=== PATIENT | female | born 1955 | race Caucasian/White ===

== ENCOUNTER 2020-05-16 09:59 | Emergency (ER) | payer MEDICARE ==
--- NOTE | 2020-05-16 10:15 | ED Physician Documentation ---
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 Patient states her dyspnea started around that time.). No: Out of meds, URI (not having fever, nor productive cough. Has had some mild dry cough.) Improved by: Rest. No: O2 Worsened by: Exertion, Coughing. No: Laying flat Associated symptoms: Chest pain / discomfort (tightness), Other (noted her BP to be elevated today. Does not take it regularly.). No: Fever, Hemoptysis, Palpitations Similar symptoms before: Has not had sx before Recently seen: Not recently seen Review of Systems Constitutional: denies: Fever, Chills Nose: denies: Rhinorrhea / runny nose, Congestion Throat: denies: Sore throat Cardiac: denies: Chest pain / pressure, Palpitations, Pedal edema, Calf pain Respiratory: reports: Dyspnea, Cough, Wheezing. denies: Hemoptysis GI: denies: Abdominal Pain, Nausea, Vomiting Skin: denies: Rash, Lesions Neurologic: reports: Generalized weakness. denies: Near syncope PD PAST MEDICAL HISTORY - Past Medical History Cardiovascular: Hypertension Respiratory: None Endocrine/Autoimmune: None GI: None - Present Medications Home Medications: Ambulatory Orders Medication Instructions Recorded Confirmed Albuterol Sulf [Ventolin Hfa 2 - 3 puffs INH Q4HR PRN #1 inhaler 05/16/20 Inhaler] Benzonatate [Tessalon] 100 mg PO TID PRN #20 cap 05/16/20 Ondansetron Odt [Zofran Odt] 1 tab PO PRN PRN 05/16/20 05/16/20 dexAMETHasone [Decadron] 4 mg PO DAILY #7 tablet 05/16/20 - Allergies Allergies/Adverse Reactions: Allergies Allergy/AdvReac Type Severity Reaction Status Date / Time Sulfa (Sulfonamide Allergy Anaphylaxis Verified 05/16/20 10:04 Antibiotics) - Living Situation Living Situation: reports: With friend(s) Living Arrangement: reports: At home - Social History Does the pt smoke?: No PD ED PE NORMAL - Vitals Vital signs reviewed: Yes - General General: Alert and oriented X 3, No acute distress, Well developed/nourished - HEENT HEENT: Pharynx benign - Neck Neck: Supple, no meningeal sign, No adenopathy - Cardiac Cardiac: RRR, No murmur - Respiratory Respiratory: Clear bilaterally (with just some mild exp wheezing/tightness. ) - Abdomen Abdomen: Soft, Non tender - Derm Derm: Normal color, Warm and dry - Extremities Extremities: Normal ROM s pain, No edema, No calf tenderness / cord - Neuro Neuro: Alert and oriented X 3, No motor deficit, Normal speech Results - Vitals Vitals: Vital Signs - 24 hr 05/16/20 05/16/20 05/16/20 10:01 10:31 11:06 Temperature 36.1 C L Heart Rate 95 90 74 Respiratory 24 20 20 Rate Blood Pressure 151/90 H 137/85 H O2 Saturation 96 96 05/16/20 05/16/20 05/16/20 12:14 12:24 12:40 Temperature Heart Rate 96 78 73 Respiratory 22 18 18 Rate Blood Pressure 146/82 H 139/80 H O2 Saturation 98 98 Oxygen O2 Source Room air - EKG (time done) 10:53 Rate: Rate (enter#) (86) Rhythm: NSR [place]: Normal Intervals: Normal VT QRS: Normal Ischemia: Normal ST segments. No: ST elevation c/w ischemia, ST depression - Labs Labs: Laboratory Tests 05/16/20 05/16/20 05/16/20 10:41 10:41 10:41 WBC 8.0 RBC 4.69 Hgb 13.0 Hct 37.8 MCV 80.6 L MCH 27.7 MCHC 34.4 RDW 13.2 Plt Count 187 MPV 9.4 Neut # (Auto) Not Reportable Lymph # (Auto) Not Reportable [place] # (Auto) Not Reportable Eos # (Auto) Not Reportable Baso # (Auto) Not Reportable Absolute Nucleated RBC Not Reportable Total Counted 100 Band Neuts % (Manual) 4 Reactive Lymphs % (Man) 34 Abnorm Lymph % (Manual) 0 Myelocytes % 2 H Nucleated RBC % Not Reportable Neutrophils # (Manual) 2.6 Lymphocytes # (Manual) 3.5 Monocytes # (Manual) 1.4 H Eosinophils # (Manual) 0.3 Basophils # (Manual) 0.0 Differential Comment MANUAL DIFFERENTIAL Manual Slide Review Indicated Sodium 130 L Potassium 3.2 L Chloride 94 L Carbon Dioxide 20 L Anion Gap 16.0 H BUN 12 Creatinine 0.9 Estimated GFR (MDRD) 63 L Glucose 96 Calcium 8.4 L Total Bilirubin 1.8 H AST 38 ALT 23 Alkaline Phosphatase 74 Troponin I High Sens 12.9 B-Natriuretic Peptide Total Protein 6.2 L Albumin 3.5 Globulin 2.7 Albumin/Globulin Ratio 1.3 Lipase 20 L 05/16/20 10:41 WBC RBC Hgb Hct MCV MCH MCHC RDW Plt Count MPV Neut # (Auto) Lymph # (Auto) [place] # (Auto) Eos # (Auto) Baso # (Auto) Absolute Nucleated RBC Total Counted Band Neuts % (Manual) Reactive Lymphs % (Man) Abnorm Lymph % (Manual) Myelocytes % Nucleated RBC % Neutrophils # (Manual) Lymphocytes # (Manual) Monocytes # (Manual) Eosinophils # (Manual) Basophils # (Manual) Differential Comment Manual Slide Review Sodium Potassium Chloride Carbon Dioxide Anion Gap BUN Creatinine Estimated GFR (MDRD) Glucose Calcium Total Bilirubin AST ALT Alkaline Phosphatase Troponin I High Sens B-Natriuretic Peptide 19 Total Protein Albumin Globulin Albumin/Globulin Ratio Lipase - Rads (name of study) chest xray Radiology: Prelim report reviewed (no acute process), See rad report PD MEDICAL DECISION MAKING - ED course Complexity details: reviewed results (BP a bit elevated but not enough for her symptoms. ), considered differential (I think her symptoms are reactive to environmental irritants from her roommates cats and also the chemical assembly cleaner used to clean up. No signs of CHF, [place], pneumonia. Improved with neb treatment. ), d/w patient Departure - Departure Disposition: 01 Home, Self Care Clinical Impression: Dyspnea Qualifiers: Dyspnea type: shortness of breath Qualified Code(s): R06.02 - Shortness of breath Reactive airway disease Qualifiers: Asthma severity: mild Asthma persistence: intermittent Asthma complication type: with acute exacerbation Qualified Code(s): J45.21 - Mild intermittent asthma with (acute) exacerbation Condition: Stable Record reviewed to determine appropriate education?: Yes Instructions: ED Bronchitis Asthmatic Prescriptions: Albuterol Sulf [Ventolin Hfa Inhaler] 2 - 3 puffs INH Q4HR PRN #1 inhaler PRN Reason: Shortness Of Air/Wheezing dexAMETHasone [Decadron] 4 mg PO DAILY #7 tablet Benzonatate [Tessalon] 100 mg PO TID PRN #20 cap PRN Reason: Cough Comments: I think you are likely having bronchial and airway irritation and inflammation from environmental factors. No signs of pneumonia, heart failure, heart attack, collapsed lung or other serious concerns. I would treat this with an albuterol inhalerl 2 to 3 puffs 4 times a day and extra times as needed. Also Decadron steroid for inflammation of the airways. Add Tessalon if needed for cough. I would anticipate improvement over the next several days and close to baseline by 4-5 days. Follow-up if not improving well over the next several days. Discharge Date/Time: 05/16/20 12:45
[2020-05-16] MEDS ORDERED: MAG HYDROX/AL HYDROX/SIMETH 30 ML UDC PO STA (10:43)
[2020-05-16] MEDS ORDERED: ALBUTEROL NEB 2.5 MG/3 ML INH STA (10:43)
[2020-05-16 10:54] LABS: BASOPHILS % (AUTO) 0.5 %; EOSINOPHILS % (AUTO) 1.9 %; HCT - HEMATOCRIT 37.8 % (37.0-47.0); LYMPHOCYTES % (AUTO) 61.3 %; MEAN CORPUSCULAR HEMOGLOBIN 27.7 pg (27.0-31.0); MEAN CORPUSCULAR HGB CONC 34.4 g/dL (32.0-36.0); MEAN CORPUSCULAR VOLUME 80.6 fL (81.0-99.0); MEAN PLATELET VOLUME 9.4 fL (7.9-10.8); MONOCYTES % (AUTO) 8.3 %; NEUTROPHILS % (AUTO) 27.4 %; PLT - PLATELET COUNT 187 10^3/uL (130-450); RED BLOOD COUNT 4.69 10^6/uL (4.20-5.40); RED CELL DISTRIBUTION WIDTH 13.2 % (12.0-15.0)
[2020-05-16 10:57] LABS: SLIDE REVIEW? Indicated
[2020-05-16 10:58] LABS: ABNORMAL LYMPHS % (MANUAL) 0 %
[2020-05-16 11:10] LABS: ALBUMIN 3.5 g/dL (3.2-5.5); ALBUMIN/GLOBULIN RATIO 1.3 (1.0-2.2); BILIRUBIN,TOTAL 1.8 mg/dL (0.2-1.0); CALCIUM 8.4 mg/dL (8.5-10.3); CREATININE 0.9 mg/dL (0.4-1.0); POTASSIUM 3.2 mmol/L (3.5-5.0); TOTAL PROTEIN 6.2 g/dL (6.7-8.2)
--- NOTE | 2020-05-16 11:20 | XRAY Report ---
PROCEDURE: Chest 1 View X-Ray INDICATIONS: Chest Pain TECHNIQUE: One view of the chest was acquired. COMPARISON: None FINDINGS: Surgical changes and devices: None. Lungs and pleura: No pleural effusions or pneumothorax. Lungs are clear. Mediastinum: Mediastinal contours appear normal. Heart size is normal. Bones and chest wall: No suspicious bony lesions. Overlying soft tissues appear unremarkable. IMPRESSION: No acute cardiopulmonary disease process. Reviewed by: Osiris Liang MD, PhD on 05/16/2020 11:18 AM PDT Approved by: Osiris Liang MD, PhD on 05/16/2020 11:18 AM PDT Station ID: [id number]
[2020-05-16 11:25] LABS: BAND NEUTROPHILS % (MANUAL) 4 %; DIFFERENTIAL COMMENT MANUAL DIFFERENTIAL; EOSINOPHILS # (MANUAL) 0.3 10^3/uL (0-0.7); LYMPHOCYTES # (MANUAL) 3.5 10^3/uL (1.5-3.5); LYMPHOCYTES % (MANUAL) 10 %; MONOCYTES # (MANUAL) 1.4 10^3/uL (0.0-1.0); MYELOCYTES % (MANUAL) 2 %; NEUTROPHILS # (MANUAL) 2.6 10^3/uL (1.5-6.6); REACTIVE LYMPHS % (MANUAL) 34 %
[2020-05-16] MEDS ORDERED: DEXAMETHASONE 10 MG/ML VIAL IVP STA (11:39)
[2020-05-16] MEDS ORDERED: ALBUTEROL 1 PUFF INH STA (11:53)
[2020-05-16] MEDS ORDERED: BENZONATATE 100 MG CAPSULE PO STA (11:54)
[2020-05-16 12:48] VITALS: BP 139/80
== END 2020-05-16 12:45 | disposition home or self-care (01) ==
LOC: ED 09:59
DX: J45.21 Mild intermittent asthma with (acute) exacerbation (principal); I10 Essential (primary) hypertension
CPT/HCPCS: 36415; 71045; 80053; 83690; 83880; 84484; 85025; 93005; 94640; 96374; 99284; A9270

== ENCOUNTER 2020-06-14 08:00 | Outpatient (CLI) | payer MEDICARE ==
[2020-06-14 20:34] LABS: BACTERIAL VAGINOSIS DNA NEGATIVE (NEGATIVE); CANDIDA GLABRATA DNA NEGATIVE (NEGATIVE); CANDIDA GROUP DNA NEGATIVE (NEGATIVE); CANDIDA KRUSEI DNA NEGATIVE (NEGATIVE); TRICHOMONAS VAGINALIS DNA NEGATIVE (NEGATIVE)
== END 2020-06-14 23:59 | disposition home or self-care (01) ==
LOC: LAB.R 08:00
PROVIDERS: ATTEND Family Medicine
DX: N76.0 Acute vaginitis (principal)
CPT/HCPCS: 87661; 87801

== ENCOUNTER 2022-09-05 08:45 | Outpatient (CLI) | payer MEDICARE | END 2022-09-05 09:00 | disposition home or self-care (01) | LOC: DI.N 08:45 | PROVIDERS: ATTEND Family Medicine | DX: Z53.9 Procedure and treatment not carried out, unspecified reason (principal) ==

== ENCOUNTER 2022-09-05 09:00 | Outpatient (CLI) | payer MEDICARE | END 2022-09-05 09:15 | disposition home or self-care (01) | LOC: LAB.N 09:00 | PROVIDERS: ATTEND Family Medicine | DX: M54.50 Low back pain, unspecified (principal); R31.9 Hematuria, unspecified | CPT/HCPCS: 87086 ==

== ENCOUNTER 2022-09-13 09:25 | Outpatient (CLI) | payer MEDICARE | END 2022-09-13 09:26 | disposition short-term general hospital (02) | LOC: EMS 09:25 | DX: M54.50 Low back pain, unspecified (principal); R10.814 Left lower quadrant abdominal tenderness; R10.813 Right lower quadrant abdominal tenderness; R11.2 Nausea with vomiting, unspecified | CPT/HCPCS: A0425; A0427; A0888 ==

== ENCOUNTER 2023-08-07 16:04 | Outpatient (CLI) | payer MEDICARE ==
[2023-08-07 16:40] LABS: CALCIUM 11.3 mg/dL (8.5-10.3); CREATININE 1.2 mg/dL (0.6-1.3); PHOSPHORUS 2.6 mg/dL (2.5-5.0); POTASSIUM 4.2 mmol/L (3.5-4.5); URIC ACID 5.6 mg/dL (2.3-6.6)
== END 2023-08-07 16:05 | disposition home or self-care (01) ==
LOC: LAB 16:04
PROVIDERS: ATTEND Internal Medicine Medical Oncology
DX: C84.48 Peripheral T-cell lymphoma, not elsewhere classified, lymph nodes of multiple sites (principal)
CPT/HCPCS: 36415; 80048; 84100; 84550

== ENCOUNTER 2023-08-21 09:52 | Day surgery (SDC) | payer MEDICARE ==
[2023-08-21] MEDS: LACTATED RINGERS 1,000 ML IV ONE ×2 (10:03→13:41)
[2023-08-21] MEDS ORDERED: BUPIVACAINE 0.5% PF 10 ML VIAL ONE (11:31)
[2023-08-21] MEDS ORDERED: LIDOCAINE 1%-EPI 1:100000 20 ML MDV ONE (11:31)
--- NOTE | 2023-08-21 11:31 | ANESTHESIA ---
Pre-Anesthesia VS, & Labs - Diagnosis T Cell Lymphoma - Procedure Port Placement Vital Signs: Temp Pulse Resp BP Pulse Ox O2 Flow Rate 36.5 C 100 14 165/97 H 100 08/21/23 10:18 08/21/23 10:18 08/21/23 10:18 08/21/23 10:18 08/21/23 10:18 Height: 5 ft 4 in Weight (kg): 64.6 kg Body Mass Index: 24.4 BMI Classification: Normal - NPO >8 hours - Is Patient ?: No Home Medications and Allergies Home Medications: Ambulatory Orders Omeprazole 20 mg PO TID 08/20/23 Valacyclovir HCl [Valtrex] 1,000 mg PO DAILY 08/20/23 Magic Mouthwash 1 each PO TID 08/21/23 allopurinoL [Allopurinol] 300 mg PO DAILY 08/21/23 amLODIPine [Norvasc] 10 mg PO DAILY 08/21/23 Omeprazole 20 mg PO TID 08/20/23 Valacyclovir HCl [Valtrex] 1,000 mg PO DAILY 08/20/23 Magic Mouthwash 1 each PO TID 08/21/23 allopurinoL [Allopurinol] 300 mg PO DAILY 08/21/23 amLODIPine [Norvasc] 10 mg PO DAILY 08/21/23 Allergies/Adverse Reactions: Allergies Allergy/AdvReac Type Severity Reaction Status Date / Time Sulfa (Sulfonamide Allergy Anaphylaxis Verified 05/16/20 10:04 Antibiotics) Anes History & Medical History - Anesthetic History Anesthesia Complications: reports: No previous complications Family history of Anesthesia Complications: Denies Family history of Malignant Hyperthermia: Denies - Medical History Cardiovascular: reports: Hypertension Pulmonary: reports: None Gastrointestinal: reports: None Urinary: reports: None Neuro: reports: None Musculoskeletal: reports: None Endocrine/Autoimmune: reports: None Blood Disorders: reports: None Skin: reports: None Smoking Status: Never smoker Psychosocial: reports: No issues indicated History of Cancer?: Yes (T Cell Lymphoma current; no radiation ) - Surgical History Eyes Ears Nose Throat (EENT): reports: Tonsil/Adenoidectomy Gynecologic: reports: Tubal ligation, Breast reduction Results - EKG Results EKG Comparison: Reviewed EKG, Normal EKG Exam General: Alert, Oriented x3, Cooperative, No acute distress Dental: WNL Mouth Openin Fingerbreadth Neck Mobility: Normal Mallampati classification: I Thyromental Distance: 4-6 cm Respiratory: Lungs clear, Normal breath sounds, No respiratory distress, No accessory muscle use Cardiovascular: Regular rate, Normal S1, Normal S2, No murmurs Mental/Cognitive Status: Alert/Oriented X3, Normal for patient Cognitive Status: Within normal limits Plan Anesthesia Type: General Consent for Procedure(s) Verified and Reviewed: Yes Code Status: Attempt Resuscitation ASA classification: 3-Severe systemic disease Is this case an emergency?: No
[2023-08-21] MEDS ORDERED: PROPOFOL 500 MG/50 ML 500 MG/50 ML VIAL ONE (11:40)
[2023-08-21] MEDS ORDERED: PROPOFOL 200 MG/20 ML VIAL IVP ONE (11:40)
[2023-08-21] MEDS ORDERED: MIDAZOLAM 2 MG/2 ML VIAL ONE (11:41)
[2023-08-21] MEDS ORDERED: fentaNYL 100 MCG/2 ML VIAL ONE (11:42)
[2023-08-21] MEDS ORDERED: LIDOCAINE-PF 2% 10 ML AMP SUBQ ONE (11:42)
[2023-08-21] MEDS: LIDOCAINE 1%-EPI 1:100000 20 ML MDV SUBQ ONE ×2 (12:51)
[2023-08-21] MEDS: BUPIVACAINE 0.5% PF 10 ML VIAL IM ONE ×2 (12:51)
[2023-08-21] MEDS ORDERED: ONDANSETRON 4 MG/2 ML VIAL ONE (12:53)
[2023-08-21] MEDS ORDERED: DEXAMETHASONE 4 MG/ML VIAL ONE (12:53)
[2023-08-21] MEDS ORDERED: PHENYLEPHRINE HCL 0.5 MG/5 ML AMPULE ONE (13:05)
[2023-08-21] MEDS ORDERED: ONDANSETRON 4 MG/2 ML VIAL IVP PRN (14:05)
[2023-08-21] MEDS ORDERED: ACETAMINOPHEN 500 MG TABLET PO PRN (14:05)
[2023-08-21 14:09] VITALS: BP 114/72; O2SAT 98
--- NOTE | 2023-08-21 14:12 | OPERATIVE REPORT ---
Operative Report - General Procedure Date: 08/21/23 Planned Procedure: placement of portacatheter Pre-Op Diagnosis: t cell lymphoma Procedure Performed: placement of R IJ portacatheter with ultrasound and fluoroscopy guidance Post Op Diagnosis: t cell lymphoma - Procedure Note Primary Surgeon: Dr. Tracy Blackmon Anesthesia Provider: Della Dean CRNA Anesthesia Technique: Local, MAC Pathology: none Estimated Blood Loss (mL): 5 Indications: The patient was diagnosed with T-cell lymphoma. Her oncology team would like her to have a portacatheter. She was seen and evaluated in preop today. We discussed the risks, benefits, and alternatives of the procedure including bleeding, infection, damage to surrounding structures including blood vessels, and pneumothorax, as well as as the risk for infection or dysfunction of the port requiring removal and/or replacement. The patient voiced understanding, her questions were answered, and she wished to proceed. A consent was signed by the patient prior to surgery today. Findings: 1.Patent right internal jugular vein 2. Portacatheter flushes and draws easily. 3. Port loaded with 2.5 mL 100 units/mL heparin Complications: none - Other Other Information/Narrative: The patient was taken to the operative suite and placed in the supine position preoperative ERAS medications given. Preoperative antibiotics given. MAC anesthesia was induced to the appropriate level of consciousness. An ultrasound was used to verify the right internal jugular vein was widely patent. The patient was then prepped and draped in the usual, sterile fashion. Next, a sterile ultrasound probe was used to visualize the right internal jugular vein local anesthetic was injected into the skin and subcutaneous tissues overlying this vessel and an 11 blade scalpel was used to make a small skin huan. Next, under direct ultrasound guidance, a Cook needle was used to gain access to the right internal jugular vein. This was successful on the first attempt. There was excellent return of dark red nonpulsatile blood. A guidewire was passed through the Cook needle without resistance. Fluoroscopy was used to verify the position of the wire. Ultrasound was also used to verify the position of the wire. Next, attention was turned to the chest. The location was chosen on the right anterior chest wall for the portacatheter to sit. The skin and subcutaneous tissues in this area were anesthetized with local as was the path which the catheter would follow up to the neck incision. A 15 blade scalpel was used to make a 2 cm incision in the which was carried down through the skin and subcutaneous tissues to the level of the clavipectoral fascia. A pocket was made with blunt dissection to accommodate the port. Port easily fit within the pocket. 2 interrupted sutures of 3-0 PDS were placed through the port to tack it to the clavipectoral fascia. These were tied into place and then the port was tunneled from the inferior chest wall incision to the superior neck incision. Next, the catheter was cut to the appropriate length, 20cm, under direct fluoroscopic guidance. A dilator and sheath were passed over the guidewire under direct fluoroscopic guidance and the dilator and guidewire were removed leaving only the breakaway sheath in place. The catheter was passed through the sheath and the sheath was broken away. The catheter was the only thing that remained within the vessel. Fluoroscopy confirmed that the catheter tip was in good position and that there were no kinks at the neck. The catheter flushed and blair easily. Next, 3-0 Vicryl was used in an interrupted fashion to reapproximate the deep dermal tissues at the chest incision. Then, 4-0 Monocryl was used in an interrupted subcuticular fashion to reapproximate the skin at the neck incision and in a running subcuticular fashion to reapproximate the skin at the chest incision. A sterile dressing of skin glue was placed. The port was flushed with 2.5 mL 100 units/mL heparinized saline. The patient tolerated the procedure well and there were no complications. A postoperative chest x-ray is pending at this time.
--- NOTE | 2023-08-21 14:15 | XRAY Report ---
PROCEDURE: Post Port Placement 1V CXR INDICATIONS: PAC placement in R IJ TECHNIQUE: One view of the chest was acquired. COMPARISON: None. FINDINGS: Surgical changes and devices: Right-sided Port-A-Cath is present with distal tip projecting over the proximal SVC. Lungs and pleura: No pleural effusions or pneumothorax. Lungs are clear. Mediastinum: Mediastinal contours appear normal. Heart size is normal. Bones and chest wall: No suspicious bony lesions. Overlying soft tissues appear unremarkable. IMPRESSION: Right Port-A-Cath in appropriate location. Reviewed by: Ju Springer MD on 08/21/2023 2:14 PM PDT Approved by: Ju Springer MD on 08/21/2023 2:14 PM PDT Station ID: [id number]
--- NOTE | 2023-08-21 14:39 | ANESTHESIA POST OP EVALUATION ---
Anesthesia Post Eval - Post Anesthesia Eval Vitals: Last Vital Signs Temp 36 C L 08/21/23 13:41 Pulse 91 08/21/23 14:01 Resp 18 08/21/23 14:01 BP 114/72 08/21/23 14:01 Pulse Ox 98 08/21/23 14:01 O2 Flow Rate CV Function Including HR & BP: Stable Pain Control: Satisfactory Nausea & Vomiting: Negative Mental Status: Baseline Respiratory Status: Airway Patent Hydration Status: Satisfactory Anesthesia Complications: None
--- NOTE | 2023-08-21 21:25 | XRAY Report ---
PROCEDURE: OR Port-A-Cath INDICATIONS: PORTACATH PLACEMENT FLUORO TIME: 000.2 TECHNIQUE: Real time fluoroscopy was performed of the thorax. COMPARISON: None. FINDINGS: Intraoperative fluoroscopic images shows placement of right chest wall Port-A-Cath, the tip is in SVC . IMPRESSION: Fluoroscopy guidance was provided intraoperatively for right chest wall Port-A-Cath placement. Reviewed by: Praneeth Jordan MD on 08/21/2023 9:24 PM PDT Approved by: Praneeth Jordan MD on 08/21/2023 9:24 PM PDT Station ID: [id number]
== END 2023-08-21 09:53 | disposition home or self-care (01) ==
LOC: SDS 09:52
PROVIDERS: ATTEND Surgery
DX: C91.50 Adult T-cell lymphoma/leukemia (HTLV-1-associated) not having achieved remission (principal); I10 Essential (primary) hypertension
CPT/HCPCS: 36561; C1788; J2372; J7120

== ENCOUNTER 2023-09-24 19:46 | Inpatient (IN) | payer MEDICARE ==
--- NOTE | 2023-09-24 20:51 | ED Physician Documentation ---
PD HPI FEVER - Stated complaint Stated Complaint: FEVER - Chief complaint Chief Complaint: Fever - History obtained from History obtained from: Patient - Additional information Additional information: HPI from patient. Patient is undergoing chemotherapy, the third (out of 6) round of CHOP on 09/18/2023; this is to treat angioimmunoblastic t-cell lymphoma. Patient says she was feeling well yesterday but, since waking this morning, she has had fatigue, generalized weakness throughout the day. She has had fevers today to a Tmax of 102.1. She denies cough, shortness of breath, abdominal pain, nausea/vomiting, diarrhea. She does have a sore throat secondary to thrush (her sore throat is not new) Review of Systems Constitutional: reports: Fever, Chills, Myalgias, Fatigue, Sweats Nose: denies: Congestion, Sinus pressure / pain Throat: reports: Sore throat Cardiac: reports: Reviewed and negative Respiratory: reports: Reviewed and negative GI: reports: Reviewed and negative : reports: Frequency. denies: Dysuria Skin: denies: Rash Neurologic: reports: Generalized weakness. 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 HEENT: Tonsil/Adenoidectomy - Present Medications Home Medications: Ambulatory Orders Medication Instructions Recorded Confirmed Omeprazole 20 mg PO TID 08/20/23 09/25/23 Valacyclovir HCl [Valtrex] 1,000 mg PO DAILY 08/20/23 09/25/23 Magic Mouthwash 1 each PO TID 08/21/23 09/25/23 allopurinoL [Allopurinol] 300 mg PO DAILY 08/21/23 09/25/23 amLODIPine [Norvasc] 10 mg PO DAILY 08/21/23 09/25/23 levoFLOXacin [Levaquin] 500 mg PO ONCE 10 Days #20 tablet 09/04/23 09/04/23 predniSONE [Prednisone] 100 mg PO 09/12/23 Acyclovir 400 mg PO BID 30 Days #60 tablet 09/18/23 09/25/23 Prochlorperazine [Compazine] 10 mg PO Q6H 10 Days #30 tablet 09/18/23 Benzonatate [Tessalon] 100 mg PO TID 09/25/23 09/25/23 Ondansetron [Ondansetron Odt] 8 mg PO Q12H PRN 09/25/23 09/25/23 - Allergies Allergies/Adverse Reactions: Allergies Allergy/AdvReac Type Severity Reaction Status Date / Time Sulfa (Sulfonamide Allergy Anaphylaxis Verified 09/24/23 20:26 Antibiotics) - Social History Does the pt smoke?: No Smoking Status: Never smoker Does the pt drink ETOH?: No Does the pt have substance abuse?: No - Immunizations Immunizations are current?: Yes PD ED PE NORMAL - Vitals Vital signs reviewed: Yes - General General: Alert and oriented X 3, No acute distress, Well developed/nourished - HEENT HEENT: Moist mucous membranes - Neck Neck: Supple, no meningeal sign - Cardiac Cardiac: No murmur - Respiratory Respiratory: No respiratory distress, Clear bilaterally - Abdomen Abdomen: Soft, Non tender, Non distended - Back Back: No CVA TTP - Derm Derm: Warm and dry - Extremities Extremities: No edema - Neuro Neuro: Alert and oriented X 3 Eye Opening: Spontaneous Motor: Obeys Commands Verbal: Oriented GCS Score: 15 PD ED PE EXPANDED - Cardiac Cardiac: Tachy, Regular Rhythm - Derm Derm: Pale Results - Vitals Vitals: Vital Signs - 24 hr 09/24/23 09/24/23 09/24/23 20:21 20:58 21:58 Temperature 38.0 C H 36.9 C Heart Rate 115 H 95 87 Respiratory 18 16 19 Rate Blood Pressure 147/71 H 138/64 H 122/67 O2 Saturation 99 99 94 09/24/23 09/24/23 09/24/23 22:28 22:30 23:00 Temperature 36.8 C 36 C L Heart Rate 88 88 84 Respiratory 16 16 16 Rate Blood Pressure 109/54 L 107/63 123/68 O2 Saturation 93 92 98 09/24/23 09/25/23 09/25/23 23:30 00:00 01:30 Temperature 36 C L 36.2 C L 36.2 C L Heart Rate 117 H 79 84 Respiratory 18 16 16 Rate Blood Pressure 112/70 122/63 122/63 O2 Saturation 98 98 98 09/25/23 02:00 Temperature 36 C L Heart Rate 81 Respiratory 17 Rate Blood Pressure 128/70 O2 Saturation 97 Oxygen O2 Source Room air - Labs Labs: Laboratory Tests 09/24/23 09/24/23 09/24/23 20:43 20:43 20:43 WBC 0.2 L* RBC 2.68 L Hgb 7.3 L Hct 22.9 L MCV 85.4 MCH 27.2 MCHC 31.9 L RDW 19.1 H Plt Count 214 MPV 9.2 Neut # (Auto) Not Reportable Lymph # (Auto) Not Reportable Jenkins # (Auto) Not Reportable Eos # (Auto) Not Reportable Baso # (Auto) Not Reportable Absolute Nucleated RBC Not Reportable Total Counted 25 Band Neuts % (Manual) 0 Abnorm Lymph % (Manual) 0 Nucleated RBC % Not Reportable Neutrophils # (Manual) 0.0 L* Lymphocytes # (Manual) 0.2 L Monocytes # (Manual) 0.0 Eosinophils # (Manual) 0.0 Basophils # (Manual) 0.0 Differential Comment MANUAL DIFFERENTIAL Platelet Estimate NORMAL (130-450,000) RBC Morph Micro Appear 1+ HYPOCHROMASIA Sodium 135 Potassium 3.6 Chloride 102 Carbon Dioxide 28 Anion Gap 5.0 L BUN 18 Creatinine 0.7 Estimated GFR (MDRD) 83 L Glucose 96 Lactic Acid 0.6 Calcium 9.3 Total Bilirubin 1.4 H AST 18 ALT 24 Alkaline Phosphatase 81 Total Protein 5.6 L Albumin 3.4 Globulin 2.2 Albumin/Globulin Ratio 1.5 Urine Color Urine Clarity Urine pH Ur Specific Midway Urine Protein Urine Glucose (UA) Urine Ketones Urine Occult Blood Urine Nitrite Urine Bilirubin Urine Urobilinogen Ur Leukocyte Esterase Urine RBC Urine WBC Ur Squamous Epith Cells Urine Bacteria Urine Culture Comments Nasal Adenovirus (PCR) Nasal B. parapertussis DNA (PCR) Nasal Coronavir 229E PCR Nasal Coronavir HKU1 PCR Nasal Coronavir NL63 PCR Nasal Coronavir OC43 PCR Nasal Enterovir/Rhinovir PCR Nasal Influenza B PCR Nasal Influenza A PCR Nasal Parainfluen 1 PCR Nasal Parainfluen 2 PCR Nasal Parainfluen 3 PCR Nasal Parainfluen 4 PCR Nasal RSV (PCR) Nasal B.pertussis DNA PCR Nasal C.pneumoniae (PCR) Raul Human Metapneumo PCR Nasal M.pneumoniae (PCR) Nasal SARS-CoV-2 (PCR) 09/24/23 09/24/23 20:43 20:57 WBC RBC Hgb Hct MCV MCH MCHC RDW Plt Count MPV Neut # (Auto) Lymph # (Auto) Jenkins # (Auto) Eos # (Auto) Baso # (Auto) Absolute Nucleated RBC Total Counted Band Neuts % (Manual) Abnorm Lymph % (Manual) Nucleated RBC % Neutrophils # (Manual) Lymphocytes # (Manual) Monocytes # (Manual) Eosinophils # (Manual) Basophils # (Manual) Differential Comment Platelet Estimate RBC Morph Micro Appear Sodium Potassium Chloride Carbon Dioxide Anion Gap BUN Creatinine Estimated GFR (MDRD) Glucose Lactic Acid Calcium Total Bilirubin AST ALT Alkaline Phosphatase Total Protein Albumin Globulin Albumin/Globulin Ratio Urine Color YELLOW Urine Clarity CLEAR Urine pH 7.5 Ur Specific Midway 1.020 Urine Protein NEGATIVE Urine Glucose (UA) NEGATIVE Urine Ketones NEGATIVE Urine Occult Blood NEGATIVE Urine Nitrite NEGATIVE Urine Bilirubin NEGATIVE Urine Urobilinogen 0.2 (NORMAL) Ur Leukocyte Esterase NEGATIVE Urine RBC 0-5 Urine WBC 0-3 Ur Squamous Epith Cells RARE Squamous Urine Bacteria Rare Urine Culture Comments NOT INDICATED Nasal Adenovirus (PCR) NOT DETECTED Nasal B. parapertussis DNA (PCR) NOT DETECTED Nasal Coronavir 229E PCR NOT DETECTED Nasal Coronavir HKU1 PCR NOT DETECTED Nasal Coronavir NL63 PCR NOT DETECTED Nasal Coronavir OC43 PCR NOT DETECTED Nasal Enterovir/Rhinovir PCR DETECTED A Nasal Influenza B PCR NOT DETECTED Nasal Influenza A PCR NOT DETECTED Nasal Parainfluen 1 PCR NOT DETECTED Nasal Parainfluen 2 PCR NOT DETECTED Nasal Parainfluen 3 PCR NOT DETECTED Nasal Parainfluen 4 PCR NOT DETECTED Nasal RSV (PCR) NOT DETECTED Nasal B.pertussis DNA PCR NOT DETECTED Nasal C.pneumoniae (PCR) NOT DETECTED Raul Human Metapneumo PCR NOT DETECTED Nasal M.pneumoniae (PCR) NOT DETECTED Nasal SARS-CoV-2 (PCR) NOT DETECTED - Rads (name of study) chest xray Relevant Findings:: Prelim report reviewed, See rad report PD Medical Decision Making - ED course Complexity details: reviewed results, re-evaluated patient, considered differential, d/w patient ED course: Patient presents with malaise, fatigue, and fever. She is severely neutropenic on CBC with WBC 0.2 and 0.0 neutrophils. Looking at previous results, the WBC was 9.2 on the of this month, 0.6 on 03 September. She is also significantly anemic tonight with hemoglobin of 7.3 (9.2 on 09/17, 8.5 on 09/03). Tonight's platelet level is normal. Lactate normal (0.6). Unremarkable urinalysis, chest xray. Respiratory PCR panel is positive for enterovirus/rhinovirus. Two sets of blood cultures are drawn and sent to lab. The patient is in NAD and unremarkable exam including lungs clear to auscultation bilaterally, nontender abdominal exam. Admission to the inpatient setting is indicated for neutropenic fever. She is given 4.5 g of Zosyn IV. I discussed this case with the patient's on-call oncologist for her group who agrees with admission, and she says that patient is appropriate for admission to [facility]. d/w [employer] telehealth practitioner. There was significant delay in hearing back from them, as the consulted telehealth practitioner called to my [employer] to inform that they were having problems connecting to [employer]. Per there request, I entered a second/new consult and eventually heard back from them. Accepted to hospitalist service Departure - Departure Disposition: [facility] DC/[facility] Clinical Impression: Neutropenic fever Condition: Stable Discharge Date/Time: 09/25/23 03:13
[2023-09-24 20:56] LABS: EOSINOPHILS % (AUTO) 5.6 %; HCT - HEMATOCRIT 22.9 % (37.0-47.0); HGB - HEMOGLOBIN 7.3 g/dL (12.0-16.0); LYMPHOCYTES % (AUTO) 83.3 %; MEAN CORPUSCULAR HEMOGLOBIN 27.2 pg (27.0-31.0); MEAN CORPUSCULAR HGB CONC 31.9 g/dL (32.0-36.0); MEAN CORPUSCULAR VOLUME 85.4 fL (81.0-99.0); MEAN PLATELET VOLUME 9.2 fL (7.9-10.8); MONOCYTES % (AUTO) 5.6 %; NEUTROPHILS % (AUTO) 5.5 %; PLT - PLATELET COUNT 214 10^3/uL (130-450); RED BLOOD COUNT 2.68 10^6/uL (4.20-5.40); RED CELL DISTRIBUTION WIDTH 19.1 % (12.0-15.0)
[2023-09-24 21:04] LABS: WHITE BLOOD COUNT 0.2 x10^3/uL (4.8-10.8)
[2023-09-24 21:08] LABS: ABNORMAL LYMPHS % (MANUAL) 0 %; BAND NEUTROPHILS % (MANUAL) 0 %
[2023-09-24] MEDS: ACETAMINOPHEN 325 MG TABLET PO STA (21:21)
[2023-09-24 21:24] LABS: BILIRUBIN,URINE NEGATIVE (NEGATIVE); GLUCOSE, URINE (UA) NEGATIVE (NEGATIVE); KETONES,URINE (UA) NEGATIVE (NEGATIVE); LEUKOCYTE ESTERASE, URINE NEGATIVE (NEGATIVE); NITRITE,URINE NEGATIVE (NEGATIVE); OCCULT BLOOD,URINE NEGATIVE (NEGATIVE); PH,URINE 7.5 PH (5.0-7.5); PROTEIN,URINE NEGATIVE (NEGATIVE); UROBILINOGEN,URINE 0.2 (NORMAL) E.U./dL (NORMAL)
[2023-09-24 21:26] LABS: ALBUMIN 3.4 g/dL (3.2-5.5); ALBUMIN/GLOBULIN RATIO 1.5 (1.0-2.2); BILIRUBIN,TOTAL 1.4 mg/dL (0.2-1.0); CALCIUM 9.3 mg/dL (8.5-10.3); CREATININE 0.7 mg/dL (0.6-1.3); POTASSIUM 3.6 mmol/L (3.5-4.5); TOTAL PROTEIN 5.6 g/dL (6.4-8.9)
[2023-09-24 21:33] LABS: CLARITY,URINE CLEAR (CLEAR)
[2023-09-24 21:41] LABS: BASOPHILS % (MANUAL) 4 %; LYMPHOCYTES # (MANUAL) 0.2 10^3/uL (1.5-3.5); LYMPHOCYTES % (MANUAL) 84 %
[2023-09-24 21:43] LABS: DIFFERENTIAL COMMENT MANUAL DIFFERENTIAL; PLATELET ESTIMATE, MANUAL NORMAL (130-450,000) (NORMAL)
[2023-09-24 21:47] LABS: B. PARAPERTUSSIS- RESP PCR PAN NOT DETECTED; B. PERTUSSIS- RESP PCR PANEL NOT DETECTED; C. PNEUMONIAE- RESP PCR PANEL NOT DETECTED; CORONAVIRUS 229E-RESP PCR NOT DETECTED; CORONAVIRUS HKU1-RESP PCR NOT DETECTED; CORONAVIRUS NL63-RESP PCR NOT DETECTED; CORONAVIRUS OC43-RESP PCR NOT DETECTED; HUMAN METAPNEUMOVIRUS NOT DETECTED; INFLUENZA A- RESP PCR PANEL NOT DETECTED; INFLUENZA B - RESP PCR PANEL NOT DETECTED; M. PNEUMONIAE- RESP PCR PANEL NOT DETECTED; PARAINFLUENZA VIRUS 1 NOT DETECTED; PARAINFLUENZA VIRUS 2 NOT DETECTED; PARAINFLUENZA VIRUS 3 NOT DETECTED; PARAINFLUENZA VIRUS 4 NOT DETECTED; RHINOVIRUS/ENTEROVIRUS DETECTED; RSV- RESP PCR PANEL NOT DETECTED; SARS-CoV-2 -RESP PCR PANEL NOT DETECTED
[2023-09-24 21:49] LABS: BACTERIA,URINE Rare /HPF (None Seen); RBC,URINE 0-5 /HPF (0-5); SQUAMOUS EPITHELIAL CELL,UR RARE Squamous (<= Few); WBC,URINE 0-3 /HPF (0-5)
--- NOTE | 2023-09-24 23:55 | XRAY Report ---
PROCEDURE: Chest 1V INDICATIONS: Sepsis TECHNIQUE: One view of the chest was acquired. COMPARISON: 08/21/2023 FINDINGS: Surgical changes and devices: Tunneled right port device is unchanged in positioning. Lungs and pleura: No pleural effusions or pneumothorax. Minimal streaky bibasilar opacities favored to represent atelectasis. No dense consolidations. Mediastinum: Mediastinal contours appear normal. Heart size is normal. Bones and chest wall: No suspicious bony lesions. Overlying soft tissues appear unremarkable. IMPRESSION: No acute cardiopulmonary process. Minimal streaky bibasilar opacities favored to represent atelectasis. No definite consolidation. Reviewed by: Christian Flood MD on 09/24/2023 11:54 PM PDT Approved by: Christian Flood MD on 09/24/2023 11:54 PM PDT Station ID: [id number]
[2023-09-25] MEDS: PIPERACILLIN/TAZOBACTAM 4.5 GM in SODIUM CHLORIDE 0.9% MINIBAG 100 ML IV STA (00:08)
[2023-09-25] MEDS ORDERED: SODIUM CHLORIDE FLUSH 0.9% 10 ML SYRINGE IVP PRN (02:42)
--- NOTE | 2023-09-25 02:57 | HISTORY & PHYSICAL EXAMINATION ---
Chief Complaint - Chief Complaint Chief Complaint: fatigue History of Present Illness - Admitted From Admitted From:: home - History Obtained From Records Reviewed: chart review History obtained from: patient, her daughter, ER staff Exam Limitations: telemedicine - History of Present Illness HPI Comment/Other: Ms Wright is a 68 yo F with angioimmunoblastic T cell lymphoma, currently undergoing chemotherapy with CHOP - last treatment on 09/18/23, which was her 3rd of 6 treatments. Patient took her post chemo prednisone/levaquin x 5 days as prescribed. Yesterday morning she started to feel very tired, no fevers/chills that she was aware of, but was found to be febrile in ER to 102.1. She denies nausea, vomiting, diarrhea. Last BM was yesterday. Denies blood in stool or dark stool. Denies cough, sputum production. She has thrush for which she uses magic mouthwash. She was having abdominal pain earlier, it has since resolved. She also has indigestion which causes a tightness in her chest at times, improves with burping. Patient denies any fevers/complications with prior rounds of chemotherapy. Her daughter is with her at bedside. 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, Breast reduction HEENT: reports: Tonsil/Adenoidectomy - Family & Social History Living Situation: With friend(s) Meds/Allgy - Home Medications Home Medications: Ambulatory Orders Medication Instructions Recorded Confirmed Omeprazole 20 mg PO TID 08/20/23 09/04/23 Valacyclovir HCl [Valtrex] 1,000 mg PO DAILY 08/20/23 09/04/23 Magic Mouthwash 1 each PO TID 08/21/23 09/04/23 allopurinoL [Allopurinol] 300 mg PO DAILY 08/21/23 09/04/23 amLODIPine [Norvasc] 10 mg PO DAILY 08/21/23 09/04/23 levoFLOXacin [Levaquin] 500 mg PO ONCE 10 Days #20 tablet 07/03/24 07/03/24 predniSONE [Prednisone] 100 mg PO 09/12/23 Acyclovir 400 mg PO BID 30 Days #60 tablet 09/18/23 Prochlorperazine [Compazine] 10 mg PO Q6H 10 Days #30 tablet 09/18/23 - Allergies Allergies/Adverse Reactions: Allergies Allergy/AdvReac Type Severity Reaction Status Date / Time Sulfa (Sulfonamide Allergy Anaphylaxis Verified 09/24/23 20:26 Antibiotics) Exam - Vital Signs Reviewed Vital Signs: Yes Vital Signs: Vital Signs x48h Temp Pulse Resp BP Pulse Ox 09/25/23 02:00 36 C L 81 17 128/70 97 09/25/23 01:30 36.2 C L 84 16 122/63 98 09/25/23 00:00 36.2 C L 79 16 122/63 98 09/24/23 23:30 36 C L 117 H 18 112/70 98 09/24/23 23:00 36 C L 84 16 123/68 98 09/24/23 22:30 36.8 C 88 16 107/63 92 09/24/23 22:28 88 16 109/54 L 93 09/24/23 21:58 87 19 122/67 94 09/24/23 20:58 36.9 C 95 16 138/64 H 99 09/24/23 20:21 38.0 C H 115 H 18 147/71 H 99 - Physical Exam General Appearance: positive: No acute distress, Alert Respiratory: positive: No respiratory distress Skin: positive: Color nml, No rash Neurologic/Psychiatric: positive: Oriented x3, Mood/affect nml Sepsis Event Note (H) - Evaluation Current Stage of Sepsis: Sepsis Possible source of Sepsis: positive: Unknown - Sepsis Criteria Sepsis Criteria: Recorded Heart Rate greater than 90 bpm, WBC count greater than 12,000 or less than 4000 Conclusion/Plan - Lab Results Lab results reviewed: Yes Fish Bones: 09/24/23 20:43 09/24/23 20:43 - Diagnostic Imaging Results Diagnostic Imaging Results: positive: Final report reviewed - Other Other Results/Comments: Assessment/Plan Sepsis Neutropenic fever -Patient meets sepsis criteria with leukopenia/tachycardia at admission -T 38 at admission -WBC 0.2, neutrophils 0 -Continue IV Zosyn -Follow up blood cultures -Lactic 0.6 -CXR no evidence of consolidation/infiltrate, UA neg -Patient denies cough, sputum production, nausea/vomiting/diarrhea -Antipyretics PRN -Neutropenia precautions Anemia, acute on chronic, secondary to chemotherapy -Baseline Hgb ~8.5, now down to 7.3 s/p chemotherapy -No signs of acute blood loss -Monitor H&H and transfuse for Hgb < 7 T cell lymphoma -S/p CHOP #3 on 09/17 -ER provider has notified grease monkey oncologist, touch base with patient's primary oncologist in a.m. -Continue chemotherapy prophylaxis Acyclovir (patient confirmed not taking Valacyclovir), Allopurinol Oral thrush -Continue magic mouthwash -Consider nystatin swish/swallow pending provider physical exam in a.m. GERD -Continue omeprazole TID (home dose) -GI cocktail PRN Full code DVT ppx: SCDs (anemia) Core Measures - Anticipated LOS I expect patient to be DC'd or transferred within 96 hours.: Yes - DVT/VTE - Prophylaxis VTE/DVT Device ordered at admit?: Yes Telemedicine Consult Details - Provider Location & Consult Time Telemedicine consultation conducted via videoconferencing?: Yes List names and roles of persons who participated in consult:: patient, her daughter, Telemedicine provider location:: [place], [place]
[2023-09-25] MEDS: SODIUM CHLORIDE 0.9% 1,000 ML IV SCH (03:25)
[2023-09-25] MEDS ORDERED: MAGIC MOUTHWASH 120 ML BOTTLE PO PRN (05:53)
[2023-09-25] MEDS ORDERED: NON FORMULARY MED (Omeprazole [Omeprazole] 20 MG Tablet.Dr) PO SCH (06:00)
[2023-09-25] MEDS ORDERED: MAGIC MOUTHWASH 120 ML BOTTLE PO SCH (06:00)
[2023-09-25] MEDS: PANTOPRAZOLE 40 MG TABLET PO SCH ×2 (06:55→16:28)
[2023-09-25] MEDS ORDERED: VALACYCLOVIR HCL 1000 MG PO SCH (09:00)
[2023-09-25] MEDS: PIPERACILLIN/TAZOBACTAM 3.375 GM in SODIUM CHLORIDE 0.9% MINIBAG 100 ML IV SCH (09:46)
[2023-09-25] MEDS: allopurinoL 100 MG TABLET PO SCH (09:46)
[2023-09-25] MEDS: SODIUM CHLORIDE FLUSH 0.9% 10 ML SYRINGE IVP SCH (09:47)
[2023-09-25] MEDS: amLODIPine 5 MG TABLET PO SCH (09:47)
[2023-09-25] MEDS: ACYCLOVIR 200 MG CAPSULE PO SCH (09:47)
[2023-09-25] MEDS: ACETAMINOPHEN 325 MG TABLET PO PRN (09:51)
[2023-09-25] MEDS: GI COCKTAIL 120 ML BOTTLE PO PRN (11:06)
[2023-09-25] MEDS ORDERED: oxyCODONE 5 MG TABLET PO PRN (11:25)
--- NOTE | 2023-09-25 11:31 | PROVIDER PROGRESS NOTE ---
Progress Note September 25, 2023 11:30 AM She is miserable with right shoulder pain. States that it started about a week ago. Hurts to move it. Hurts to lay on it. No history of trauma. No history of new repetitive movement such as pulling weeds or cleaning a window or cleaning the floor. She is on empiric antibiotics for her neutropenic fever. Temperature was 38 in the emergency room. Since then she has defervesced. This morning she is 37.7. Mouth is dry and painful from mucositis. She denies cough, congestion, shortness of breath. Active Medications Acetaminophen (Acetaminophen 325 Mg Tablet) 650 mg PO Q4HR PRN PRN Reason: Pain 1 to 4, or Fever Last Admin: 09/25/23 09:51 Dose: 650 mg Acyclovir (Acyclovir 200 Mg Capsule) 400 mg PO BID JARED Last Admin: 09/25/23 09:47 Dose: 400 mg Allopurinol (Allopurinol 100 Mg Tablet) 300 mg PO DAILY JARED Last Admin: 09/25/23 09:46 Dose: 300 mg Amlodipine Besylate (Amlodipine 5 Mg Tablet) 10 mg PO DAILY JARED Last Admin: 09/25/23 09:47 Dose: 10 mg Piperacillin Sod/Tazobactam (Sod 3.375 gm/ Sodium Chloride) 100 mls @ 200 mls/hr IV ONCE JARED Stop: 09/26/23 07:59 Last Admin: 09/25/23 09:46 Dose: 200 mls/hr Sodium Chloride (Normal Saline 0.9%) 1,000 mls @ 100 mls/hr IV .Q10H JARED Last Admin: 09/25/23 03:25 Dose: 100 mls/hr Multi-Ingredient Mouthwash/Gargle (Gi Cocktail 120 Ml Bottle) 30 ml PO Q4H PRN PRN Reason: Abdominal Pain Last Admin: 09/25/23 11:06 Dose: 30 ml Nystatin (Nystatin 670843 Units/5 Ml Udc) 5 ml PO QID JARED Oxycodone HCl (Oxycodone 5 Mg Tablet) 5 mg PO Q4HR PRN PRN Reason: Moderate Pain (Level 4-6) Pantoprazole Sodium (Pantoprazole 40 Mg Tablet) 40 mg PO BIDAC JARED Prochlorperazine Maleate (Prochlorperazine 5 Mg Tablet) 10 mg PO Q6H PRN PRN Reason: Nausea / Vomiting Sodium Chloride (Sodium Chloride Flush 0.9% 10 Ml Syringe) 10 ml IVP PRN PRN PRN Reason: NEEDED PER PROVIDER ORDERS Sodium Chloride (Sodium Chloride Flush 0.9% 10 Ml Syringe) 10 ml IVP 0100,0900,1700 JARED Last Admin: 09/25/23 09:47 Dose: 10 ml Home Meds: Omeprazole 20 mg PO TID 08/20/23 Valacyclovir HCl [Valtrex] 1,000 mg PO DAILY 08/20/23 Magic Mouthwash 1 each PO TID 08/21/23 allopurinoL [Allopurinol] 300 mg PO DAILY 08/21/23 amLODIPine [Norvasc] 10 mg PO DAILY 08/21/23 predniSONE [Prednisone] 100 mg PO 09/12/23 Benzonatate [Tessalon] 100 mg PO TID 09/25/23 Ondansetron [Ondansetron Odt] 8 mg PO Q12H PRN 09/25/23 Exam: Temperature is 37 7, heart rate 95, blood pressure 143/63, respirations 18, 93% on room air On general examination she is a female who looks much older than stated age, dry oral mucosa, grimacing with pain and tearful. Lethargic, and slow to arouse but is appropriately oriented to person, place, time and situation. Mouth has diffuse mucositis Neck has shotty adenopathy but no bruits Lungs have slow, shallow, unlabored respiration with diminished breath sounds at the bases. The port site is not fluctuent. No redness, heat or pain. Regular rate and rhythm Abdomen is soft, nontender with hypoactive bowel sounds and no masses Extremities have no edema. Joint exam of the right shoulder does not have any bogginess, effusions, warmth, or effusion. But exquisitely tender with just palpation of the entire bursa. She cannot abduct or adduct without pain. She cannot pronate or supinate arm without pain. She is tearful with examination of the joint. Lab: 845 labs last night showed a relatively normal CMP with the bilirubin is slightly elevated at 1.4. Lactic acid 0.6. Last night's white cell count was 0.2. Neutrophils were 0 and lymphocytes were 0.2. Hemoglobin 7.3. Hematocrit 22.9. Review of previous CBCs show her hemoglobin to be normal in May 2020. In June 2023 she was 10.2. She has been gradually drifting down to today 7.3. Viral panel positive for enterovirus/rhinovirus. She does not give any symptoms or complaints of URI Blood cultures have been received and are pending. Currently not positive. Assessment/Plan: 1. Sepsis with Neutropenic fever -Patient meets sepsis criteria with leukopenia/tachycardia/fever at admission. Those criteria have resolved. -T 38 at admission but afebrile after abx. -WBC 0.2, neutrophils 0 . I will recheck today's CBC and have ordered labs for today and tomorrow. -Continue IV Zosyn, Day #1 today (started at 9 pm last night). I will adjust if cultures indicate a pathogen. -Follow up blood cultures when available -Continue tylenol for fever - plan for stopping abx once no fever for 48 hours and ANC > 500 . If I find a source for infection, standard duration of tx will ensue. 2. New R shoulder pain. In looking for a source of infection in this immunocompromised, neutropenic female it could be the mucositis or the shoulder since CXR, UA and abd exam are noncontributory for a source. I will check shoulder films. I will add oxycodone 5 mg po q6h prn pain 3. Anemia, acute on chronic, secondary to chemotherapy -Baseline Hgb ~8.5, now down to 7.3 s/p chemotherapy -No signs of acute blood loss -Monitor H&H and transfuse for Hgb < 7 4. T cell lymphoma -S/p CHOP #3 on 09/17 -I called her oncologist, Dr. Mitch Fountain with [facility], and he was just going into a room so I left my number for him to call me back. -Continue chemotherapy prophylaxis Acyclovir (patient confirmed not taking Valacyclovir), Allopurinol 5. Oral thrush -Continue magic mouthwash -with exam showing a raw mouth that is painful, I will add nystatin swish and spit qid 6. GERD - omeprazole TID (home dose) ordered but that is not on formulary, i will switch to protonix IVP -GI cocktail PRN
--- NOTE | 2023-09-25 11:38 | PHARMACY PROGRESS NOTE ---
- Best Possible Medication History Admit Date and Time: 09/25/23 0242 Processed by: Pharmacy Medications reviewed in ED?: Yes Medication History completed: Yes Patient Interview: Completed Secondary Source(s): Pharmacy records, Insurance records As the person ultimately responsible for medication therapy, providers are able to order a medication from an existing home medication list in [facility] via the "Reconcile Routine" prior to Confirmation of that medication by shipping support clerk. Such practice is discouraged except when the physician, in their clinical judgment, deems that a medical need exists for a medication without regard to previous use.
--- NOTE | 2023-09-25 12:06 | XRAY Report ---
PROCEDURE: Shoulder 2+V RT INDICATIONS: severe pain, neutropenia, fever TECHNIQUE: 3 views of the shoulder were acquired. COMPARISON: Chest radiograph on September 24, 2023. FINDINGS: Bones: No fractures or dislocations. Normal glenohumeral alignment. Mild acromioclavicular joint spa ce narrowing and juxta-articular osteophytosis. No suspicious bony lesions. Visualized ribs appear i ntact. Soft tissues: No suspicious soft tissue calcifications. Subtle patchy consolidation in the right joseph g base. Right-sided port tip terminates in the upper SVC. Clip in the right axilla. IMPRESSION: 1.No acute bony abnormality. 2.Mild acromioclavicular joint osteoarthritis. 3.Subtle patchy consolidation in the right lung base which may represent atelectasis, aspiration and/ or pneumonia. Reviewed by: Jona Garcia MD on 09/25/2023 12:04 PM PDT Approved by: Jona Garcia MD on 09/25/2023 12:04 PM PDT Station ID: [id number]
[2023-09-25 12:26] LABS: EOSINOPHILS % (AUTO) 13.3 %; LYMPHOCYTES % (AUTO) 73.4 %; MEAN CORPUSCULAR HEMOGLOBIN 27.6 pg (27.0-31.0); MEAN CORPUSCULAR HGB CONC 31.9 g/dL (32.0-36.0); MEAN CORPUSCULAR VOLUME 86.4 fL (81.0-99.0); MEAN PLATELET VOLUME 9.3 fL (7.9-10.8); MONOCYTES % (AUTO) 13.3 %; PLT - PLATELET COUNT 152 10^3/uL (130-450); RED BLOOD COUNT 2.14 10^6/uL (4.20-5.40); RED CELL DISTRIBUTION WIDTH 18.7 % (12.0-15.0)
[2023-09-25 12:34] LABS: HCT - HEMATOCRIT 18.5 % (37.0-47.0); HGB - HEMOGLOBIN 5.9 g/dL (12.0-16.0); WHITE BLOOD COUNT 0.2 x10^3/uL (4.8-10.8)
[2023-09-25 12:56] LABS: ABNORMAL LYMPHS % (MANUAL) 0 %; BAND NEUTROPHILS % (MANUAL) 0 %; LYMPHOCYTES # (MANUAL) 0.2 10^3/uL (1.5-3.5); LYMPHOCYTES % (MANUAL) 76 %
[2023-09-25 12:57] LABS: DIFFERENTIAL COMMENT MANUAL DIFFERENTIAL; PLATELET ESTIMATE, MANUAL NORMAL (130-450,000) (NORMAL); PLATELET MORPHOLOGY NORMAL APPEARANCE (NORMAL)
[2023-09-25] MEDS: NYSTATIN 500000 UNITS/5 ML UDC PO SCH (14:41)
[2023-09-25] MEDS: PROCHLORPERAZINE 5 MG TABLET PO PRN (16:28)
[2023-09-25] MEDS ORDERED: SALIVA STIMULANT SPRAY 44.3 ML BOTTLE PO PRN (16:40)
[2023-09-26 07:57] LABS: EOSINOPHILS % (AUTO) 7.7 %; HCT - HEMATOCRIT 24.8 % (37.0-47.0); HGB - HEMOGLOBIN 8.4 g/dL (12.0-16.0); LYMPHOCYTES % (AUTO) 53.8 %; MEAN CORPUSCULAR HEMOGLOBIN 27.7 pg (27.0-31.0); MEAN CORPUSCULAR HGB CONC 33.9 g/dL (32.0-36.0); MEAN CORPUSCULAR VOLUME 81.8 fL (81.0-99.0); MEAN PLATELET VOLUME 9.1 fL (7.9-10.8); MONOCYTES % (AUTO) 23.1 %; NEUTROPHILS % (AUTO) 15.4 %; PLT - PLATELET COUNT 134 10^3/uL (130-450); RED BLOOD COUNT 3.03 10^6/uL (4.20-5.40); RED CELL DISTRIBUTION WIDTH 16.9 % (12.0-15.0)
[2023-09-26 08:03] LABS: WHITE BLOOD COUNT 0.3 x10^3/uL (4.8-10.8)
[2023-09-26 08:04] LABS: ABNORMAL LYMPHS % (MANUAL) 0 %
[2023-09-26 08:15] LABS: BAND NEUTROPHILS % (MANUAL) 4 %; DIFFERENTIAL COMMENT MANUAL DIFFERENTIAL; LYMPHOCYTES # (MANUAL) 0.2 10^3/uL (1.5-3.5); LYMPHOCYTES % (MANUAL) 56 %; MONOCYTES # (MANUAL) 0.1 10^3/uL (0.0-1.0); PLATELET ESTIMATE, MANUAL NORMAL (130-450,000) (NORMAL); PLATELET MORPHOLOGY NORMAL APPEARANCE (NORMAL); REACTIVE LYMPHS % (MANUAL) 8 %
--- NOTE | 2023-09-26 16:56 | PROVIDER PROGRESS NOTE ---
Progress Note September 26, 2023 5:25 PM A remarkable turnaround from yesterday to today. This morning she was asleep, snoring, so I left her alone. Went to recheck upon her this afternoon and she is sitting up in bed, smiling, joking with the nurse, and watching TV. Yesterday she was miserable with lethargy, diffuse arthralgias and myalgias, shoulder pain and was very tearful and sedated. She still does not have an appetite. Mouth is much improved. She denies cough, chest pain, shortness of breath, or belly pain. No urgency, frequency or dysuria. She does not know what happened but her shoulder stopped hurting. Active Medications Acetaminophen (Acetaminophen 325 Mg Tablet) 650 mg PO Q4HR PRN PRN Reason: Pain 1 to 4, or Fever Last Admin: 09/26/23 12:18 Dose: 650 mg Acyclovir (Acyclovir 200 Mg Capsule) 400 mg PO BID [facility] Last Admin: 09/26/23 08:25 Dose: 400 mg Allopurinol (Allopurinol 100 Mg Tablet) 300 mg PO DAILY [facility] Last Admin: 09/26/23 08:25 Dose: 300 mg Amlodipine Besylate (Amlodipine 5 Mg Tablet) 10 mg PO DAILY [facility] Last Admin: 09/26/23 08:25 Dose: 10 mg Heparin Sodium (Beef Lung) (Heparin Flush 500 Units/5 Ml Syringe) 300 - 500 unit IVP PRN PRN PRN Reason: Port Protocol (>24 hours) Heparin Sodium (Beef Lung) (Heparin Flush 50 Units/5 Ml Syringe) 30 - 50 unit IVP PRN PRN PRN Reason: Port Protocol (<24 hours) Sodium Chloride (Normal Saline 0.9%) 1,000 mls @ 100 mls/hr IV .Q10H [facility] Last Admin: 09/26/23 13:29 Dose: 100 mls/hr Multi-Ingredient Mouthwash/Gargle (Gi Cocktail 120 Ml Bottle) 30 ml PO Q4H PRN PRN Reason: Abdominal Pain Last Admin: 09/25/23 11:06 Dose: 30 ml Oxycodone HCl (Oxycodone 5 Mg Tablet) 5 mg PO Q4HR PRN PRN Reason: Moderate Pain (Level 4-6) Pantoprazole Sodium (Pantoprazole 40 Mg Tablet) 40 mg PO BIDAC [facility] Last Admin: 09/26/23 07:35 Dose: 40 mg Prochlorperazine Maleate (Prochlorperazine 5 Mg Tablet) 10 mg PO Q6H PRN PRN Reason: Nausea / Vomiting Last Admin: 09/25/23 16:28 Dose: 10 mg Saliva Substitute (Saliva Stimulant [place] 44.3 Ml Bottle) 2 sprays PO Q4H PRN PRN Reason: Mouth Sore Pain Sodium Chloride (Sodium Chloride Flush 0.9% 10 Ml Syringe) 10 ml IVP PRN PRN PRN Reason: NEEDED PER PROVIDER ORDERS Sodium Chloride (Sodium Chloride Flush 0.9% 10 Ml Syringe) 10 ml IVP 0100,0900,1700 [facility] Last Admin: 09/26/23 09:26 Dose: Not Given Exam: Omeprazole 20 mg PO BID 08/20/23 Magic Mouthwash 1 each PO TID PRN 08/21/23 allopurinoL [Allopurinol] 300 mg PO DAILY 08/21/23 amLODIPine [Norvasc] 10 mg PO DAILY 08/21/23 predniSONE [Prednisone] 100 mg PO UD 09/12/23 Benzonatate [Tessalon] 100 mg PO TID 09/25/23 Ondansetron [Ondansetron Odt] 8 mg PO Q12H PRN 09/25/23 Exam: Temperature 36.7. Heart rate 81. Blood pressure 133/68. Respirations 20. 96% on room air. Other than a temperature of 38 on September 23 at 8:21 PM, she has not had any further temperature spikes. Cheerful, alert, sitting up in bed. Eyes bright. Speech normal. Conversation normal. Pale, alopecia, fatigued appearing but much, much more alert than yesterday. Neck is supple. Shotty adenopathy. Lungs are clear to auscultation and percussion and she does not have any increased respiratory effort, cough, rhonchi, wheezing. Regular rate and rhythm without any murmur. Again the port site is clean, without bogginess, redness or effusion. Abdomen is soft, nontender, no hepatosplenomegaly Extremities are without edema. The right shoulder is no longer pinpoint tender. There is no effusion, no redness, no heat. Lab: White cell count 0.3. 4% bands. 8% reactive lymphocytes. On manual count 0 neutrophils. 0.2 lymphocytes. She is still neutropenic below an ANC of 500. Blood cultures negative after 1 day Assessment/Plan: 1. Sepsis with Neutropenic fever -Patient meets sepsis criteria with leukopenia/tachycardia/fever at admission. Those criteria have resolved. -T 38 at admission but afebrile after abx. -WBC 0.3 today. -Continue IV Zosyn, Day #2 today. -Continue tylenol for fever - plan for stopping abx once no fever for 48 hours and ANC > 500 . If I find a source for infection, standard duration of tx will ensue. - Dr. Fountain from Oncology stated that he wants her on a total of 14 days of antibiotics. So when I discharge her to discharge her on Cipro oral. 2. New R shoulder pain resolved. Unclear why she hurt yesterday. But her plain films were negative. I discussed the case with orthopedics and they felt that with negative plain films, and resolution of pain, we did not need to do much else. Because she did not have an effusion by my exam, she was not a candidate for arthrocentesis. 3. Anemia, acute on chronic, secondary to chemotherapy Yesterday afternoon, after I dictated my note, repeat CBC showed hemoglobin of 5.9. I transfused her 2 units of packed irradiated cells. She is 8.4 g of hemoglobin today. The pancytopenia is attributed to her chemotherapy. Not acute blood loss. Plan: Continue to monitor daily CBC and transfuse as needed. 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 Fountain from Oncology did call me back. He tells me that this is a palliative treatment. Not a good prognosis with regards to care. But if she does do well with CHOP she may be candidate for consolidative treatment and stem cell transplant. He is worried that she will continue to seek her care with him at the [facility]. He says logistically it is very tiring for her. She should consider transferring her care to the oncologist that is coming to our local clinic here in the hospital. But the patient tells me that she really likes Dr. Fountain and will most likely make the effort to get to the [facility]. -Continue chemotherapy prophylaxis Acyclovir (patient confirmed not taking Valacyclovir), Allopurinol - Advanced care planning conversation held today. Please see separate note with separate dictation. 5. Oral thrush -Continue magic mouthwash -with exam showing a raw mouth that is painful, I had added nystatin swish and spit qid Yesterday. However today she says she just does not want it. The Magic mouthwash is enough for her and she is asked me to discontinue the nystatin. 6. GERD - omeprazole TID (home dose) ordered but that is not on formulary, And I switched it to Protonix IV push. -GI cocktail PRN
--- NOTE | 2023-09-26 17:03 | ADVANCE CARE PLANNING NOTE ---
Advance Care Planning - Planning Encounter Date: 09/26/23 Time: 16:56 Purpose: establish code status and discuss goals of care Parties in Attendance: hospsitalist, patient and her RN, Tommy Ramos Decisional Capacity of the Patient: Alert and oriented to person, place, time and situation. 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 She regarded herself as healthy. And then approximately in June 2022, around the time of her brother's , she just started not feeling well. She shared her complaints of fatigue, decreased endurance with her primary care provider. Preliminary blood work was negative and she attributed to the stress of her brother dying. And then having to take care of her father. Her father then a few months shortly thereafter. She then developed a urinary tract infection and was treated. In the midst of the urinary tract infection treatment she had agonizing back pain. From there the diagnosis subsequently came back as T-cell lymphoma. She has now undergone 3 cycles of 6 cycles of CHOP. She has been told that this is probably not going to be cured. She is followed by Mitch Fountain MD at [facility]. That this actually may be more of a palliative attempt than a curative intent. She had already been seen at [facility] for possible experimental protocol but there were 3 arms to a protocol that she was being processed for. Arm 1 was treatment, arm 2 was treatment with a different drug, and arm 3 was no treatment. She was pretty sure that she was in treatment arm 3 and, as such, thought "what is the point?". And took her self out of the protocol and started traditional treatment with [facility] oncology. She is hoping that if this CHOP cycle treatment is successful that she will be able to undergo consolidative treatment and then a subsequent stem cell transplant. She knows that the odds are against her but she is a nondenominational person who believes that God "will cure me". She wants to make clear that she is a DO NOT RESUSCITATE. While she does want treatment done for pneumonia, infection, blood transfusions, etc. she does not want to be kept alive if she has no pulse or pressure. She is willing to undergo aggressive therapy such as ICU stays, pressors, and even BiPAP. But she does not want to be intubated. She never wants to be receiving CPR. She has already made this decision independent of a discussion with her DURABLE POWER OF NEUROLOGICAL PHYSIOTHERAPIST, her son, Cory Petersen ([phone]). She has not told him about her decision. Her daughter Fang ([phone]) lives in [place] and she has not shared this decision with her daughter as well. When I ask about end-of-life care, she says that she knows that she does not want to be a burden to her children. For a very brief moment, she contemplates not even telling them if she is reaching that point at the end of her life. But I told her that is probably not a very good idea. She appears to have a very good relationship with her 3 children. The daughter lives in [place], son lives in [place], and other son lives in [place]. She has been a single mom, , most of their life. She is also considering with dignity. She plans on delaying cycle 6 so that she feels relatively normal for her 50th high school reunion. She will also go to [place] to see her son. the chemo has taken away her appetite and she has tremendous constipation. She hurts all over and her mouth will get raw. So far no neuropathy. She has tremendous fatigue but has not needed any DME at home so far. 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 Patient took her post chemo prednisone/levaquin x 5 days as prescribed. Yesterday morning she started to feel very tired, no fevers/chills that she was aware of, but was found to be febrile in ER to 102.1. She denies nausea, vomiting, diarrhea. Last BM was yesterday. Denies blood in stool or dark stool. Denies cough, sputum production. She has thrush for which she uses magic mouthwash. She was having abdominal pain earlier, it has since resolved. She also has indigestion which causes a tightness in her chest at times, improves with burping. Patient denies any fevers/complications with prior rounds of chemotherapy. Her daughter is with her at bedside. 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 But she is making plans if this does not work. She just has not finalized her plans Plan: 1. POLST form filled out today. I have made several copies for her to take with her. The original will stay in her home and I would like her to give copies to her oncologist, PCP, [facility]. I have kept a copy for our hospital. 2. Sit down and have a conversation with her DURABLE POWER OF NEUROLOGICAL PHYSIOTHERAPIST, and her daughter and other son about her wishes with regards to DO NOT RESUSCITATE. And she should have some idea of what she would like to do if it is at the end of her life. Where does she want to be? Does she want her children taking care of her? And if she is really serious about with dignity, she needs to start that process so when the time comes that is not a last-minute rest event. Code Status: Do Not Attempt Resuscitation Time spent on advance care plannin minutes
--- NOTE | 2023-09-26 17:40 | Discharge Plan ---
Discharge Plan Condition: Stable Instruction Topics: Transp Bone Marrow Stem Cell Dc No Smoking: If you smoke, Please STOP! Call for help.
[2023-09-27 06:51] LABS: BASOPHILS % (AUTO) 3.2 %; EOSINOPHILS % (AUTO) 1.6 %; HCT - HEMATOCRIT 24.6 % (37.0-47.0); HGB - HEMOGLOBIN 8.2 g/dL (12.0-16.0); MEAN CORPUSCULAR HEMOGLOBIN 27.1 pg (27.0-31.0); MEAN CORPUSCULAR HGB CONC 33.3 g/dL (32.0-36.0); MEAN CORPUSCULAR VOLUME 81.2 fL (81.0-99.0); MEAN PLATELET VOLUME 9.4 fL (7.9-10.8); MONOCYTES % (AUTO) 17.5 %; NEUTROPHILS % (AUTO) 49.1 %; PLT - PLATELET COUNT 114 10^3/uL (130-450); RED BLOOD COUNT 3.03 10^6/uL (4.20-5.40); RED CELL DISTRIBUTION WIDTH 17.2 % (12.0-15.0)
[2023-09-27 07:02] LABS: WHITE BLOOD COUNT 0.6 x10^3/uL (4.8-10.8)
[2023-09-27 07:04] LABS: ABNORMAL LYMPHS % (MANUAL) 0 %
[2023-09-27 07:58] LABS: BAND NEUTROPHILS % (MANUAL) 4 %; LYMPHOCYTES # (MANUAL) 0.2 10^3/uL (1.5-3.5); LYMPHOCYTES % (MANUAL) 36 %; NEUTROPHILS # (MANUAL) 0.3 10^3/uL (1.5-6.6)
[2023-09-27 07:59] LABS: DIFFERENTIAL COMMENT MANUAL DIFFERENTIAL; PLATELET ESTIMATE, MANUAL DECREASED (<130,000) (NORMAL); PLATELET MORPHOLOGY NORMAL APPEARANCE (NORMAL); RBC MORPHOLOGY (MULTIPLE) 2+ HYPOCHROMASIA (NORMAL)
--- NOTE | 2023-09-27 15:47 | PROVIDER PROGRESS NOTE ---
Progress Note September 27, 2023 3:45 PM The patient was admitted as very lethargic, listless, tearful and just miserable with diffuse myalgias and arthralgias and right shoulder pain. Yesterday was a remarkable turnaround where she was alert, cheerful, bright eyed and no longer with shoulder pain. She states that the shoulder hurts just a tinge and does not know what made it hurt. And does not know why it went away. She denies cough, congestion, abdominal pain, urgency, frequency, dysuria. She ended up not liking the nystatin for swish and spit and has not taken it since yesterday. She is using the Magic mouthwash instead. Still does not have much appetite but trying to be good about eating. She had asked me to provide her with her daily cell counts. So I have given her a typed up summary of her white cell count and hemoglobin and platelets since admission and where her ANC is slowly coming up. Active Medications Acetaminophen (Acetaminophen 325 Mg Tablet) 650 mg PO Q4HR PRN PRN Reason: Pain 1 to 4, or Fever Last Admin: 09/27/23 00:20 Dose: 650 mg Acyclovir (Acyclovir 200 Mg Capsule) 400 mg PO BID [facility] Last Admin: 09/27/23 08:26 Dose: 400 mg Allopurinol (Allopurinol 100 Mg Tablet) 300 mg PO DAILY [facility] Last Admin: 09/27/23 08:26 Dose: 300 mg Amlodipine Besylate (Amlodipine 5 Mg Tablet) 10 mg PO DAILY [facility] Last Admin: 09/27/23 08:26 Dose: 10 mg Heparin Sodium (Beef Lung) (Heparin Flush 500 Units/5 Ml Syringe) 300 - 500 unit IVP PRN PRN PRN Reason: Port Protocol (>24 hours) Heparin Sodium (Beef Lung) (Heparin Flush 50 Units/5 Ml Syringe) 30 - 50 unit IVP PRN PRN PRN Reason: Port Protocol (<24 hours) Sodium Chloride (Normal Saline 0.9%) 1,000 mls @ 100 mls/hr IV .Q10H [facility] Last Admin: 09/27/23 08:27 Dose: 100 mls/hr Multi-Ingredient Mouthwash/Gargle (Gi Cocktail 120 Ml Bottle) 30 ml PO Q4H PRN PRN Reason: Abdominal Pain Last Admin: 09/25/23 11:06 Dose: 30 ml Oxycodone HCl (Oxycodone 5 Mg Tablet) 5 mg PO Q4HR PRN PRN Reason: Moderate Pain (Level 4-6) Pantoprazole Sodium (Pantoprazole 40 Mg Tablet) 40 mg PO BIDAC [facility] Last Admin: 09/27/23 15:40 Dose: 40 mg Prochlorperazine Maleate (Prochlorperazine 5 Mg Tablet) 10 mg PO Q6H PRN PRN Reason: Nausea / Vomiting Last Admin: 09/25/23 16:28 Dose: 10 mg Saliva Substitute (Saliva Stimulant [place] 44.3 Ml Bottle) 2 sprays PO Q4H PRN PRN Reason: Mouth Sore Pain Sodium Chloride (Sodium Chloride Flush 0.9% 10 Ml Syringe) 10 ml IVP PRN PRN PRN Reason: NEEDED PER PROVIDER ORDERS Sodium Chloride (Sodium Chloride Flush 0.9% 10 Ml Syringe) 10 ml IVP 0100,0900,1700 [facility] Last Admin: 09/27/23 15:41 Dose: Not Given Home meds: Omeprazole 20 mg PO BID 08/20/23 Magic Mouthwash 1 each PO TID PRN 08/21/23 allopurinoL [Allopurinol] 300 mg PO DAILY 08/21/23 amLODIPine [Norvasc] 10 mg PO DAILY 08/21/23 predniSONE [Prednisone] 100 mg PO UD 09/12/23 Benzonatate [Tessalon] 100 mg PO TID 09/25/23 Ondansetron [Ondansetron Odt] 8 mg PO Q12H PRN 09/25/23 Exam: Temperature is 37.1, heart rate 96, blood pressure 146/74, respirations 18, 96% on room air. 2 out of 10 pain along her jawline in the afternoon and 1 out of 10 pain in her right shoulder. Shotty neck adenopathy but no bruits, no stiffness. Mouth has no thrush and tongue appears with flat Ariela. Clear lungs Regular rate and rhythm without a murmur Abdomen is soft, nontender and normal bowel sounds Extremities without edema. Skin is again examined and the port site is clean closed without bogginess. She does have telangiectasia on top of the right shoulder. But no sacral wounds, decubitus wounds. No heel ulcers. No bruising. Neurologically she is alert and oriented to person, place, time and situation. Normal speech rhythm. Normal conversationalist. No focal deficits. Moving all extremities spontaneously. Eating her breakfast on her own. Asking for her food to be heated up. Lab: Total white cell count is 0.6. Neutrophils are 0.3. Lymphocytes are 0.2. Platelets have come down unexpectedly. On admission she was 214 and she has been gradually drifting down. Today she is 114. Hemoglobin is staying stable at 8.2 where she was 8.4 yesterday after 2 units of packed cells Assessment/Plan: 1. Sepsis with Neutropenic fever -Patient meets sepsis criteria with leukopenia/tachycardia/fever at admission. Those criteria have resolved. -T 38 at admission but afebrile after abx. -WBC 0.6 today. - On Zosyn the first 2 days. There was an automatic stop put in by the telehospitalist so she did not get Zosyn yesterday. -Continue tylenol for fever - I will start oral Cipro. Discharge when ANC greater than 500. - Dr. Fountain from Oncology stated that he wants her on a total of 14 days of antibiotics. So when I discharge her to discharge her on Cipro oral. 2. New R shoulder pain resolved. Unclear why she hurt . But her plain films were negative. I discussed the case with orthopedics and they felt that with negative plain films, and resolution of pain, we did not need to do much else. Because she did not have an effusion by my exam, she was not a candidate for arthrocentesis. Yesterday and today the pain is minimal. And she demonstrates by doing full range of motion in her shoulder without difficulty. 3. Anemia, acute on chronic, secondary to chemotherapy Yesterday afternoon, after I dictated my note, repeat CBC showed hemoglobin of 5.9. I transfused her 2 units of packed irradiated cells. She is 8.4 g of hemoglobin after that transfusion. Today she is 8.2 and doesn't need more PRBC. The pancytopenia is attributed to her chemotherapy. Not acute blood loss. Plan: Continue to monitor daily CBC and transfuse as needed. 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 Fountain from Oncology did call me back. He tells me that this is a palliative treatment. Not a good prognosis with regards to care. But if she does do well with CHOP she may be candidate for consolidative treatment and stem cell transplant. He is worried that she will continue to seek her care with him at the [facility]. He says logistically it is very tiring for her. She should consider transferring her care to the oncologist that is coming to our local clinic here in the hospital. But the patient tells me that she really likes Dr. Fountain and will most likely make the effort to get to the [facility]. -Continue chemotherapy prophylaxis Acyclovir (patient confirmed not taking Valacyclovir), Allopurinol - Advanced care planning conversation held today. Please see separate note with separate dictation. 5. Oral thrush -Continue magic mouthwash -with exam showing a raw mouth that is painful, I had added nystatin swish and spit qid . However the next day, she says she just does not want it. The Magic mouthwash is enough for her and she is asked me to discontinue the nystatin. 6. GERD - omeprazole TID (home dose) ordered but that is not on formulary, And I switched it to Protonix IV push. -GI cocktail PRN
[2023-09-27] MEDS ORDERED: SIMETHICONE 40 MG/0.6 ML 30 ML BOTTLE PO PRN (16:03)
[2023-09-27] MEDS: SIMETHICONE CHEW 80 MG TABLET PO PRN (16:52)
[2023-09-27] MEDS: guaiFENesin 600 MG TABLET PO SCH (22:14)
[2023-09-28 05:47] LABS: BASOPHILS % (AUTO) 1.8 %; EOSINOPHILS % (AUTO) 0.9 %; HGB - HEMOGLOBIN 7.8 g/dL (12.0-16.0); LYMPHOCYTES % (AUTO) 12.6 %; MEAN CORPUSCULAR HEMOGLOBIN 27.7 pg (27.0-31.0); MEAN CORPUSCULAR HGB CONC 33.9 g/dL (32.0-36.0); MEAN CORPUSCULAR VOLUME 81.6 fL (81.0-99.0); MEAN PLATELET VOLUME 9.6 fL (7.9-10.8); MONOCYTES % (AUTO) 13.5 %; NEUTROPHILS % (AUTO) 66.7 %; PLT - PLATELET COUNT 112 10^3/uL (130-450); RED BLOOD COUNT 2.82 10^6/uL (4.20-5.40); RED CELL DISTRIBUTION WIDTH 17.1 % (12.0-15.0)
[2023-09-28 06:41] LABS: SLIDE REVIEW? Indicated
[2023-09-28 06:42] LABS: ABNORMAL LYMPHS % (MANUAL) 0 %
[2023-09-28 07:12] LABS: BAND NEUTROPHILS % (MANUAL) 18 %; LYMPHOCYTES % (MANUAL) 27 %; METAMYELOCYTES % (MANUAL) 2 %; MONOCYTES # (MANUAL) 0.1 10^3/uL (0.0-1.0)
[2023-09-28 07:14] LABS: PLATELET ESTIMATE, MANUAL DECREASED (<130,000) (NORMAL); PLATELET MORPHOLOGY NORMAL APPEARANCE (NORMAL); WBC MORPHOLOGY (MULTIPLE) NORMAL APPEARANCE (NORMAL)
[2023-09-28 07:17] LABS: LYMPHOCYTES # (MANUAL) 0.3 10^3/uL (1.5-3.5); WHITE BLOOD COUNT 1.1 x10^3/uL (4.8-10.8)
--- NOTE | 2023-09-28 07:51 | Discharge Plan ---
Discharge Plan Problem Reviewed?: Yes Disposition: Home, Self Care Condition: Stable Prescriptions: Ciprofloxacin [Cipro] 500 mg PO Q12H 10 Days #40 tablet Diet: Regular Activity Restrictions: Activity as Tolerated Shower Restrictions: No Driving Restrictions: No Instruction Topics: Transp Bone Marrow Stem Cell Dc Health Concerns: you are undergoing chemotherapy for T-cell lymphoma and have just completed your third cycle of 6 cycles. You know that your bone marrow gets very suppressed with this so your white cells, red cells and platelets stop being produced by your bone marrow and you develop a condition called neutropenia. That means that your white cell count gets very low. When your white cell gets below 500, you could be at risk for severe infection. So when you have fever, it is an urgent condition that needs to be treated. You came to the hospital with symptoms of neutropenic fever. We look for source of infection. We did a chest x-ray, urinalysis, abdominal CT and found no source for your fever. You did have severe right shoulder pain but that went away as quickly as it came. The x-ray of your shoulder was negative. We treated you with empiric antibiotic therapy for neutropenic fever. The goal is to give the patient antibiotics until the fever goes away for 48 hours and then her white cell count becomes above 500. You have now reached those goals and can go home. I did speak to your oncologist while you are here and your oncologist would like you to complete a total of 14 days of antibiotics because of the neutropenic fever. Plan of Treatment: 1. Please see Dr. Fountain in follow-up in the next 1 to 2 weeks. Sure you tell them that you have been developing swallowing issues ever since she started chemotherapy. We do not have upper GI availability here nor do we have a speech therapist. He will need to refer you to those people to make sure you do not have a swallowing difficulty or Mary Ann esophagitis. 2. Please take ciprofloxacin 500 mg twice a day for the next 10 days. I have sent a prescription to [facility] which was designated as your preferred pharmacy. 3. While you were here we discussed planning for the future. You will be sitting down with your family to discuss possible needs for help if you were to continue to get progression in your illness. You also sat down and discussed your resuscitative status and we filled out a POLST form. You have the original. Please make sure you keep it on your refrigerator door. Care Goals: Would like to see response to treatment from your chemotherapy. If you do respond well, the neck step would be consolidative therapy with a bone marrow tr ansplant. That is your current goal Assessment: patient is alert, oriented to person, place, time and situation No Smoking: If you smoke, Please STOP! Call for help. Follow-up with: ANANT MCKNIGHT PA-C [Primary Care Provider] -
[2023-09-28 08:05] VITALS: BP 139/76; O2SAT 97
[2023-09-28 08:25] LABS: NEUTROPHILS # (MANUAL) 0.7 10^3/uL (1.5-6.6)
--- NOTE | 2023-09-28 08:47 | DISCHARGE SUMMARY ---
"Discharge Summary Admit Date: 09/25/23 Discharge Date: 09/28/23 Discharging Provider: Suad Glover MD Primary Care Provider: Mitch Fountain MD and Nisha Souza Code Status: Do Not Attempt Resuscitation Condition at Discharge: Stable Discharge Disposition: 01 Home, Self Care - DIAGNOSES Discharge Diagnoses with Status of Each Condition: 1. Sepsis 2. Neutropenic fever 3. Acute right shoulder pain 4. Anemia, acute on chronic secondary to chemotherapy 5. T-cell lymphoma 6. Oral thrush 7. GERD 8. Protein calorie malnutrition that is severe 9. Dysphagia 10. Do not resuscitate status - HPI History of Present Illness: Ms Wright is a 68 yo F with angioimmunoblastic T cell lymphoma, currently undergoing chemotherapy with CHOP - last treatment on 09/18/23, which was her 3rd of 6 treatments. Patient took her post chemo prednisone/levaquin x 5 days as prescribed. Yesterday morning she started to feel very tired, no fevers/chills that she was aware of, but was found to be febrile in ER to 102.1. She denies nausea, vomiting, diarrhea. Last BM was yesterday. Denies blood in stool or dark stool. Denies cough, sputum production. She has thrush for which she uses magic mouthwash. She was having abdominal pain earlier, it has since resolved. She also has indigestion which causes a tightness in her chest at times, improves with burping. Patient denies any fevers/complications with prior rounds of chemotherapy. Her daughter is with her at bedside. 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 No evidence of pneumonia. Shoulder x-ray on the right had no acute bony abnormality. Mild AC joint arthritis. Subtle patchy consolidation in the right lung base possibly representing atelectasis. Blood culture done to the right port negative after 2 days. Blood culture done and peripheral arm negative after 2 days. Viral PCR positive for enterovirus/rhinovirus Urinalysis without abnormalities of infection - HOSPITAL COURSE Hospital Course: Every day review of systems was done to see if we could pinpoint a source for this unfortunate female. She was utterly miserable on the first day of admission with lethargy, and was tearful because of shoulder pain, mucositis, dysphagia. She has Mary Ann mucositis but did not want to take nystatin. She only wanted to take the Magic mouthwash. Empiric antibiotic therapy with Zosyn was continued until 3 days. Although she had a temperature of 38 on admission, she had no further temperatures during her stay. On her third day she woke up and was much, much better. No longer lethargic. Shoulder pain had resolved. She felt like she had just stepped out of a fog. No longer tearful. I did discuss the case with her oncologist, Dr. Fountain, and he asked that she be placed on empiric ciprofloxacin after the Zosyn was completed. He would like her to be on a total of 14 days of antibiotics. Blood cultures were negative. UA was negative. Chest x-ray was negative. Shoulder film was done for the right shoulder pain and negative. I discussed the case with orthopedics to make sure we could not be missing a hematogenous bone infection in a neutropenic patient but he felt that since the plain films were negative we did not need to proceed to MRI. Shoulder pain resolved. During her stay we did have preliminary advance care planning conversations. While she understands that this therapy is palliative and not curative, she is still hoping for cure. They would like to proceed with consolidative therapy and stem cell transplant if she responds to the CHOP therapy. But she did want to be DO NOT RESUSCITATE and as such a POLST form was filled out. Original given to her and a copy For our records. She has not thought much about what would happen if she needed to have care. While she does have 3 loving children, she has not discussed this with them. She does not want to be a burden. I gently suggested that she may have to bring this difficult topic to the forefront in the next few weeks. While I know that she is hoping for a care and a longer life span, it would be prudent to plan for possible notable illness, and lack of ability to take care of herself. The CBC was monitored. She finally achieved an ANC above 500 on the day of discharge. She is to be discharged on Cipro as requested by Dr. Fountain. She has been complaining of dysphagia ever since the chemotherapy started. Still some episodes of belching and reflux that were severe. We do not have speech therapy or ability to do upper GI here. I am requesting that she be seen in the outpatient setting and told her that either her primary care provider or Dr. Fountain can make the referral. Because she has thrush, she may have Mary Ann esophagitis. She is identified as having protein calorie malnutrition with a 34 pound weight loss in the last year. She was seen by nutrition services and counseling was provided with regards to dietary changes she could make, increa sing her calories, etc. At discharge exam was 36.8. Heart rate 84. Blood pressure 139/76. Respir ations 18. 97% on room air. Headache at a 4 out of 10. She is a fatigued appearing 5 foot 4 inch female at 66 kg. She has had severe protein calorie malnutrition with close to a 34 pound weight loss in the last year. She has alopecia. Denuded tongue with flat papillae. . no evidence of white exudate on the mouth. Shotty neck adenopathy. During her swallowing her breakfast she had quite a bit of swallowing of air, spontaneous belching. And an uncomfortable upper esophagus feeling she says. But supple neck. Lungs are clear to auscultation and percussion without respiratory distress. Regular rate and rhythm. And abdomen that is soft, nontender with hypoactive bowel sounds. She is eating anywhere between 25 to 50% of her food. Constipation is a chronic complaint. Extremities are without edema. Skin exam did not show any cellulitis, abscess, and the port site was clear of redness, swelling, fluctuance. Greater than 30 minutes was spent coordinating discharge This document was made in part using voice recognition software. While efforts are made to proofread this document, sound alike and grammatical errors may occur. - ALLERGIES Allergies/Adverse Reactions: Allergies Allergy/AdvReac Type Severity Reaction Status Date / Time Sulfa (Sulfonamide Allergy Anaphylaxis Verified 09/24/23 20:26 Antibiotics) - MEDICATIONS Home Medications: Ambulatory Orders Medication Instructions Recorded Confirmed Omeprazole 20 mg PO BID 08/20/23 09/25/23 Magic Mouthwash 1 each PO TID PRN 08/21/23 09/25/23 allopurinoL [Allopurinol] 300 mg PO DAILY 08/21/23 09/25/23 amLODIPine [Norvasc] 10 mg PO DAILY 08/21/23 09/25/23 predniSONE [Prednisone] 100 mg PO UD 09/12/23 09/25/23 Acyclovir 400 mg PO BID 30 Days #60 tablet 09/18/23 09/25/23 Prochlorperazine [Compazine] 10 mg PO Q6H 10 Days #30 tablet 09/18/23 09/25/23 Benzonatate [Tessalon] 100 mg PO TID 09/25/23 09/25/23 Ondansetron [Ondansetron Odt] 8 mg PO Q12H PRN 09/25/23 09/25/23 Ciprofloxacin [Cipro] 500 mg PO Q12H 10 Days #40 tablet 09/28/23 - LABS Result Diagrams: 09/28/23 05:25 09/24/23 20:43 - SEPSIS Current Stage of Sepsis: Resolved Possible source of Sepsis: Unknown Sepsis Criteria: Recorded Temperature greater than 38.3C or Less than 36C, Recorded Heart Rate greater than 90 bpm, WBC count greater than 12,000 or less than 4000"
== END 2023-09-28 12:17 | disposition home or self-care (01) | DRG 871 ==
LOC: ED 19:46 → MS2 09-25 02:42
PROVIDERS: ADMIT Student in an Organized Health Care Education/Training Program; ATTEND Specialist
PROC: 30233N1 Transfusion of Nonautologous Red Blood Cells into Peripheral Vein, Percutaneous Approach (ICD-10-PCS; principal; 2023-09-25)
DX: A41.9 Sepsis, unspecified organism (principal); E43 Unspecified severe protein-calorie malnutrition; Z20.818 Contact with and (suspected) exposure to other bacterial communicable diseases; Z20.822 Contact with and (suspected) exposure to COVID-19; Z20.828 Contact with and (suspected) exposure to other viral communicable diseases; C86.5 Angioimmunoblastic T-cell lymphoma; B37.0 Candidal stomatitis; D64.81 Anemia due to antineoplastic chemotherapy; T45.1X5A Adverse effect of antineoplastic and immunosuppressive drugs, initial encounter; K21.9 Gastro-esophageal reflux disease without esophagitis; R13.10 Dysphagia, unspecified; M25.511 Pain in right shoulder; K59.09 Other constipation; I10 Essential (primary) hypertension; K12.30 Oral mucositis (ulcerative), unspecified; R63.0 Anorexia; D70.9 Neutropenia, unspecified; R50.81 Fever presenting with conditions classified elsewhere; Z66 Do not resuscitate; Z68.25 Body mass index [BMI] 25.0-25.9, adult; Z71.3 Dietary counseling and surveillance; Z79.899 Other long term (current) drug therapy
CPT/HCPCS: 36415; 71045; 73030; 80053; 81001; 83605; 85025; 86850; 86900; 86901; 86920; 87040; 87633; 96360; 99285; A9270; P9040; 87086

== ENCOUNTER 2023-09-29 18:01 | Emergency (ER) | payer MEDICARE ==
--- NOTE | 2023-09-29 19:58 | ED Physician Documentation ---
History of Present Illness - Stated complaint Stated Complaint: FEVER - Chief complaint Chief Complaint: Fever - History obtained from History obtained from: Patient, Family - History of Present Illness Timing: Today - Additonal information Additional information: 68-year-old Piedad Wright presents to the emergency department today with a low-grade fever without other other specific symptoms. She was discharged from the hospital yesterday at 2 PM after a 3-day stay for neutropenic fever. She states that she is having improvement in all of her symptoms she had previously and that she does not feel particularly ill and that if she did not check her temperature she does not feel that she would have in any way come to the hospital today. She has had resolution of her shoulder pain she has had resolution of her burping and belching and she has had ability to eat and drink today. She has not had to use her Magic mouthwash today. General she feels m uch improved. When she was hospitalized she was given IV Zosyn for 3 days on the third day she woke up improved her absolute neutrophil count improved to 700 and she was discharged on Cipro.Blood cultures were negative she did have rhinovirus and her PCR and she required a transfusion. Review of Systems Constitutional: reports: Fever. denies: Myalgias, Fatigue, Sweats Ears: denies: Ear pain Nose: denies: Rhinorrhea / runny nose, Congestion Throat: denies: Sore throat Cardiac: denies: Chest pain / pressure Respiratory: denies: Dyspnea, Cough, Wheezing GI: denies: Abdominal Pain, Nausea, Vomiting, Constipation, Diarrhea : denies: Dysuria, Frequency Skin: denies: Rash Musculoskeletal: denies: Neck pain, Back pain, Extremity pain Neurologic: denies: Generalized weakness, Focal weakness, Numbness PD PAST MEDICAL HISTORY - Past Medical History Past Medical History: Yes Cardiovascular: Hypertension Respiratory: None Neuro: None Endocrine/Autoimmune: None GI: None 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 : None HEENT: None Psych: None Musculoskeletal: None Derm: None - Past Surgical History Past Surgical 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, Breast reduction HEENT: Tonsil/Adenoidectomy - Present Medications Home Medications: Ambulatory Orders Medication Instructions Recorded Confirmed Omeprazole 20 mg PO BID 08/20/23 09/29/23 Magic Mouthwash 1 each PO TID PRN 08/21/23 09/29/23 allopurinoL [Allopurinol] 300 mg PO DAILY 08/21/23 09/29/23 amLODIPine [Norvasc] 10 mg PO DAILY 08/21/23 09/29/23 predniSONE [Prednisone] 100 mg PO UD 09/12/23 09/29/23 Acyclovir 400 mg PO BID 30 Days #60 tablet 09/18/23 09/29/23 Prochlorperazine [Compazine] 10 mg PO Q6H 10 Days #30 tablet 09/18/23 09/29/23 Benzonatate [Tessalon] 100 mg PO TID 09/25/23 09/29/23 Ondansetron [Ondansetron Odt] 8 mg PO Q12H PRN 09/25/23 09/29/23 - Allergies Allergies/Adverse Reactions: Allergies Allergy/AdvReac Type Severity Reaction Status Date / Time Sulfa (Sulfonamide Allergy Anaphylaxis Verified 09/29/23 18:10 Antibiotics) - Social History Does the pt smoke?: No Smoking Status: Never smoker Does the pt drink ETOH?: Yes Does the pt have substance abuse?: No - Immunizations Immunizations are current?: No Immunizations: Other immun not current - POLST Patient has POLST: No PD ED PE NORMAL - Vitals Vital signs reviewed: Yes (hypertensive mild ) - General General: Alert and oriented X 3, No acute distress, Well developed/nourished, Other (pleasant 68 y/o female with no hair, a broad smile and absence of speech latency or delay in execution of motor commands. 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, No motor deficit, No sensory deficit, Normal speech Eye Opening: Spontaneous Motor: Obeys Commands Verbal: Oriented GCS Score: 15 - Psych Psych: Normal mood, Normal affect Results - Vitals Vitals: Vital Signs - 24 hr 09/29/23 09/29/23 09/29/23 18:10 18:54 21:04 Temperature 37 C Heart Rate 100 79 74 Respiratory 20 16 18 Rate Blood Pressure 139/64 H 124/62 106/72 O2 Saturation 98 99 97 09/29/23 09/29/23 09/30/23 21:55 23:00 01:20 Temperature 36.9 C Heart Rate 80 77 77 Respiratory 19 8 L 18 Rate Blood Pressure 121/67 135/76 H O2 Saturation 94 98 97 Oxygen O2 Source Room air - Labs Labs: Laboratory Tests 09/29/23 09/29/23 09/29/23 20:45 20:45 20:45 WBC 2.6 L RBC 2.92 L Hgb 8.0 L Hct 24.0 L MCV 82.2 MCH 27.4 MCHC 33.3 RDW 17.6 H Plt Count 147 MPV 9.2 Neut # (Auto) Not Reportable Lymph # (Auto) Not Reportable Campbell # (Auto) Not Reportable Eos # (Auto) Not Reportable Baso # (Auto) Not Reportable Absolute Nucleated RBC Not Reportable Total Counted 100 Band Neuts % (Manual) 5 Abnorm Lymph % (Manual) 0 Metamyelocytes % 1 H Nucleated RBC % Not Reportable Neutrophils # (Manual) 2.0 Lymphocytes # (Manual) 0.3 L Monocytes # (Manual) 0.3 Eosinophils # (Manual) 0.0 Basophils # (Manual) 0.0 Differential Comment MANUAL DIFFERENTIAL Platelet Estimate NORMAL (130-450,000) Platelet Morphology NORMAL APPEARANCE RBC Morph Micro Appear NORMAL APPEARANCE Sodium 137 Potassium 3.0 L Chloride 105 Carbon Dioxide 26 Anion Gap 6.0 BUN 9 Creatinine 0.7 Estimated GFR (MDRD) 83 L Glucose 100 Lactic Acid 1.3 Calcium 8.9 Total Bilirubin 0.7 AST 16 ALT 13 Alkaline Phosphatase 107 Total Protein 5.6 L Albumin 3.4 Globulin 2.2 Albumin/Globulin Ratio 1.5 Lipase 11 Urine Color Urine Clarity Urine pH Ur Specific Halbur Urine Protein Urine Glucose (UA) Urine Ketones Urine Occult Blood Urine Nitrite Urine Bilirubin Urine Urobilinogen Ur Leukocyte Esterase Ur Microscopic Review Urine Culture Comments 09/29/23 22:20 WBC RBC Hgb Hct MCV MCH MCHC RDW Plt Count MPV Neut # (Auto) Lymph # (Auto) Campbell # (Auto) Eos # (Auto) Baso # (Auto) Absolute Nucleated RBC Total Counted Band Neuts % (Manual) Abnorm Lymph % (Manual) Metamyelocytes % Nucleated RBC % Neutrophils # (Manual) Lymphocytes # (Manual) Monocytes # (Manual) Eosinophils # (Manual) Basophils # (Manual) Differential Comment Platelet Estimate Platelet Morphology RBC Morph Micro Appear Sodium Potassium Chloride Carbon Dioxide Anion Gap BUN Creatinine Estimated GFR (MDRD) Glucose Lactic Acid Calcium Total Bilirubin AST ALT Alkaline Phosphatase Total Protein Albumin Globulin Albumin/Globulin Ratio Lipase Urine Color YELLOW Urine Clarity CLEAR Urine pH 6.5 Ur Specific Halbur 1.020 Urine Protein TRACE Urine Glucose (UA) NEGATIVE Urine Ketones TRACE Urine Occult Blood NEGATIVE Urine Nitrite NEGATIVE Urine Bilirubin NEGATIVE Urine Urobilinogen 0.2 (NORMAL) Ur Leukocyte Esterase NEGATIVE Ur Microscopic Review NOT INDICATED Urine Culture Comments NOT INDICATED - Rads (name of study) chest Relevant Findings:: Prelim report reviewed (Impression: No acute cardiopulmonary process.), EMP independent interpretation of test, See rad report Procedures - Bedside sono Bedside sono by EMP: With POCUS the right upper quadrant is imaged the gallbladder is sonographically nontender there is no pericholecystic fluid and there are no obvious echoing stones. The gallbladder appears contracted with a thickened wall. - IVC sono (time) 1950 Bedside IVC sono: IVC measures (cm) (1.53), Euvolemia PD Medical Decision Making - ED course Complexity details: reviewed old records, reviewed results, re-evaluated patient, considered differential, d/w patient, d/w family Reviewed Lab Results: We reviewed a complete blood count which showed a depressed white blood cell count of 2.6 with 2000 neutrophils. Hemoglobin was low at 8.0 improved from yesterday's posttransfusion level of 7.8. She had a pretransfusion level of 5.9. Hematocrit is 24.0 improved from yesterday as well. Chemistries showed a potassium low at 3.0 otherwise normal electrolytes kidney and liver function and a lactate of 1.3. Urinalysis was unremarkable with a specific gravity 1.020. I interpreted these laboratory results to indicate the patient is no longer neutropenic. This is consistent with the presentation the patient is presenting with physically this evening. ED course: Piedad Wright is a 68-year-old female undergoing treatment for lymphoma who has developed a neutropenic fever associated with rhinovirus. She was admitted to the hospital given 3 by days of IV antibiotic and improved. She is continued on Cipro post hospitalization. She did have some pain in her right shoulder that was present with movement and palpation that is no longer present. She had resolution of this pain during her hospitalization. I felt compelled to examine the gallbladder with the possibility of referred pain to the right shoulder and my cursory evaluation of the gallbladder which was sonographically nontender and without obvious stone is this would be an unlikely source for the patient's fever. I did interrogate the inferior vena cava with POCUS and found the patient to have a normal volume. She was afebrile here in the emergency department. I inquired with the patient about the way that she felt today and she feels well and would not of come to the emergency department had she not had a low-grade fever. We thoroughly evaluated the patient and discharged her to home feeling well. Well enough that she did not need to take her magic mouthwash. Departure - Departure Disposition: 01 Home, Self Care Clinical Impression: Fever Qualifiers: Fever type: unspecified Qualified Code(s): R50.9 - Fever, unspecified Condition: Stable Instructions: Neutropenia Follow-Up: ANANT MCKNIGHT PA-C [Primary Care Provider] - BRIANDA EDWARDS MD [Provider Admit Priv/Credential] - Comments: Angie Klein today it looks like you are no longer neutropenic and we have not found a source for your fever other than the rhinovirus you had when you were admitted 5 days ago. Follow up with your oncologist as planned and expect fever to resolve. Forms: PCP List Discharge Date/Time: 09/30/23 01:21
--- NOTE | 2023-09-29 20:30 | XRAY Report ---
PROCEDURE: Chest 1V INDICATIONS: chest pain TECHNIQUE: One view of the chest was acquired. COMPARISON: chest radiograph 09/24/2023. FINDINGS: Surgical changes and devices: Right chest Port-A-Cath is seen in stable position. Lungs and pleura: No pleural effusions or pneumothorax. Lungs are clear. Mediastinum: Mediastinal contours appear normal. Heart size is normal. Bones and chest wall: No suspicious bony lesions. Overlying soft tissues appear unremarkable. IMPRESSION: No acute cardiopulmonary process. Reviewed by: Mitch Buchanan MD on 09/29/2023 8:28 PM PDT Approved by: Mitch Buchanan MD on 09/29/2023 8:28 PM PDT Station ID: [id number]
[2023-09-29 20:57] LABS: BASOPHILS % (AUTO) 1.2 %; EOSINOPHILS % (AUTO) 0.8 %; LYMPHOCYTES % (AUTO) 6.9 %; MEAN CORPUSCULAR HEMOGLOBIN 27.4 pg (27.0-31.0); MEAN CORPUSCULAR HGB CONC 33.3 g/dL (32.0-36.0); MEAN CORPUSCULAR VOLUME 82.2 fL (81.0-99.0); MEAN PLATELET VOLUME 9.2 fL (7.9-10.8); MONOCYTES % (AUTO) 11.2 %; NEUTROPHILS % (AUTO) 73.4 %; PLT - PLATELET COUNT 147 10^3/uL (130-450); RED BLOOD COUNT 2.92 10^6/uL (4.20-5.40); RED CELL DISTRIBUTION WIDTH 17.6 % (12.0-15.0); WHITE BLOOD COUNT 2.6 x10^3/uL (4.8-10.8)
[2023-09-29 21:06] LABS: ABNORMAL LYMPHS % (MANUAL) 0 %
[2023-09-29 21:15] LABS: ALBUMIN 3.4 g/dL (3.2-5.5); ALBUMIN/GLOBULIN RATIO 1.5 (1.0-2.2); BILIRUBIN,TOTAL 0.7 mg/dL (0.2-1.0); CALCIUM 8.9 mg/dL (8.5-10.3); CREATININE 0.7 mg/dL (0.6-1.3); TOTAL PROTEIN 5.6 g/dL (6.4-8.9)
[2023-09-29 21:29] LABS: BAND NEUTROPHILS % (MANUAL) 5 %; BASOPHILS % (MANUAL) 1 %; LYMPHOCYTES # (MANUAL) 0.3 10^3/uL (1.5-3.5); LYMPHOCYTES % (MANUAL) 10 %; METAMYELOCYTES % (MANUAL) 1 %; MONOCYTES # (MANUAL) 0.3 10^3/uL (0.0-1.0)
[2023-09-29 21:32] LABS: DIFFERENTIAL COMMENT MANUAL DIFFERENTIAL; PLATELET ESTIMATE, MANUAL NORMAL (130-450,000) (NORMAL); PLATELET MORPHOLOGY NORMAL APPEARANCE (NORMAL); RBC MORPHOLOGY (MULTIPLE) NORMAL APPEARANCE (NORMAL)
[2023-09-29] MEDS: POTASSIUM CHLOR 20 MEQ/100 ML 20 MEQ/100 ML BAG IV ONE (21:51)
[2023-09-30 00:44] LABS: BILIRUBIN,URINE NEGATIVE (NEGATIVE); GLUCOSE, URINE (UA) NEGATIVE (NEGATIVE); KETONES,URINE (UA) TRACE mg/dL (NEGATIVE); LEUKOCYTE ESTERASE, URINE NEGATIVE (NEGATIVE); NITRITE,URINE NEGATIVE (NEGATIVE); OCCULT BLOOD,URINE NEGATIVE (NEGATIVE); PH,URINE 6.5 PH (5.0-7.5); PROTEIN,URINE TRACE mg/dL (NEGATIVE); UROBILINOGEN,URINE 0.2 (NORMAL) E.U./dL (NORMAL)
[2023-09-30 00:47] LABS: CLARITY,URINE CLEAR (CLEAR)
[2023-09-30 01:35] VITALS: BP 135/76; O2SAT 97
== END 2023-09-30 01:21 | disposition home or self-care (01) ==
LOC: ED 18:01
DX: R50.9 Fever, unspecified (principal); I10 Essential (primary) hypertension; Z79.899 Other long term (current) drug therapy
CPT/HCPCS: 36415; 80053; 81001; 81003; 83605; 83690; 85025; 87040; 87086; 96365; 96375; 99284

== ENCOUNTER 2023-10-30 09:15 | Outpatient (CLI) | payer MEDICARE | END 2023-10-30 23:59 | disposition home or self-care (01) | LOC: PC 09:15 | PROVIDERS: ATTEND Nurse Practitioner Adult Health | DX: Z51.5 Encounter for palliative care (principal); C91.50 Adult T-cell lymphoma/leukemia (HTLV-1-associated) not having achieved remission; R63.4 Abnormal weight loss; R63.0 Anorexia; R20.2 Paresthesia of skin; K12.31 Oral mucositis (ulcerative) due to antineoplastic therapy; R43.8 Other disturbances of smell and taste; T45.1X5A Adverse effect of antineoplastic and immunosuppressive drugs, initial encounter; F06.4 Anxiety disorder due to known physiological condition; Z71.89 Other specified counseling; Z66 Do not resuscitate; Z79.899 Other long term (current) drug therapy | CPT/HCPCS: 99205 ==

== ENCOUNTER 2023-11-07 08:00 | Outpatient (CLI) | payer MEDICARE | END 2023-11-07 23:59 | disposition home or self-care (01) | LOC: PC 08:00 | PROVIDERS: ATTEND Nurse Practitioner Adult Health | DX: Z51.5 Encounter for palliative care (principal); C91.50 Adult T-cell lymphoma/leukemia (HTLV-1-associated) not having achieved remission; D70.1 Agranulocytosis secondary to cancer chemotherapy; T45.1X5A Adverse effect of antineoplastic and immunosuppressive drugs, initial encounter; B37.0 Candidal stomatitis; D61.818 Other pancytopenia; R50.81 Fever presenting with conditions classified elsewhere; Z20.822 Contact with and (suspected) exposure to COVID-19 | CPT/HCPCS: 99215 ==

== ENCOUNTER 2023-11-07 11:29 | Inpatient (IN) | payer MEDICARE ==
--- NOTE | 2023-11-07 12:16 | ED Physician Documentation ---
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 She has had complications including neutropenic fever for which she was admitted to the hospital here in September and she had a subsequent ER visit with neutropenia and low-grade fever which was thought to be a low low risk and she was discharged on outpatient antibiotic. She is come back into the [facility] clinic for another infusion and today 8 days after her most recent round of CHOP she has low-grade fever and her blood work indicates profound neutropenia as well as severe anemia. She is sent to the emergency department for further treatment. Review of Systems Constitutional: reports: Fever (low grade), Sweats Eyes: denies: Decreased vision Ears: denies: Ear pain Nose: denies: Congestion Throat: denies: Sore throat Cardiac: denies: Chest pain / pressure, Palpitations Respiratory: denies: Dyspnea, Cough GI: denies: Abdominal Pain, Nausea, Vomiting, Constipation, Diarrhea : denies: Dysuria, Frequency Skin: denies: Rash Musculoskeletal: denies: Neck pain, Back pain, Extremity pain Neurologic: reports: Generalized weakness. denies: Focal weakness, Numbness PD PAST MEDICAL HISTORY - Past Medical History Past Medical History: Yes Cardiovascular: Hypertension Respiratory: None Neuro: None Endocrine/Autoimmune: None GI: None FRAME TRIMMER: None : None HEENT: None Psych: None Musculoskeletal: None Derm: None Other Past Medical History: T-cell Lymphoma associated wtih EBV infection - Past Surgical History Past Surgical History: Yes /FRAME TRIMMER: Tubal ligation, Breast reduction HEENT: Tonsil/Adenoidectomy - Present Medications Home Medications: Ambulatory Orders Medication Instructions Recorded Confirmed Omeprazole 20 mg PO BID 08/20/23 10/31/23 Magic Mouthwash 1 each PO TID PRN 08/21/23 10/31/23 allopurinoL [Allopurinol] 300 mg PO DAILY 08/21/23 10/31/23 amLODIPine [Norvasc] 10 mg PO DAILY 08/21/23 10/31/23 predniSONE [Prednisone] 100 mg PO UD 09/12/23 10/31/23 Acyclovir 400 mg PO BID 30 Days #60 tablet 09/18/23 09/29/23 Prochlorperazine [Compazine] 10 mg PO Q6H 10 Days #30 tablet 09/18/23 09/29/23 Benzonatate [Tessalon] 100 mg PO TID 09/25/23 10/31/23 Ondansetron [Ondansetron Odt] 8 mg PO Q12H PRN 09/25/23 10/31/23 Fluconazole [Diflucan] 400 mg PO DAILY 30 Days #30 tablet 10/08/23 10/31/23 levoFLOXacin [Levaquin] 500 mg PO ONCE 30 Days #30 tablet 10/08/23 10/31/23 Clotrimazole Davis [Clotrimazole] 10 mg PO 5XD 10/14/23 10/31/23 Mirtazapine 7.5 mg PO DAILY 10/30/23 10/31/23 - Allergies Allergies/Adverse Reactions: Allergies Allergy/AdvReac Type Severity Reaction Status Date / Time Sulfa (Sulfonamide Allergy Anaphylaxis Verified 09/29/23 18:10 Antibiotics) - Social History Does the pt smoke?: No Smoking Status: Never smoker Does the pt drink ETOH?: Yes Does the pt have substance abuse?: No - Immunizations Immunizations are current?: No Immunizations: Other immun not current - POLST Patient has POLST: No PD ED PE NORMAL - Vitals Vital signs reviewed: Yes (hypertensive low grade temp) - General General: Alert and oriented X 3, Well developed/nourished - HEENT HEENT: Atraumatic, PERRL, EOMI - Neck Neck: Supple, no meningeal sign, No bony TTP - Cardiac Cardiac: RRR, No murmur - Respiratory Respiratory: No respiratory distress, Clear bilaterally - Abdomen Abdomen: Soft, Non distended, No organomegaly - Back Back: No CVA TTP, No spinal TTP - Derm Derm: Normal color, Warm and dry, No rash - Extremities Extremities: No deformity, No edema - Neuro Neuro: Alert and oriented X 3, 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, No motor deficit, No sensory deficit, Normal speech Eye Opening: Spontaneous Motor: Obeys Commands Verbal: Oriented GCS Score: 15 - Psych Psych: Normal mood, Normal affect Results - Vitals Vitals: Vital Signs - 24 hr 11/07/23 11/07/23 11/07/23 11:38 12:38 13:00 Temperature 37.7 C Heart Rate 95 100 92 Heart Rate [ Monitoring electrodes] Respiratory 19 21 17 Rate Blood Pressure 140/69 H 140/71 H 129/58 L Blood Pressure [Right Radial artery] O2 Saturation 100 100 100 11/07/23 11/07/23 11/07/23 14:41 14:57 15:30 Temperature 36.7 C 36.9 C Heart Rate 98 Heart Rate [ 100 98 Monitoring electrodes] Respiratory 20 18 22 Rate Blood Pressure 133/61 H Blood Pressure 135/66 H 135/51 H [Right Radial artery] O2 Saturation 97 99 99 11/07/23 11/07/23 11/07/23 16:45 17:29 17:50 Temperature 37.3 C 38.1 C H 39.1 C H Heart Rate Heart Rate [ 104 H 105 H 110 H Monitoring electrodes] Respiratory 20 20 20 Rate Blood Pressure Blood Pressure 143/75 H 143/64 H 147/68 H [Right Radial artery] O2 Saturation 97 96 96 11/07/23 11/07/23 11/07/23 19:05 19:30 19:52 Temperature 37.3 C 99.2 C H Heart Rate 100 96 Heart Rate [ 91 Monitoring electrodes] Respiratory 18 20 21 Rate Blood Pressure 111/56 L 106/70 Blood Pressure 91/81 H [Right Radial artery] O2 Saturation 95 95 95 11/07/23 11/07/23 11/07/23 20:00 20:07 20:51 Temperature 98.9 C H 36.9 C Heart Rate 96 94 Heart Rate [ 98 Monitoring electrodes] Respiratory 21 22 16 Rate Blood Pressure 125/62 120/81 H Blood Pressure 125/51 L [Right Radial artery] O2 Saturation 95 95 97 Oxygen O2 Source Room air - Labs Labs: Laboratory Tests 11/07/23 11/07/23 11/07/23 12:32 18:58 19:00 WBC 0.1 L* RBC 2.14 L Hgb 6.3 L* Hct 19.1 L* MCV 89.3 MCH 29.4 MCHC 33.0 RDW 15.9 H Plt Count 39 L MPV 9.8 Neut # (Auto) Not Reportable Lymph # (Auto) Not Reportable Irion # (Auto) Not Reportable Eos # (Auto) Not Reportable Baso # (Auto) Not Reportable Absolute Nucleated RBC Not Reportable Total Counted 100 Band Neuts % (Manual) 0 Reactive Lymphs % (Man) 2 Abnorm Lymph % (Manual) 0 Nucleated RBC % Not Reportable Neutrophils # (Manual) 0.0 L* Lymphocytes # (Manual) 0.1 L Monocytes # (Manual) 0.0 Eosinophils # (Manual) 0.0 Basophils # (Manual) 0.0 Differential Comment MANUAL DIFFERENTIAL Platelet Estimate DECREASED (<130,000) Platelet Morphology NORMAL APPEARANCE RBC Morph Micro Appear 1+ MICROCYTOSIS Urine Color YELLOW Urine Clarity CLEAR Urine pH 7.5 Ur Specific [place] 1.020 Urine Protein TRACE Urine Glucose (UA) NEGATIVE Urine Ketones NEGATIVE Urine Occult Blood NEGATIVE Urine Nitrite NEGATIVE Urine Bilirubin NEGATIVE Urine Urobilinogen 1 (NORMAL) Ur Leukocyte Esterase NEGATIVE Ur Microscopic Review NOT INDICATED Urine Culture Comments NOT INDICATED Blood Type O NEGATIVE Antibody Screen NEGATIVE Crossmatch IS Only See Detail - Rads (name of study) chest Relevant Findings:: Prelim report reviewed (Impression: No acute cardiopulmonary process.), EMP independent interpretation of test, See rad report PD Medical Decision Making - ED course Complexity details: reviewed old records, reviewed results, re-evaluated patient, considered differential, d/w patient, d/w family, other (order for the transfusion was intended to be for 2 units. The original order was for 2 units of blood but the transfusion order was not edited for 2 units. The second unit has been administered as inteneded. ) Reviewed Lab Results: The patient's white blood cell count is 0.1 hemoglobin is 5.2 and hematocrit is 16.4 this is a record low for the patient for both the hemoglobin and hematocrit. Platelet count is low at 40,000 also the lowest the patient has had. On the manual differential no neutrophils are seen.I interpreted these laboratory studies indicate the patient has a neutropenia that is severe as well as anemia and thrombocytopenia. She has low enough blood counts to require transfusion of 2 units of blood. ED course: Angie Wright presents to the emergency department with low-grade fever and severe neutropenia as well as severe anemia and thrombocytopenia. We initially wanted to admit the patient to the hospital but beds were not available and we began the transfusion and antibiotic here in the emergency department. She was given a dose of Zosyn. Chest x-ray was clear urinalysis was clear and a respiratory viral swab was positive for rhinovirus. This is similar to her prior presentation. We began a 2 unit transfusion and the patient tolerated the first unit well. Prior to initiation of a second unit a temperature kevin to 38.1 and shortly after beginning her transfusion within 15 minutes she developed a fever to 39 1. We stopped the transfusion. She did get adequate rise in her hemoglobin with the first unit rising her hemoglobin to 6.2. We contacted the pathologist Dr. Carlton Macias who recommended that we test the urine for blood and in the blood work for hemolysis.Late in the patient's stay a bed becomes available and the counter supply worker is consulted in the case. Departure - Departure Disposition: [facility] DC/Xfer Clinical Impression: Neutropenic fever, T-cell lymphoma Anemia Qualifiers: Anemia type: other cause Other causes of anemia: antineoplastic chemotherapy Qualified Code(s): D64.81 - Anemia due to antineoplastic chemotherapy Forms: PCP List
[2023-11-07] MEDS: CEFEPIME 2 GM in SODIUM CHLORIDE 0.9% MINIBAG 100 ML IV STA (13:13)
--- NOTE | 2023-11-07 13:52 | XRAY Report ---
PROCEDURE: Chest 1V INDICATIONS: chest pain TECHNIQUE: One view of the chest was acquired. COMPARISON: 09/29/2023. FINDINGS: Surgical changes and devices: Right chest Port-A-Cath, right axillary clips. Lungs and pleura: No pleural effusions or pneumothorax. Lungs are clear. Mediastinum: Mediastinal contours appear normal. Heart size is normal. Bones and chest wall: No suspicious bony lesions. Overlying soft tissues appear unremarkable. IMPRESSION: No acute cardiopulmonary process. Reviewed by: George Roque MD on 11/07/2023 1:51 PM PDT Approved by: George Roque MD on 11/07/2023 1:51 PM PDT Station ID: [id number]
[2023-11-07] MEDS: ACETAMINOPHEN 1,000 MG/100 ML 1,000 MG/100 ML BAG IV ONE (18:10)
[2023-11-07] MEDS: diphenhydrAMINE INJ 50 MG/ML VIAL IVP STA (18:10)
[2023-11-07 19:03] LABS: LYMPHOCYTES % (AUTO) 85.7 %; MEAN CORPUSCULAR HEMOGLOBIN 29.4 pg (27.0-31.0); MEAN CORPUSCULAR VOLUME 89.3 fL (81.0-99.0); MEAN PLATELET VOLUME 9.8 fL (7.9-10.8); NEUTROPHILS % (AUTO) 14.3 %; PLT - PLATELET COUNT 39 10^3/uL (130-450); RED BLOOD COUNT 2.14 10^6/uL (4.20-5.40); RED CELL DISTRIBUTION WIDTH 15.9 % (12.0-15.0)
[2023-11-07 19:08] LABS: HCT - HEMATOCRIT 19.1 % (37.0-47.0); HGB - HEMOGLOBIN 6.3 g/dL (12.0-16.0); WHITE BLOOD COUNT 0.1 x10^3/uL (4.8-10.8)
[2023-11-07 19:09] LABS: ABNORMAL LYMPHS % (MANUAL) 0 %; BAND NEUTROPHILS % (MANUAL) 0 %
[2023-11-07 19:16] LABS: BILIRUBIN,URINE NEGATIVE (NEGATIVE); GLUCOSE, URINE (UA) NEGATIVE (NEGATIVE); KETONES,URINE (UA) NEGATIVE (NEGATIVE); LEUKOCYTE ESTERASE, URINE NEGATIVE (NEGATIVE); NITRITE,URINE NEGATIVE (NEGATIVE); OCCULT BLOOD,URINE NEGATIVE (NEGATIVE); PH,URINE 7.5 PH (5.0-7.5); PROTEIN,URINE TRACE mg/dL (NEGATIVE); UROBILINOGEN,URINE 1 (NORMAL) E.U./dL (NORMAL)
[2023-11-07 19:18] LABS: CLARITY,URINE CLEAR (CLEAR)
[2023-11-07 19:46] LABS: LYMPHOCYTES # (MANUAL) 0.1 10^3/uL (1.5-3.5); LYMPHOCYTES % (MANUAL) 85 %; REACTIVE LYMPHS % (MANUAL) 2 %
[2023-11-07 19:47] LABS: PLATELET ESTIMATE, MANUAL DECREASED (<130,000) (NORMAL); PLATELET MORPHOLOGY NORMAL APPEARANCE (NORMAL)
[2023-11-07 19:48] LABS: DIFFERENTIAL COMMENT MANUAL DIFFERENTIAL
--- NOTE | 2023-11-07 20:37 | HISTORY & PHYSICAL EXAMINATION ---
Chief Complaint - Chief Complaint Chief Complaint: fever History of Present Illness - Admitted From Admitted From:: home - History Obtained From Records Reviewed: yes History obtained from: patient, chart review, ER provider Exam Limitations: telemedicine - History of Present Illness HPI Comment/Other: Ms Wright is a 68 yo F with history of T cell lymphoma associated with EBV, currently on treatment with CHOP, last infusion 8 days ago on 10/29 (cycle 5). She presents to the ER with complaint of fever and outpatient lab work showed neutropenia and severe anemia Hgb 5.2. Patient reports she first noted fever 101.6 last night, this morning T 101. She usually gets low grade fevers ~T 100 for which she takes tylenol once daily. She denies chest pain, nausea, vomiting, diarrhea, constipation, dysuria, hematuria, hematochezia, melena, hematemesis. She has a sore throat related to oral candidiasis for which she is on Magic mouthwash, did not tolerate fluconazole. She has a dry cough, this is not new for her. Currently she feels ok, but fatigued. Denies dizziness or headaches. Hospital beds were not available earlier in the day, her transfusion was initiated in the ER, first unit was tolerated well, prior to the second unit she had fever of 38.1, and then 15 minutes after initiating transfusion her temperature kevin to 39.1. Transfusion was stopped and transfusion reaction protocol was initiated with pathologist. Patient had an admission for neutropenic fever in September after her previous CHOP cycle. History - Past Medical History Cardiovascular: reports: Hypertension Respiratory: reports: None Neuro: reports: None Endocrine/Autoimmune: reports: None GI: reports: None SPLICER OPERATOR: reports: None : reports: None HEENT: reports: None Psych: reports: None Musculoskeletal: reports: None Derm: reports: None MRSA Hx?: No Other Past Medical History: T-cell Lymphoma associated wtih EBV infection - Past Surgical History /SPLICER OPERATOR: reports: Tubal ligation, Breast reduction HEENT: reports: Tonsil/Adenoidectomy - Family & Social History Living Situation: With friend(s) - POLST Patient has POLST: No Meds/Allgy - Home Medications Home Medications: Ambulatory Orders Medication Instructions Recorded Confirmed Omeprazole 20 mg PO BID 08/20/23 10/31/23 Magic Mouthwash 1 each PO TID PRN 08/21/23 10/31/23 allopurinoL [Allopurinol] 300 mg PO DAILY 08/21/23 10/31/23 amLODIPine [Norvasc] 10 mg PO DAILY 08/21/23 10/31/23 predniSONE [Prednisone] 100 mg PO UD 09/12/23 10/31/23 Acyclovir 400 mg PO BID 30 Days #60 tablet 09/18/23 09/29/23 Prochlorperazine [Compazine] 10 mg PO Q6H 10 Days #30 tablet 09/18/23 09/29/23 Benzonatate [Tessalon] 100 mg PO TID 09/25/23 10/31/23 Ondansetron [Ondansetron Odt] 8 mg PO Q12H PRN 09/25/23 10/31/23 Fluconazole [Diflucan] 400 mg PO DAILY 30 Days #30 tablet 10/08/23 10/31/23 levoFLOXacin [Levaquin] 500 mg PO ONCE 30 Days #30 tablet 10/08/23 10/31/23 Clotrimazole Davis [Clotrimazole] 10 mg PO 5XD 10/14/23 10/31/23 Mirtazapine 7.5 mg PO DAILY 10/30/23 10/31/23 - Allergies Allergies/Adverse Reactions: Allergies Allergy/AdvReac Type Severity Reaction Status Date / Time Sulfa (Sulfonamide Allergy Anaphylaxis Verified 09/29/23 18:10 Antibiotics) Review of Systems - Constitutional Constitutional: reports: Fatigue, Fever, Poor appetite. denies: Chills, Malaise - Cardiovascular Cariovascular: denies: Palpitations, Chest pain, Lightheadedness - Respiratory Respiratory: reports: Cough. denies: Sputum production, Wheezing, Hemoptysis, SOB at rest - Gastrointestinal Gastrointestinal: denies: Abdominal pain, Abdominal distention, Constipation, Diarrhea, Rectal bleeding, Black stools, Bloody stools, Nausea, Vomiting - Genitourinary Genitourinary: denies: Dysuria, Hematuria - Integumentary Integumentary: denies: Rash - Neurological Neurological: reports: General weakness. denies: Focal weakness, Headache, Dizziness - Hematologic/Lymphatic Hematologic/Lymphatic: reports: Anemia - All Other Systems All Other Systems: reports: Reviewed and negative Exam - Vital Signs Reviewed Vital Signs: Yes Vital Signs: Vital Signs x48h Temp Pulse Pulse Resp BP BP Pulse Ox 11/07/23 20:07 98.9 C H 98 22 125/51 L 95 11/07/23 20:00 96 21 125/62 95 11/07/23 19:52 99.2 C H 91 21 91/81 H 95 11/07/23 19:30 96 20 106/70 95 11/07/23 19:05 37.3 C 100 18 111/56 L 95 11/07/23 17:50 39.1 C H 110 H 20 147/68 H 96 11/07/23 17:29 38.1 C H 105 H 20 143/64 H 96 11/07/23 16:45 37.3 C 104 H 20 143/75 H 97 11/07/23 15:30 98 22 133/61 H 99 11/07/23 14:57 36.9 C 98 18 135/51 H 99 11/07/23 14:41 36.7 C 100 20 135/66 H 97 11/07/23 13:00 92 17 129/58 L 100 11/07/23 12:38 100 21 140/71 H 100 - Physical Exam General Appearance: positive: No acute distress, Alert Respiratory: positive: No respiratory distress Cardiovascular: positive: Regular rate & rhythm Abdomen: positive: Non-tender Skin: positive: Color nml, No rash Neurologic/Psychiatric: positive: Oriented x3, Mood/affect nml Conclusion/Plan - Lab Results Lab results reviewed: Yes Fish Bones: 11/07/23 18:58 - Diagnostic Imaging Results Diagnostic Imaging Results: positive: Final report reviewed - Other Other Results/Comments: Neutropenic fever -Leukopenia/neutropenia secondary to chemotherapy -S/p CHOP cycle 5 on 10/29 -Heme/onc consult in a.m. -Continue IV Zosyn -Follow up blood cultures -CXR negative for infiltrates/consolidations, UA negative -Noted enterovirus/rhinovirus PCR positive, unclear clinical significance -Pt denies respiratory symptoms aside from chronic cough (unchanged, nonproductive) -Denies abd pain, n/v -Tylenol PRN for fever -Neutropenic precautions Anemia, thrombocytopenia -Secondary to chemotherapy -No signs of acute blood loss -Possible transfusion reaction - fever/tachycardia within 15 min of initiating second unit of blood -First unit transfused without issue - Hgb improved to 6.3 -Transfusion reaction protocol in place - pathology following -Repeat labs in a.m. T cell lymphoma associated with EBV -Currently undergoing chemotherapy CHOP, most recent cycle 5 on 10/30/23 -Heme/onc consult in a.m. -Patient is not on prophylactic antifungal/antibiotic - oncology aware -Continue prophylactic acyclovir HTN -Resume home antihypertensives pending BP trend GERD -Continue PPI DNR - patient has prior POLST form, confirmed code status with patient DVT ppx - SCDs, anemia/thrombocytopenia
[2023-11-07] MEDS ORDERED: ONDANSETRON 4 MG/2 ML VIAL IVP PRN (21:10)
[2023-11-07] MEDS ORDERED: SODIUM CHLORIDE FLUSH 0.9% 10 ML SYRINGE IVP PRN (21:10)
[2023-11-07] MEDS: PIPERACILLIN/TAZOBACTAM 3.375 GM in SODIUM CHLORIDE 0.9% MINIBAG 100 ML IV ONE (22:31)
[2023-11-08] MEDS: PIPERACILLIN/TAZOBACTAM 3.375 GM in SODIUM CHLORIDE 0.9% MINIBAG 100 ML IV SCH (00:46)
[2023-11-08] MEDS: SODIUM CHLORIDE FLUSH 0.9% 10 ML SYRINGE IVP SCH (00:46)
[2023-11-08 06:06] LABS: HGB - HEMOGLOBIN 7.5 g/dL (12.0-16.0); LYMPHOCYTES % (AUTO) 77.8 %; MEAN CORPUSCULAR HEMOGLOBIN 29.9 pg (27.0-31.0); MEAN CORPUSCULAR HGB CONC 34.1 g/dL (32.0-36.0); MEAN CORPUSCULAR VOLUME 87.6 fL (81.0-99.0); MEAN PLATELET VOLUME 11.5 fL (7.9-10.8); MONOCYTES % (AUTO) 11.1 %; NEUTROPHILS % (AUTO) 11.1 %; RED BLOOD COUNT 2.51 10^6/uL (4.20-5.40); RED CELL DISTRIBUTION WIDTH 15.8 % (12.0-15.0)
[2023-11-08 06:15] LABS: ALBUMIN 2.7 g/dL (3.2-5.5); ALBUMIN/GLOBULIN RATIO 1.2 (1.0-2.2); BILIRUBIN,TOTAL 1.8 mg/dL (0.2-1.0); CALCIUM 7.8 mg/dL (8.5-10.3); CREATININE 0.5 mg/dL (0.6-1.3); POTASSIUM 4.2 mmol/L (3.5-4.5)
[2023-11-08 06:21] LABS: PLT - PLATELET COUNT 34 10^3/uL (130-450); WHITE BLOOD COUNT 0.1 x10^3/uL (4.8-10.8)
[2023-11-08 06:22] LABS: ABNORMAL LYMPHS % (MANUAL) 0 %; BAND NEUTROPHILS % (MANUAL) 0 %
[2023-11-08] MEDS: ACETAMINOPHEN 325 MG TABLET PO PRN (06:30)
[2023-11-08 06:44] LABS: DIFFERENTIAL COMMENT MANUAL DIFFERENTIAL; LYMPHOCYTES # (MANUAL) 0.1 10^3/uL (1.5-3.5); LYMPHOCYTES % (MANUAL) 80 %; PLATELET ESTIMATE, MANUAL DECREASED (<130,000) (NORMAL); RBC MORPHOLOGY (MULTIPLE) 1+ HYPOCHROMASIA (NORMAL)
[2023-11-08] MEDS: ACYCLOVIR 200 MG CAPSULE PO SCH (08:46)
[2023-11-08] MEDS: PANTOPRAZOLE 40 MG TABLET PO SCH (08:47)
[2023-11-08] MEDS: allopurinoL 100 MG TABLET PO SCH (08:47)
--- NOTE | 2023-11-08 13:19 | PROVIDER PROGRESS NOTE ---
Subjective - Prog Note Date Prog Note Date: 11/08/23 Prog Note Time: 13:20 - Subjective Pt reports feeling: No change Subjective: The patient is a 68-year-old female with multiple comorbidities. She currently is being treated for T-cell lymphoma with CHOP therapy. She has completed 5 cycles of chemotherapy with her last infusion 8 days ago. She is in the cindy of her chemotherapy and presented to the emergency room with neutropenic fever. She was found to have a hemoglobin of 5.2 and transfusion was started however her temperature spike to 39.1 and the transfusion was stopped and transfusion reaction protocol was initiated. The patient was hospitalized in September with neutropenic fever from previous CHOP cycle Today when I saw the patient she has remained afebrile overnight. She says she is just not feeling well and has a headache this morning. She is a little bit tearful and overwhelmed. She has 1 more cycle of chemotherapy left and she is anxious to be done with that. She has had no fever or chills this morning. No chest pain or heart palpitations. She says she does have a dry cough but this is nothing new. She has mucositis and a sore throat related to oral candidiasis. She has had no nausea vomiting or diarrhea. Her appetite is poor. No urinary complaints Objective - Vital Signs/Intake & Output Reviewed Vital Signs: Yes Vital Signs: Vital Signs x48h Temp Pulse Resp BP Pulse Ox 11/08/23 07:43 36.7 C 98 18 118/71 95 Intake & Output: Intake & Output 11/05/23 11/06/23 11/07/23 11/08/23 23:59 23:59 23:59 23:59 Intake Total 800 440 Output Total 150 Balance 800 290 - Objective General Appearance: positive: Other (The patient appears to feel quite poorly. She appears to be weak. She is somewhat tearful at the time of my visit) Eyes Bilateral: positive: Normal inspection ENT: positive: Other (She has evidence of mucositis) Neck: positive: Nml inspection Respiratory: positive: Chest non-tender, No respiratory distress, Breath sounds nml Cardiovascular: positive: Regular rate & rhythm, No murmur, No gallop. negative: Friction rub Skin: positive: Color nml, No rash, Warm, Dry Extremities: positive: Non-tender, Full ROM Neurologic/Psychiatric: positive: Oriented x3, CN's nml (2-12) - Lab Results Fish Bones: 11/08/23 04:49 11/08/23 04:49 Other Labs: Lab Results x24hrs 11/08/23 11/08/23 11/07/23 Range/Units 04:49 04:49 19:00 WBC 0.1 L* (4.8-10.8) x10^3/uL RBC 2.51 L (4.20-5.40) 10^6/uL Hgb 7.5 L (12.0-16.0) g/dL Hct 22.0 L (37.0-47.0) % MCV 87.6 (81.0-99.0) fL MCH 29.9 (27.0-31.0) pg MCHC 34.1 (32.0-36.0) g/dL RDW 15.8 H (12.0-15.0) % Plt Count 34 L* (130-450) 10^3/uL MPV 11.5 H (7.9-10.8) fL Neut # (Auto) Not Reportable Lymph # (Auto) Not Reportable Dare # (Auto) Not Reportable Eos # (Auto) Not Reportable Baso # (Auto) Not Reportable Absolute Nucleated RBC Not Reportable Total Counted 20 Band Neuts % (Manual) 0 (0 - 10) % Reactive Lymphs % (Man) % Abnorm Lymph % (Manual) 0 % Nucleated RBC % Not Reportable Neutrophils # (Manual) 0.0 L* (1.5-6.6) 10^3/uL Lymphocytes # (Manual) 0.1 L (1.5-3.5) 10^3/uL Monocytes # (Manual) 0.0 (0.0-1.0) 10^3/uL Eosinophils # (Manual) 0.0 (0-0.7) 10^3/uL Basophils # (Manual) 0.0 (0-0.1) 10^3/uL Differential Comment MANUAL DIFFERENTIAL Platelet Estimate DECREASED (<130,000) (NORMAL) Platelet Morphology (NORMAL) RBC Morph Micro Appear 1+ HYPOCHROMASIA (NORMAL) Sodium 130 L (135-145) mmol/L Potassium 4.2 (3.5-4.5) mmol/L Chloride 101 (101-111) mmol/L Carbon Dioxide 24 (21-32) mmol/L Anion Gap 5.0 L (6-13) BUN 12 (6-20) mg/dL Creatinine 0.5 L (0.6-1.3) mg/dL Estimated GFR (MDRD) 123 (>89) Glucose 96 (74-104) mg/dL Calcium 7.8 L (8.5-10.3) mg/dL Total Bilirubin 1.8 H (0.2-1.0) mg/dL AST 16 (10-42) IU/L ALT 23 (10-60) IU/L Alkaline Phosphatase 158 H (42-121) IU/L Total Protein 5.0 L (6.4-8.9) g/dL Albumin 2.7 L (3.2-5.5) g/dL Globulin 2.3 (2.1-4.2) g/dL Albumin/Globulin Ratio 1.2 (1.0-2.2) Urine Color YELLOW Urine Clarity CLEAR (CLEAR) Urine pH 7.5 (5.0-7.5) PH Ur Specific [place] 1.020 (1.002-1.030) Urine Protein TRACE (NEGATIVE) mg/dL Urine Glucose (UA) NEGATIVE (NEGATIVE) mg/dL Urine Ketones NEGATIVE (NEGATIVE) mg/dL Urine Occult Blood NEGATIVE (NEGATIVE) Urine Nitrite NEGATIVE (NEGATIVE) Urine Bilirubin NEGATIVE (NEGATIVE) Urine Urobilinogen 1 (NORMAL) (NORMAL) E.U./dL Ur Leukocyte Esterase NEGATIVE (NEGATIVE) Ur Microscopic Review NOT INDICATED Urine Culture Comments NOT INDICATED Blood Type Antibody Screen Crossmatch IS Only 11/07/23 11/07/23 Range/Units 18:58 12:32 WBC 0.1 L* (4.8-10.8) x10^3/uL RBC 2.14 L (4.20-5.40) 10^6/uL Hgb 6.3 L* (12.0-16.0) g/dL Hct 19.1 L* (37.0-47.0) % MCV 89.3 (81.0-99.0) fL MCH 29.4 (27.0-31.0) pg MCHC 33.0 (32.0-36.0) g/dL RDW 15.9 H (12.0-15.0) % Plt Count 39 L (130-450) 10^3/uL MPV 9.8 (7.9-10.8) fL Neut # (Auto) Not Reportable Lymph # (Auto) Not Reportable Dare # (Auto) Not Reportable Eos # (Auto) Not Reportable Baso # (Auto) Not Reportable Absolute Nucleated RBC Not Reportable Total Counted 100 Band Neuts % (Manual) 0 (0 - 10) % Reactive Lymphs % (Man) 2 % Abnorm Lymph % (Manual) 0 % Nucleated RBC % Not Reportable Neutrophils # (Manual) 0.0 L* (1.5-6.6) 10^3/uL Lymphocytes # (Manual) 0.1 L (1.5-3.5) 10^3/uL Monocytes # (Manual) 0.0 (0.0-1.0) 10^3/uL Eosinophils # (Manual) 0.0 (0-0.7) 10^3/uL Basophils # (Manual) 0.0 (0-0.1) 10^3/uL Differential Comment MANUAL DIFFERENTIAL Platelet Estimate DECREASED (<130,000) (NORMAL) Platelet Morphology NORMAL APPEARANCE (NORMAL) RBC Morph Micro Appear 1+ MICROCYTOSIS (NORMAL) Sodium (135-145) mmol/L Potassium (3.5-4.5) mmol/L Chloride (101-111) mmol/L Carbon Dioxide (21-32) mmol/L Anion Gap (6-13) BUN (6-20) mg/dL Creatinine (0.6-1.3) mg/dL Estimated GFR (MDRD) (>89) Glucose (74-104) mg/dL Calcium (8.5-10.3) mg/dL Total Bilirubin (0.2-1.0) mg/dL AST (10-42) IU/L ALT (10-60) IU/L Alkaline Phosphatase (42-121) IU/L Total Protein (6.4-8.9) g/dL Albumin (3.2-5.5) g/dL Globulin (2.1-4.2) g/dL Albumin/Globulin Ratio (1.0-2.2) Urine Color Urine Clarity (CLEAR) Urine pH (5.0-7.5) PH Ur Specific [place] (1.002-1.030) Urine Protein (NEGATIVE) mg/dL Urine Glucose (UA) (NEGATIVE) mg/dL Urine Ketones (NEGATIVE) mg/dL Urine Occult Blood (NEGATIVE) Urine Nitrite (NEGATIVE) Urine Bilirubin (NEGATIVE) Urine Urobilinogen (NORMAL) E.U./dL Ur Leukocyte Esterase (NEGATIVE) Ur Microscopic Review Urine Culture Comments Blood Type O NEGATIVE Antibody Screen NEGATIVE Crossmatch IS Only See Detail Sepsis Event Note (H) - Evaluation Current Stage of Sepsis: Sepsis - Sepsis Criteria Sepsis Criteria: Recorded Temperature greater than 38.3C or Less than 36C, Recorded Heart Rate greater than 90 bpm, WBC count greater than 12,000 or less than 4000 Assessment/Plan - Problem List (1) Neutropenic fever Impression: The patient is in the cindy of her CHOP therapy. ANC level is 0. Continue IV Zosyn at the recommendation of her oncologist. Will swab her nares for MRSA to make sure she does not need any coverage for that. (2) T-cell lymphoma Impression: She has completed 5 out of 6 cycles of CHOP therapy. Her oncologist recommended that if she needs further blood she needs leukoreduced irradiated blood products and he recommended that we transfuse for RBC less than 7 and platelets less than 20. (3) Pancytopenia Impression: Secondary to CHOP therapy for T-cell lymphoma. She does not require transfusion today. (4) Mucositis (ulcerative) due to antineoplastic therapy Impression: Will add viscous lidocaine to her regimen ACHS. Unfortunately we do not have [place] Magic mouthwash here which she takes at home. (5) Severe protein-calorie malnutrition Impression: The clinical dietitian is following. She has had a significant weight loss over the past 6 months. (6) Hypertension Impression: Her medications have been held due to her systolic blood pressure being on the l ow side. Currently systolic blood pressure is about 110. Will continue to hold her amlodipine (7) GERD (gastroesophageal reflux disease) Impression: Continue 40 mg of Protonix twice daily (8) Elevated liver function tests Impression: Likely due to her acute illness and treatment. (9) Hyponatremia Impression: She will have a chemistry panel drawn in the morning. This is likely due to her underlying malignancy and acute illness. Disposition: The patient requires ongoing inpatient hospitalization as she has an ANC level of 0 and presented with neutropenic fever. She needs support with IV antibiotics. She is in the cindy of her chemotherapy and may require further transfusions. Timing of disposition will be determined by her clinical course Time spent: 35 minutes
--- NOTE | 2023-11-08 15:53 | PHARMACY PROGRESS NOTE ---
- Best Possible Medication History Admit Date and Time: 11/07/232109 Processed by: Pharmacy (Medication Reconciliation completed by Voice Over Artist, Arianna) Medications reviewed in ED?: No Medication History completed: Yes Patient Interview: Completed Secondary Source(s): Pharmacy records, Insurance records As the person ultimately responsible for medication therapy, providers are able to order a medication from an existing home medication list in [facility] via the "Reconcile Routine" prior to Confirmation of that medication by clinical support specialist. Such practice is discouraged except when the physician, in their clinical judgment, deems that a medical need exists for a medication without regard to previous use.
[2023-11-08] MEDS: LIDOCAINE VISCOUS 2% 15 ML UDC MM SCH (16:41)
[2023-11-09] MEDS: MAGIC MOUTHWASH 120 ML BOTTLE PO PRN (00:41)
[2023-11-09 05:34] LABS: HGB - HEMOGLOBIN 7.3 g/dL (12.0-16.0); LYMPHOCYTES # (AUTO) 0.1 10^3/uL (1.5-3.5); LYMPHOCYTES % (AUTO) 63.6 %; MEAN CORPUSCULAR HEMOGLOBIN 30.3 pg (27.0-31.0); MEAN CORPUSCULAR HGB CONC 34.8 g/dL (32.0-36.0); MEAN CORPUSCULAR VOLUME 87.1 fL (81.0-99.0); MEAN PLATELET VOLUME 12.3 fL (7.9-10.8); MONOCYTES % (AUTO) 9.1 %; NEUTROPHILS % (AUTO) 27.3 %; RED BLOOD COUNT 2.41 10^6/uL (4.20-5.40); RED CELL DISTRIBUTION WIDTH 15.4 % (12.0-15.0)
[2023-11-09 05:49] LABS: ALBUMIN 2.8 g/dL (3.2-5.5); ALBUMIN/GLOBULIN RATIO 1.3 (1.0-2.2); BILIRUBIN,TOTAL 1.5 mg/dL (0.2-1.0); CREATININE 0.5 mg/dL (0.6-1.3); MAGNESIUM 1.8 mg/dL (1.7-2.3); POTASSIUM 3.8 mmol/L (3.5-4.5)
[2023-11-09 05:56] LABS: PLT - PLATELET COUNT 21 10^3/uL (130-450); SLIDE REVIEW? Indicated; WHITE BLOOD COUNT 0.1 x10^3/uL (4.8-10.8)
[2023-11-09 06:38] LABS: PLATELET ESTIMATE, MANUAL DECREASED (<130,000) (NORMAL); PLATELET MORPHOLOGY NORMAL APPEARANCE (NORMAL)
[2023-11-09 06:39] LABS: WBC MORPHOLOGY (MULTIPLE) NORMAL APPEARANCE (NORMAL)
[2023-11-09] MEDS: MULTIVITAMIN W/MINERALS TABLET PO SCH (09:14)
--- NOTE | 2023-11-09 13:07 | PROVIDER PROGRESS NOTE ---
Subjective - Prog Note Date Prog Note Date: 11/09/23 Prog Note Time: 13:05 - Subjective Pt reports feeling: No change Subjective: The patient states she still not feeling much better today. She is concerned that she may have some cellulitis from a wound on her right thumb. She also has an area at the tip of her index finger that is exquisitely painful, somewhat swollen and warm to the touch. Otherwise she has had no fever or chills overnight. No chest pain or heart palpitations. No nausea vomiting or diarrhea. No urinary complaints Current Medications - Current Medications Current Medications: Active Medications Generic Name Dose Route Start Last Admin Trade Name Freq PRN Reason Stop Dose Admin Acetaminophen 650 mg 11/07/23 21:10 11/09/23 10:01 Acetaminophen 325 Mg Tablet PO 650 mg Q4HR PRN Administration Pain 1 to 4, or Fever Acyclovir 400 mg 11/08/23 09:00 11/09/23 09:15 Acyclovir 200 Mg Capsule PO 400 mg Q12H JARED Administration Allopurinol 300 mg 11/08/23 09:00 11/09/23 09:14 Allopurinol 100 Mg Tablet PO 300 mg DAILY JARED Administration Piperacillin Sod/Tazobactam 100 mls @ 25 mls/hr 11/08/23 01:00 11/09/23 09:27 Sod 3.375 gm/ Sodium Chloride IV 25 mls/hr Q8H JARED Infusion Lidocaine HCl 5 ml 11/08/23 16:00 11/09/23 11:25 Lidocaine Viscous 2% 15 Ml Udc MM 5 ml ACHS JARED Administration Multi-Ingredient Mouthwash/Gargle 5 ml 11/07/23 21:18 11/09/23 09:27 Magic Mouthwash 120 Ml Bottle PO 5 ml TID PRN Administration PAIN 1-4 Multivitamins/Minerals 1 tab 11/09/23 08:00 11/09/23 09:14 Multivitamin W/Minerals Tablet PO 1 tab DAILYWM JARED Administration Neomycin/Polymyxin/Bacitracin 1 packet 11/09/23 14:00 Neomycin/Bacitra/Polymyx Oint Packet TOP BID JARED Ondansetron HCl 4 mg 11/07/23 21:10 Ondansetron 4 Mg/2 Ml Vial IVP Q6HR PRN Nausea / Vomiting Pantoprazole Sodium 40 mg 11/08/23 09:00 11/09/23 09:15 Pantoprazole 40 Mg Tablet PO 40 mg BID JARED Administration Sodium Chloride 10 ml 11/07/23 21:10 Sodium Chloride Flush 0.9% 10 Ml Syringe IVP PRN PRN NEEDED PER PROVIDER ORDERS Sodium Chloride 10 ml 11/08/23 01:00 11/09/23 09:15 Sodium Chloride Flush 0.9% 10 Ml Syringe IVP 10 ml 0100,0900,1700 JARED Administration Omeprazole 20 mg PO TID PRN 08/20/23 Magic Mouthwash 1 each PO TID PRN 08/21/23 allopurinoL [Allopurinol] 300 mg PO DAILY 08/21/23 amLODIPine [Norvasc] 10 mg PO DAILY 08/21/23 predniSONE [Prednisone] 100 mg PO UD 09/12/23 Benzonatate [Tessalon] 100 mg PO TID PRN 09/25/23 Ondansetron [Ondansetron Odt] 8 mg PO Q12H PRN 09/25/23 Acetaminophen [Tylenol Arthritis] 650 mg PO BID 11/08/23 Mirtazapine [Remeron] 7.5 mg PO QPM 11/08/23 Multivitamin,Therapeutic [Thera-Tabs] 1 each PO DAILY 11/08/23 Zinc Sulfate 220 mg PO DAILY 11/08/23 Objective - Vital Signs/Intake & Output Reviewed Vital Signs: Yes Vital Signs: Vital Signs x48h Temp Pulse Resp BP Pulse Ox 11/09/23 12:33 36.6 C 97 18 119/68 97 11/09/23 08:26 36.7 C 97 18 146/97 H 100 Intake & Output: Intake & Output 11/06/23 11/07/23 11/08/23 11/09/23 23:59 23:59 23:59 23:59 Intake Total 800 1120 100.417 Output Total 150 Balance 800 970 100.417 - Objective General Appearance: positive: Other (The patient is more interactive today. Still appears to be weak.) Eyes Bilateral: positive: Normal inspection ENT: positive: ENT inspection nml Neck: positive: Nml inspection Respiratory: positive: Chest non-tender, No respiratory distress, Breath sounds nml Cardiovascular: positive: Regular rate & rhythm, No murmur, No gallop. negative: Friction rub Abdomen: positive: Non-tender, No organomegaly, Nml bowel sounds, No distention Skin: positive: Color nml, No rash, Warm, Dry Extremities: positive: Non-tender, Full ROM, Other - Lab Results Fish Bones: 11/09/23 04:48 11/09/23 04:48 Other Labs: Lab Results x24hrs 11/09/23 11/09/23 Range/Units 04:48 04:48 WBC 0.1 L* (4.8-10.8) x10^3/uL RBC 2.41 L (4.20-5.40) 10^6/uL Hgb 7.3 L (12.0-16.0) g/dL Hct 21.0 L (37.0-47.0) % MCV 87.1 (81.0-99.0) fL MCH 30.3 (27.0-31.0) pg MCHC 34.8 (32.0-36.0) g/dL RDW 15.4 H (12.0-15.0) % Plt Count 21 L* (130-450) 10^3/uL MPV 12.3 H (7.9-10.8) fL Neut # (Auto) 0.0 L* (1.5-6.6) 10^3/uL Lymph # (Auto) 0.1 L (1.5-3.5) 10^3/uL Pender # (Auto) 0.0 (0.0-1.0) 10^3/uL Eos # (Auto) 0.0 (0.0-0.7) 10^3/uL Baso # (Auto) 0.0 (0.0-0.1) 10^3/uL Absolute Nucleated RBC 0.00 x10^3/uL Band Neuts % (Manual) Not Reportable Abnorm Lymph % (Manual) Not Reportable Nucleated RBC % 0.0 /100WBC Neutrophils # (Manual) Not Reportable Lymphocytes # (Manual) Not Reportable Monocytes # (Manual) Not Reportable Eosinophils # (Manual) Not Reportable Basophils # (Manual) Not Reportable Manual Slide Review Indicated WBC Morphology NORMAL APPEARANCE (NORMAL) Platelet Estimate DECREASED (<130,000) (NORMAL) Platelet Morphology NORMAL APPEARANCE (NORMAL) RBC Morph Micro Appear 1+ ANISOCYTOSIS (NORMAL) Sodium 134 L (135-145) mmol/L Potassium 3.8 (3.5-4.5) mmol/L Chloride 105 (101-111) mmol/L Carbon Dioxide 24 (21-32) mmol/L Anion Gap 5.0 L (6-13) BUN 11 (6-20) mg/dL Creatinine 0.5 L (0.6-1.3) mg/dL Estimated GFR (MDRD) 123 (>89) Glucose 99 (74-104) mg/dL Calcium 8.0 L (8.5-10.3) mg/dL Magnesium 1.8 (1.7-2.3) mg/dL Total Bilirubin 1.5 H (0.2-1.0) mg/dL AST 12 (10-42) IU/L ALT 18 (10-60) IU/L Alkaline Phosphatase 151 H (42-121) IU/L Total Protein 5.0 L (6.4-8.9) g/dL Albumin 2.8 L (3.2-5.5) g/dL Globulin 2.2 (2.1-4.2) g/dL Albumin/Globulin Ratio 1.3 (1.0-2.2) Sepsis Event Note (H) - Evaluation Current Stage of Sepsis: Sepsis - Sepsis Criteria Sepsis Criteria: Recorded Temperature greater than 38.3C or Less than 36C, Recorded Heart Rate greater than 90 bpm, WBC count greater than 12,000 or less than 4000 Assessment/Plan - Problem List (1) Neutropenic fever Impression: The patient has a wound on her right thumb hey the patient's fevers have resolved. Continue IV Zosyn. MRSA swab is pending. The source of her infection likely has some mild cellulitis on her thumb. The patient also has an area at the tip of her right index finger that is somewhat swollen. It is ex quisitely tender to palpation. She will continue IV antibiotics for now. Continue to check daily CBCs. ANC level is still 0 (2) Cellulitis of right index finger Impression: The patient has some erythema and mild swelling at the tip of her index finger. It almost looks like there is a foreign body in the finger. Will obtain an x- ray. She also has an open area on her right thumb that is less erythematous but somewhat tender. Will place some Neosporin cream on that. Continue current IV antibiotics. MRSA swab is pending. Currently on IV Zosyn. This is day #2 of treatment (3) T-cell lymphoma Impression: She has completed 5 out of 6 cycles of CHOP therapy. Currently in the cindy with an ANC level of 0. (4) Pancytopenia Impression: The patient does require platelet transfusion today as her platelets are less than 20 and her oncologist indicated that she should be transfused if they drop less than that. Her hemoglobin is stable at 7.3 and does not require tr ansfusion today. Her pancytopenia is due to being in the cindy of her chemotherapy (5) Mucositis (ulcerative) due to antineoplastic therapy Impression: She also may have an element of thrush. Will start nystatin swish and swallow. She has Magic mouthwash and viscous lidocaine available as needed. This is all due to her chemotherapy. (6) Severe protein-calorie malnutrition Impression: Continue to encourage good p.o. intake and supplements (7) Hypertension Impression: Blood pressure is stable on no medications. We have held her amlodipine. (8) GERD (gastroesophageal reflux disease) Impression: Continue Protonix (9) Elevated liver function tests Impression: Likely due to her acute illness. Stable (10) Hyponatremia Impression: Likely due to her acute illness. Improving Disposition: Inpatient hospitalization remains necessary. The patient has neutropenic fever. Her ANC level is still 0. She is requiring parenteral antibiotics and close monitoring. Time spent: 35 minutes
--- NOTE | 2023-11-09 14:43 | XRAY Report ---
PROCEDURE: Finger(s) RT INDICATIONS: Possible foreign body, rule out abscess R index fi TECHNIQUE: AP hand, 2 views of the second finger(s) acquired. COMPARISON: None. FINDINGS: Bones: No fractures or dislocations. No suspicious bony lesions. Soft tissues: No suspicious soft tissue calcifications or masses. There is no radiopaque foreign b kurt. IMPRESSION: No radiopaque foreign body or acute bony abnormality. Reviewed by: Lisa Honeycutt MD on 11/09/2023 1:42 PM [facility] Approved by: Lisa Honeycutt MD on 11/09/2023 1:42 PM AK[facility] Station ID: [id number]
[2023-11-09] MEDS: NEOMYCIN/BACITRA/POLYMYX OINT PACKET TOP SCH (14:48)
[2023-11-09] MEDS: NYSTATIN 500000 UNITS/5 ML UDC PO SCH (14:49)
[2023-11-09] MEDS: ACETAMINOPHEN 325 MG TABLET PO ONE ×2 (20:45→20:48)
[2023-11-09] MEDS: MIRTAZAPINE 15 MG TABLET PO SCH (20:46)
[2023-11-09] MEDS: diphenhydrAMINE 25 MG CAPSULE PO ONE ×2 (20:48→20:51)
[2023-11-10 06:14] LABS: LYMPHOCYTES # (AUTO) 0.1 10^3/uL (1.5-3.5); LYMPHOCYTES % (AUTO) 41.2 %; MEAN CORPUSCULAR HGB CONC 34.4 g/dL (32.0-36.0); MEAN CORPUSCULAR VOLUME 87.4 fL (81.0-99.0); MEAN PLATELET VOLUME 11.7 fL (7.9-10.8); MONOCYTES % (AUTO) 5.9 %; NEUTROPHILS % (AUTO) 52.9 %; PLT - PLATELET COUNT 36 10^3/uL (130-450); RED BLOOD COUNT 2.23 10^6/uL (4.20-5.40); RED CELL DISTRIBUTION WIDTH 15.1 % (12.0-15.0)
[2023-11-10 06:21] LABS: ALBUMIN 2.9 g/dL (3.2-5.5); MAGNESIUM 1.8 mg/dL (1.7-2.3)
[2023-11-10 06:27] LABS: CALCIUM 8.4 mg/dL (8.5-10.3); CREATININE 0.5 mg/dL (0.6-1.3); HCT - HEMATOCRIT 19.5 % (37.0-47.0); HGB - HEMOGLOBIN 6.7 g/dL (12.0-16.0); NEUTROPHILS # (AUTO) 0.1 10^3/uL (1.5-6.6); POTASSIUM 3.7 mmol/L (3.5-4.5); SLIDE REVIEW? Indicated; WHITE BLOOD COUNT 0.2 x10^3/uL (4.8-10.8)
[2023-11-10 06:43] LABS: DIFFERENTIAL COMMENT MANUAL=AUTO DIFF; PLATELET ESTIMATE, MANUAL DECREASED (<130,000) (NORMAL); PLATELET MORPHOLOGY NORMAL APPEARANCE (NORMAL); RBC MORPHOLOGY (MULTIPLE) 1+ HYPOCHROMASIA (NORMAL); WBC MORPHOLOGY (MULTIPLE) NORMAL APPEARANCE (NORMAL)
[2023-11-10] MEDS: MULTIVITAMIN W/MINERALS TABLET PO SCH (07:31)
[2023-11-10] MEDS: MAGIC MOUTHWASH 120 ML BOTTLE PO PRN (08:09)
[2023-11-10] MEDS: ZINC SULFATE 220 MG CAPSULE PO SCH (08:52)
[2023-11-10] MEDS: diphenhydrAMINE 25 MG CAPSULE PO ONE (09:18)
[2023-11-10] MEDS: ACETAMINOPHEN 325 MG TABLET PO ONE (09:18)
[2023-11-10] MEDS ORDERED: PIPERACILLIN/TAZOBACTAM 3.375 GM in SODIUM CHLORIDE 0.9% MINIBAG 100 ML IV SCH (10:00)
--- NOTE | 2023-11-10 12:34 | PROVIDER PROGRESS NOTE ---
Subjective - Prog Note Date Prog Note Date: 11/10/23 Prog Note Time: 09:00 - Subjective Pt reports feeling: No change Subjective: Ms. Wright is a 68 y/o female on [facility] for t-cell lymphoma who was admitted for neutropenic fever with pancytopenia on 11/06. Her ANC was 0.0 on admission. She required a blood transfusion in the ED for an hbg of 5.2 on 11/06 and platelets on 11/08 for a platelet count of 21. She has painful mucositis making it hard to open her mouth. Her chest x-ray, UA and blood cultures negative. She has a painful small lesion on her right index finger and over the dorsal aspect of the DIP on her right thumb which she believes are spider bites. X-ray of the index finger did not identify any foreign body. It is likely this is the source of her infection and she is on zosyn with antibiotic ointment to the lesions. Today, she is alert and sitting up in bed. She is working hard to stay positive but became tearful when discussing how hard this has been and how scary it feels. She feels similar to how she did yesterday. The pain of her mouth ulcers has increased and she reports painful and difficult swallowing on the left side of her throat with an enlarged lymph node. She denies fever/chills, cough, SOB, chest pain, headache, dizziness, nausea, diarrhea, or dysuria. The pain in her right thumb and index finger has decreased. She reports she had some unilateral right sided restless feelings in her thigh and upper arm after her platelet transfusion yesterday that resolved with heat packs. She reported a single episode of PRBPR with some blood in the toilet bowl and on the toilet paper and a small blood clot this morning. She denies abdominal or rectal pain. She has a hx of hemorrhoids and has previously had rectal bleeding related to the hemorrhoids. She states she is constipated and believes this is likely another ruptured hemorrhoid. Current Medications - Current Medications Current Medications: Active Medications Generic Name Dose Route Start Last Admin Trade Name Freq PRN Reason Stop Dose Admin Acetaminophen 650 mg 11/07/23 21:10 11/10/23 00:52 Acetaminophen 325 Mg Tablet PO 650 mg Q4HR PRN Administration Pain 1 to 4, or Fever Acyclovir 400 mg 11/08/23 09:00 11/10/23 08:52 Acyclovir 200 Mg Capsule PO 400 mg Q12H JARED Administration Allopurinol 300 mg 11/08/23 09:00 11/10/23 08:52 Allopurinol 100 Mg Tablet PO 300 mg DAILY JARED Administration Benzonatate 100 mg 11/09/23 13:06 Benzonatate 100 Mg Capsule PO TID PRN Nausea / Vomiting Piperacillin Sod/Tazobactam 100 mls @ 25 mls/hr 11/10/23 10:00 Sod 3.375 gm/ Sodium Chloride IV Q8H JARED Lidocaine HCl 5 ml 11/08/23 16:00 11/10/23 11:39 Lidocaine Viscous 2% 15 Ml Udc MM Not Given ACHS JARED Mirtazapine 7.5 mg 11/09/23 21:00 11/09/23 20:46 Mirtazapine 15 Mg Tablet PO 7.5 mg QPM JARED Administration Multi-Ingredient Mouthwash/Gargle 5 ml 11/09/23 13:55 11/10/23 08:09 Magic Mouthwash 120 Ml Bottle PO 5 ml Q4H PRN Administration PAIN 1-4 Multi-Ingredient Mouthwash/Gargle 30 ml 11/09/23 13:54 Magic Mouthwash 120 Ml Bottle PO Q6H PRN Mouth Sore Pain Multivitamins/Minerals 1 tab 11/09/23 08:00 11/10/23 08:52 Multivitamin W/Minerals Tablet PO 1 tab DAILYWM JARED Administration Multivitamins/Minerals 1 tab 11/10/23 09:00 11/10/23 07:31 Multivitamin W/Minerals Tablet PO Not Given DAILY JARED Neomycin/Polymyxin/Bacitracin 1 packet 11/09/23 14:00 11/10/23 08:52 Neomycin/Bacitra/Polymyx Oint Packet TOP 1 packet BID JARED Administration Nystatin 5 ml 11/09/23 14:00 11/10/23 08:52 Nystatin 308123 Units/5 Ml Udc PO 5 ml QID JARED Administration Ondansetron HCl 4 mg 11/07/23 21:10 Ondansetron 4 Mg/2 Ml Vial IVP Q6HR PRN Nausea / Vomiting Pantoprazole Sodium 40 mg 11/08/23 09:00 11/10/23 08:52 Pantoprazole 40 Mg Tablet PO 40 mg BID JARED Administration Sodium Chloride 10 ml 11/07/23 21:10 Sodium Chloride Flush 0.9% 10 Ml Syringe IVP PRN PRN NEEDED PER PROVIDER ORDERS Sodium Chloride 10 ml 11/08/23 01:00 11/10/23 09:55 Sodium Chloride Flush 0.9% 10 Ml Syringe IVP 10 ml 0100,0900,1700 JARED Administration Zinc Sulfate 220 mg 11/10/23 09:00 11/10/23 08:52 Zinc Sulfate 220 Mg Capsule PO 220 mg DAILY JARED Administration Omeprazole 20 mg PO TID PRN 08/20/23 Magic Mouthwash 1 each PO TID PRN 08/21/23 allopurinoL [Allopurinol] 300 mg PO DAILY 08/21/23 amLODIPine [Norvasc] 10 mg PO DAILY 08/21/23 predniSONE [Prednisone] 100 mg PO UD 09/12/23 Benzonatate [Tessalon] 100 mg PO TID PRN 09/25/23 Ondansetron [Ondansetron Odt] 8 mg PO Q12H PRN 09/25/23 Acetaminophen [Tylenol Arthritis] 650 mg PO BID 11/08/23 Mirtazapine [Remeron] 7.5 mg PO QPM 11/08/23 Multivitamin,Therapeutic [Thera-Tabs] 1 each PO DAILY 11/08/23 Zinc Sulfate 220 mg PO DAILY 11/08/23 Objective - Vital Signs/Intake & Output Reviewed Vital Signs: Yes Vital Signs: Vital Signs x48h Temp Pulse Pulse Resp BP Pulse Ox 11/10/23 12:06 36.7 C 82 16 134/74 H 98 11/10/23 09:47 36.8 C 95 16 135/79 H 100 11/10/23 09:31 36.7 C 98 14 149/87 H 100 11/10/23 09:21 36.7 C 91 12 149/87 H 100 11/10/23 08:06 36.6 C 82 18 142/81 H 100 Intake & Output: Intake & Output 11/07/23 11/08/23 11/09/23 11/10/23 23:59 23:59 23:59 23:59 Intake Total 800 1120 1245.000 100 Output Total 150 Balance 031 794 5098.000 100 - Objective General Appearance: positive: No acute distress, Alert, Other (68 y/o female, upright in bed and conversant) Eyes Bilateral: positive: Normal inspection ENT: positive: No signs of dehydration, Oral lesions Neck: positive: No JVD, Trachea midline, Lymphadenopathy (L) Respiratory: positive: Chest non-tender, No respiratory distress, Breath sounds nml. negative: Wheezes, Rales, Rhonchi Cardiovascular: positive: Regular rate & rhythm, No murmur, No gallop Peripheral Pulses: 2+ Radial (R), 2+ Radial (L), 2+ Dorsalis pedis (R), 2+ Dorsalis pedis (L) Abdomen: positive: Non-tender, No organomegaly, Nml bowel sounds, No distention Back: positive: Nml inspection Skin: positive: No rash, Warm, Dry, Pallor Extremities: positive: Nml appearance, No pedal edema, Other (Small punctate lesion pad of right index finger, moderately tender to palpation. Small er ythematous area dosral aspect of DIP on the right thumb, no tenderness on palpation.) Neurologic/Psychiatric: positive: Oriented x3, CN's nml (2-12), Motor nml, Sensation nml, Mood/affect nml - Lab Results Fish Bones: 11/10/23 05:25 11/10/23 05:25 Other Labs: Lab Results x24hrs 11/10/23 11/10/23 11/08/23 Range/Units 05:25 05:25 13:50 WBC 0.2 L* (4.8-10.8) x10^3/uL RBC 2.23 L (4.20-5.40) 10^6/uL Hgb 6.7 L* (12.0-16.0) g/dL Hct 19.5 L* (37.0-47.0) % MCV 87.4 (81.0-99.0) fL MCH 30.0 (27.0-31.0) pg MCHC 34.4 (32.0-36.0) g/dL RDW 15.1 H (12.0-15.0) % Plt Count 36 L (130-450) 10^3/uL MPV 11.7 H (7.9-10.8) fL Neut # (Auto) 0.1 L* (1.5-6.6) 10^3/uL Lymph # (Auto) 0.1 L (1.5-3.5) 10^3/uL [place] # (Auto) 0.0 (0.0-1.0) 10^3/uL Eos # (Auto) 0.0 (0.0-0.7) 10^3/uL Baso # (Auto) 0.0 (0.0-0.1) 10^3/uL Absolute Nucleated RBC 0.00 x10^3/uL Total Counted SUPERVISOR BLOOD Band Neuts % (Manual) Not Reportable Abnorm Lymph % (Manual) Not Reportable Nucleated RBC % 0.0 /100WBC Neutrophils # (Manual) Not Reportable Lymphocytes # (Manual) Not Reportable Monocytes # (Manual) Not Reportable Eosinophils # (Manual) Not Reportable Basophils # (Manual) Not Reportable Differential Comment MANUAL=AUTO DIFF Manual Slide Review Indicated WBC Morphology NORMAL APPEARANCE (NORMAL) Platelet Estimate DECREASED (<130,000) (NORMAL) Platelet Morphology NORMAL APPEARANCE (NORMAL) RBC Morph Micro Appear 1+ HYPOCHROMASIA (NORMAL) Sodium 136 (135-145) mmol/L Potassium 3.7 (3.5-4.5) mmol/L Chloride 106 (101-111) mmol/L Carbon Dioxide 26 (21-32) mmol/L Anion Gap 4.0 L (6-13) BUN 11 (6-20) mg/dL Creatinine 0.5 L (0.6-1.3) mg/dL Estimated GFR (MDRD) 123 (>89) Glucose 118 H (74-104) mg/dL Calcium 8.4 L (8.5-10.3) mg/dL Phosphorus 3.0 (2.5-5.0) mg/dL Magnesium 1.8 (1.7-2.3) mg/dL Albumin 2.9 L (3.2-5.5) g/dL Nasal Screen MRSA (PCR) NEGATIVE (NEGATIVE) Blood Type Antibody Screen Crossmatch IS Only 11/07/23 Range/Units 12:32 WBC (4.8-10.8) x10^3/uL RBC (4.20-5.40) 10^6/uL Hgb (12.0-16.0) g/dL Hct (37.0-47.0) % MCV (81.0-99.0) fL MCH (27.0-31.0) pg MCHC (32.0-36.0) g/dL RDW (12.0-15.0) % Plt Count (130-450) 10^3/uL MPV (7.9-10.8) fL Neut # (Auto) (1.5-6.6) 10^3/uL Lymph # (Auto) (1.5-3.5) 10^3/uL [place] # (Auto) (0.0-1.0) 10^3/uL Eos # (Auto) (0.0-0.7) 10^3/uL Baso # (Auto) (0.0-0.1) 10^3/uL Absolute Nucleated RBC x10^3/uL Total Counted Band Neuts % (Manual) Abnorm Lymph % (Manual) Nucleated RBC % /100WBC Neutrophils # (Manual) Lymphocytes # (Manual) Monocytes # (Manual) Eosinophils # (Manual) Basophils # (Manual) Differential Comment Manual Slide Review WBC Morphology (NORMAL) Platelet Estimate (NORMAL) Platelet Morphology (NORMAL) RBC Morph Micro Appear (NORMAL) Sodium (135-145) mmol/L Potassium (3.5-4.5) mmol/L Chloride (101-111) mmol/L Carbon Dioxide (21-32) mmol/L Anion Gap (6-13) BUN (6-20) mg/dL Creatinine (0.6-1.3) mg/dL Estimated GFR (MDRD) (>89) Glucose (74-104) mg/dL Calcium (8.5-10.3) mg/dL Phosphorus (2.5-5.0) mg/dL Magnesium (1.7-2.3) mg/dL Albumin (3.2-5.5) g/dL Nasal Screen MRSA (PCR) (NEGATIVE) Blood Type O NEGATIVE Antibody Screen NEGATIVE Crossmatch IS Only See Detail ABX Reporting Has patient been on IV antibiotics over the past 48 hours?: Yes Sepsis Event Note (H) - Evaluation Current Stage of Sepsis: Sepsis - Sepsis Criteria Sepsis Criteria: Recorded Temperature greater than 38.3C or Less than 36C, Recorded Heart Rate greater than 90 bpm, WBC count greater than 12,000 or less than 4000 Assessment/Plan - Problem List (1) Neutropenic fever Impression: The patient has a wound on her right thumb and index fingers which are improving and the patient's fevers have resolved. MRSA swab is negative. Chest x-ray, blood cultures and UA were negative for infection. The source of her infection is likely the cellulitis on the right thumb and index finger. I will continue her on IV zosyn. I will continue to check daily CBCs. ANC level has increased from 0.0 to 0.1. (2) Cellulitis of right index finger Impression: The patient has some erythema and mild swelling at the tip of her index finger which is tender to palpation, although it is less painful today than yesterday. She also has an open area on her right thumb that is less erythematous and non- tender today. An x-ray of the index finger did not show any foreign body. She believes they are spider bites due to seeing spiders in her house recently. I will continue neosporin to the lesions and IV zosyn. Nasal MRSA swab is negative. This is day #3 of treatment. (3) Pancytopenia Impression: Her pancytopenia is due to being in the cindy of her chemotherapy. Her hbg is 6.7 today which requires transfusions. I have ordered 2 units of PRBCs. She received a platelet transfusion yesterday and her platelets are 36 today. Her WBCs are 0.2 with her ANC at 0.1. (4) T-cell lymphoma Impression: She has completed 5 out of 6 cycles of CHOP therapy. Currently in the cindy with an ANC level of 0.1. Today, she has lymphadenopathy on her left neck with painful swallowing on that side. (5) Mucositis (ulcerative) due to antineoplastic therapy Impression: She reports increased mouth pain with lesions on both sides of her mouth and painful swallowing. She also may have an element of thrush. She was started on nystatin swish and swallow on 11/08. She has Magic mouthwash and viscous lidocaine available as needed. This is all due to her chemotherapy. (6) Severe protein-calorie malnutrition Impression: I will continue to encourage good p.o. intake and supplements. (7) Hypertension Impression: Blood pressure is stable on no medications. We have held her amlodipine. (8) GERD (gastroesophageal reflux disease) Impression: Continue Protonix (9) Elevated liver function tests Impression: Likely due to her acute illness. Stable (10) Hyponatremia Impression: Likely due to her acute illness. Resolved 11/09 at 136.
[2023-11-10] MEDS: PIPERACILLIN/TAZOBACTAM 3.375 GM in SODIUM CHLORIDE 0.9% MINIBAG 100 ML IV SCH (17:05)
[2023-11-11 05:36] LABS: HCT - HEMATOCRIT 26.8 % (37.0-47.0); HGB - HEMOGLOBIN 9.1 g/dL (12.0-16.0); LYMPHOCYTES # (AUTO) 0.1 10^3/uL (1.5-3.5); LYMPHOCYTES % (AUTO) 27.3 %; MEAN CORPUSCULAR HEMOGLOBIN 28.5 pg (27.0-31.0); MEAN PLATELET VOLUME 10.2 fL (7.9-10.8); MONOCYTES % (AUTO) 9.1 %; NEUTROPHILS % (AUTO) 60.6 %; RED BLOOD COUNT 3.19 10^6/uL (4.20-5.40); RED CELL DISTRIBUTION WIDTH 15.1 % (12.0-15.0)
[2023-11-11 05:53] LABS: ALBUMIN 3.1 g/dL (3.2-5.5); CREATININE 0.5 mg/dL (0.6-1.3); PHOSPHORUS 2.5 mg/dL (2.5-5.0); POTASSIUM 3.4 mmol/L (3.5-4.5)
[2023-11-11 05:54] LABS: PLT - PLATELET COUNT 35 10^3/uL (130-450); WHITE BLOOD COUNT 0.3 x10^3/uL (4.8-10.8)
[2023-11-11 05:55] LABS: NEUTROPHILS # (AUTO) 0.2 10^3/uL (1.5-6.6); SLIDE REVIEW? Indicated
[2023-11-11 06:22] LABS: PLATELET ESTIMATE, MANUAL DECREASED (<130,000) (NORMAL); PLATELET MORPHOLOGY NORMAL APPEARANCE (NORMAL); RBC MORPHOLOGY (MULTIPLE) 1+ HYPOCHROMASIA (NORMAL)
[2023-11-11 06:23] LABS: DIFFERENTIAL COMMENT MANUAL=AUTO DIFF; WBC MORPHOLOGY (MULTIPLE) NORMAL APPEARANCE (NORMAL)
--- NOTE | 2023-11-11 07:50 | PROVIDER PROGRESS NOTE ---
Subjective - Prog Note Date Prog Note Date: 11/11/23 Prog Note Time: 07:49 - Subjective Pt reports feeling: Improved Subjective: Ms. Wright is a 68 y/o female on [facility] for t-cell lymphoma who was admitted for neutropenic fever with pancytopenia on 11/06. Her ANC was 0.0 on admission. She required a blood transfusion in the ED for an hbg of 5.2 on 11/06 and platelets on 11/08 for a platelet count of 21. She has painful mucositis making it hard to open her mouth. Her chest x-ray, UA and blood cultures negative. She has a painful small lesion on her right index finger and over the dorsal aspect of the DIP on her right thumb which she believes are spider bites. X-ray of the index finger did not identify any foreign body. It is likely this is the source of her infection and she is on zosyn with antibiotic ointment to the lesions. Today, she is alert and sitting up in bed. She is pleasant and interactive, states she feels angry because she has developed a new sores on her tongue and it is very painful to eat or swallow. The pain of her mouth ulcers has increased and she continues to have painful and difficult swallowing on the left side of her throat with an enlarged lymph node. She denies fever/chills, cough, SOB, chest pain, headache, dizziness, nausea, diarrhea, or dysuria. The pain in her right thumb and index finger has decreased and she can now press on the pad of her index finger without pain. She has taken of the bandages and did not want them replaced. She reported a single episode of PRBPR with some blood in the toilet bowl and on the toilet paper and a small blood clot yesterday. She denies abdominal or rectal pain. She has a hx of hemorrhoids and has previously had rectal bleeding related to the hemorrhoids. She states she is constipated and believes this is likely another ruptured hemorrhoid. She did not report additional episodes today. Current Medications - Current Medications Current Medications: Active Medications Generic Name Dose Route Start Last Admin Trade Name Freq PRN Reason Stop Dose Admin Acetaminophen 650 mg 11/07/23 21:10 11/10/23 20:33 Acetaminophen 325 Mg Tablet PO 650 mg Q4HR PRN Administration Pain 1 to 4, or Fever Acyclovir 400 mg 11/08/23 09:00 11/10/23 20:36 Acyclovir 200 Mg Capsule PO 400 mg Q12H JARED Administration Allopurinol 300 mg 11/08/23 09:00 11/10/23 08:52 Allopurinol 100 Mg Tablet PO 300 mg DAILY JARED Administration Benzonatate 100 mg 11/09/23 13:06 Benzonatate 100 Mg Capsule PO TID PRN Nausea / Vomiting Piperacillin Sod/Tazobactam 100 mls @ 25 mls/hr 11/10/23 18:00 11/11/23 06:00 Sod 3.375 gm/ Sodium Chloride IV Infused Q8H JARED Infusion Lidocaine HCl 5 ml 11/08/23 16:00 11/11/23 06:05 Lidocaine Viscous 2% 15 Ml Udc MM Not Given ACHS JARED Mirtazapine 7.5 mg 11/09/23 21:00 11/10/23 20:33 Mirtazapine 15 Mg Tablet PO Not Given QPM JARED Multi-Ingredient Mouthwash/Gargle 5 ml 11/09/23 13:55 11/10/23 21:52 Magic Mouthwash 120 Ml Bottle PO 5 ml Q4H PRN Administration PAIN 1-4 Multi-Ingredient Mouthwash/Gargle 30 ml 11/09/23 13:54 Magic Mouthwash 120 Ml Bottle PO Q6H PRN Mouth Sore Pain Multivitamins/Minerals 1 tab 11/09/23 08:00 11/10/23 08:52 Multivitamin W/Minerals Tablet PO 1 tab DAILYWM JARED Administration Multivitamins/Minerals 1 tab 11/10/23 09:00 11/10/23 07:31 Multivitamin W/Minerals Tablet PO Not Given DAILY JARED Neomycin/Polymyxin/Bacitracin 1 packet 11/09/23 14:00 11/10/23 20:38 Neomycin/Bacitra/Polymyx Oint Packet TOP 1 packet BID JARED Administration Nystatin 5 ml 11/09/23 14:00 11/10/23 20:37 Nystatin 753813 Units/5 Ml Udc PO 5 ml QID JARED Administration Ondansetron HCl 4 mg 11/07/23 21:10 Ondansetron 4 Mg/2 Ml Vial IVP Q6HR PRN Nausea / Vomiting Pantoprazole Sodium 40 mg 11/08/23 09:00 11/10/23 20:36 Pantoprazole 40 Mg Tablet PO 40 mg BID JARED Administration Polyethylene Glycol 17 gm 11/11/23 09:00 Polyethylene Glycol 3350 17 Gm Packet PO DAILY JARED Sodium Chloride 10 ml 11/07/23 21:10 Sodium Chloride Flush 0.9% 10 Ml Syringe IVP PRN PRN NEEDED PER PROVIDER ORDERS Sodium Chloride 10 ml 11/08/23 01:00 11/10/23 21:50 Sodium Chloride Flush 0.9% 10 Ml Syringe IVP 10 ml 0100,0900,1700 JARED Administration Zinc Sulfate 220 mg 11/10/23 09:00 11/10/23 08:52 Zinc Sulfate 220 Mg Capsule PO 220 mg DAILY JARED Administration Omeprazole 20 mg PO TID PRN 08/20/23 Magic Mouthwash 1 each PO TID PRN 08/21/23 allopurinoL [Allopurinol] 300 mg PO DAILY 08/21/23 amLODIPine [Norvasc] 10 mg PO DAILY 08/21/23 predniSONE [Prednisone] 100 mg PO UD 09/12/23 Benzonatate [Tessalon] 100 mg PO TID PRN 09/25/23 Ondansetron [Ondansetron Odt] 8 mg PO Q12H PRN 09/25/23 Acetaminophen [Tylenol Arthritis] 650 mg PO BID 11/08/23 Mirtazapine [Remeron] 7.5 mg PO QPM 11/08/23 Multivitamin,Therapeutic [Thera-Tabs] 1 each PO DAILY 11/08/23 Zinc Sulfate 220 mg PO DAILY 11/08/23 Objective - Vital Signs/Intake & Output Reviewed Vital Signs: Yes Vital Signs: Vital Signs x48h Temp Pulse Resp BP BP Pulse Ox O2 Flow Rate 11/11/23 07:42 36.7 C 77 20 152/84 H 152/84 H 98 0 11/11/23 04:51 36.3 C L 85 18 138/83 H 97 Intake & Output: Intake & Output 11/08/23 11/09/23 11/10/23 11/11/23 23:59 23:59 23:59 23:59 Intake Total 1120 1046.492 4221 600 Output Total 150 200 Balance 970 1245.000 990 600 - Objective General Appearance: positive: No acute distress, Other (68 y/o female, sitting upreight in bed, alert and conversant) Eyes Bilateral: positive: Normal inspection ENT: positive: Oral lesions (Multiple oral lesions of tongue and gums due to mucositis, no white patches noted) Neck: positive: No JVD, Trachea midline, Lymphadenopathy (L) Respiratory: positive: Chest non-tender, No respiratory distress, Breath sounds nml. negative: Wheezes, Rales, Rhonchi Cardiovascular: positive: Regular rate & rhythm, No murmur, No gallop Peripheral Pulses: 2+ Radial (R), 2+ Radial (L), 2+ Dorsalis pedis (R), 2+ Dorsalis pedis (L) Abdomen: positive: Non-tender, No organomegaly, Nml bowel sounds, No distention. negative: Guarding, Rebound Back: positive: Nml inspection Skin: positive: No rash, Warm, Dry, Pallor, Other (Punctate lesion pad of right index finger, minimal discomfort and able to tolerate pressure (improvement) Erythematous region dorsal DIP of right thumb resolved) Extremities: positive: Nml appearance, No pedal edema Neurologic/Psychiatric: positive: Oriented x3, CN's nml (2-12), Motor nml, Sensation nml, Mood/affect nml - Lab Results Fish Bones: 11/11/23 04:59 11/11/23 04:59 Other Labs: Lab Results x24hrs 11/11/23 11/11/23 11/07/23 Range/Units 04:59 04:59 12:32 WBC 0.3 L* (4.8-10.8) x10^3/uL RBC 3.19 L (4.20-5.40) 10^6/uL Hgb 9.1 L (12.0-16.0) g/dL Hct 26.8 L (37.0-47.0) % MCV 84.0 (81.0-99.0) fL MCH 28.5 (27.0-31.0) pg MCHC 34.0 (32.0-36.0) g/dL RDW 15.1 H (12.0-15.0) % Plt Count 35 L* (130-450) 10^3/uL MPV 10.2 (7.9-10.8) fL Neut # (Auto) 0.2 L* (1.5-6.6) 10^3/uL Lymph # (Auto) 0.1 L (1.5-3.5) 10^3/uL [place] # (Auto) 0.0 (0.0-1.0) 10^3/uL Eos # (Auto) 0.0 (0.0-0.7) 10^3/uL Baso # (Auto) 0.0 (0.0-0.1) 10^3/uL Absolute Nucleated RBC 0.00 x10^3/uL Total Counted GLOBAL LOGISTICS ANALYST Band Neuts % (Manual) Not Reportable Abnorm Lymph % (Manual) Not Reportable Nucleated RBC % 0.0 /100WBC Neutrophils # (Manual) Not Reportable Lymphocytes # (Manual) Not Reportable Monocytes # (Manual) Not Reportable Eosinophils # (Manual) Not Reportable Basophils # (Manual) Not Reportable Differential Comment MANUAL=AUTO DIFF Manual Slide Review Indicated WBC Morphology NORMAL APPEARANCE (NORMAL) Platelet Estimate DECREASED (<130,000) (NORMAL) Platelet Morphology NORMAL APPEARANCE (NORMAL) RBC Morph Micro Appear 1+ HYPOCHROMASIA (NORMAL) Sodium 137 (135-145) mmol/L Potassium 3.4 L (3.5-4.5) mmol/L Chloride 106 (101-111) mmol/L Carbon Dioxide 27 (21-32) mmol/L Anion Gap 4.0 L (6-13) BUN 9 (6-20) mg/dL Creatinine 0.5 L (0.6-1.3) mg/dL Estimated GFR (MDRD) 123 (>89) Glucose 96 (74-104) mg/dL Calcium 8.0 L (8.5-10.3) mg/dL Phosphorus 2.5 (2.5-5.0) mg/dL Albumin 3.1 L (3.2-5.5) g/dL Blood Type O NEGATIVE Antibody Screen NEGATIVE Crossmatch IS Only See Detail ABX Reporting Has patient been on IV antibiotics over the past 48 hours?: Yes Sepsis Event Note (H) - Evaluation Current Stage of Sepsis: Sepsis - Sepsis Criteria Sepsis Criteria: Recorded Temperature greater than 38.3C or Less than 36C, Recorded Heart Rate greater than 90 bpm, WBC count greater than 12,000 or less than 4000 Assessment/Plan - Problem List (1) Neutropenic fever Impression: The patient has a wound on her right thumb and index fingers which are improving and the patient's fevers have resolved. MRSA swab is negative. Chest x-ray, blood cultures and UA were negative for infection. The source of her infection is likely the cellulitis on the right thumb and index finger. I will continue her on IV zosyn. I will continue to check daily CBCs. ANC level has increased from 0.0 upon admission to 0.2. (2) Cellulitis of right index finger Impression: The patient has some erythema and mild swelling at the tip of her index finger which is no longer tender to palpation and appears to be resolving. She also has a lesion on her right thumb that is no longer erythematous and is non-tender today. An x-ray of the index finger did not show any foreign body. She believes they are spider bites due to seeing spiders in her house recently. She declined further neosporin and bandages to the finger lesions. I will continue IV zosyn. Nasal MRSA swab is negative. This is day #4 of treatment. (3) Pancytopenia Impression: Her pancytopenia is due to being in the cindy of her chemotherapy. Her hbg is 9.1 today after her second transfusion yesterday (11/09). She received a platelet transfusion 11/08 and her platelets are 35 today. Her WBCs have increased to 0.3 her ANC to 0.2. (4) T-cell lymphoma Impression: She has completed 5 out of 6 cycles of CHOP therapy. ANC slowly increasing and is 0.2. She has lymphadenopathy on her left neck with painful swallowing on that side. (5) Mucositis (ulcerative) due to antineoplastic therapy Impression: She reports increased mouth pain with lesions on both sides of her mouth and painful swallowing. She also may have an element of thrush. She was started on nystatin swish and swallow on 11/08. She has Magic mouthwash and viscous lidocaine available as needed. An additional lesion on her tongue was noted today, no white or yellow plaques noted today. This is all due to her chemotherapy. (6) Severe protein-calorie malnutrition Impression: I will continue to encourage good p.o. intake and supplements. She ate 100% of her breakfast today. (7) Hypertension Impression: Blood pressure is stable on no medications. We have held her amlodipine. (8) GERD (gastroesophageal reflux disease) Impression: Continue Protonix. (9) Elevated liver function tests Impression: Likely due to her acute illness. Stable (10) Hypokalemia Impression: Potassium has dropped from 4.2 upon admission to 3.4 today. I have ordered 40 mEq IV potassium and will recheck it tomorrow. (11) Hyponatremia Impression: Likely due to her acute illness. Resolved 11/09. today is 137.
[2023-11-11] MEDS: polyethylene glycoL 3350 17 GM PACKET PO SCH (08:21)
[2023-11-11] MEDS: POTASSIUM CHLORIDE 20 MEQ TABLET PO ONE (08:28)
[2023-11-12 05:37] LABS: BASOPHILS % (AUTO) 3.9 %; HCT - HEMATOCRIT 24.6 % (37.0-47.0); HGB - HEMOGLOBIN 8.4 g/dL (12.0-16.0); LYMPHOCYTES % (AUTO) 21.6 %; MEAN CORPUSCULAR HEMOGLOBIN 29.2 pg (27.0-31.0); MEAN CORPUSCULAR HGB CONC 34.1 g/dL (32.0-36.0); MEAN CORPUSCULAR VOLUME 85.4 fL (81.0-99.0); MEAN PLATELET VOLUME 10.9 fL (7.9-10.8); MONOCYTES % (AUTO) 9.8 %; NEUTROPHILS % (AUTO) 43.1 %; PLT - PLATELET COUNT 46 10^3/uL (130-450); RED BLOOD COUNT 2.88 10^6/uL (4.20-5.40); RED CELL DISTRIBUTION WIDTH 15.3 % (12.0-15.0)
[2023-11-12 05:47] LABS: ALBUMIN 2.9 g/dL (3.2-5.5); CALCIUM 7.8 mg/dL (8.5-10.3); CREATININE 0.4 mg/dL (0.6-1.3); PHOSPHORUS 1.9 mg/dL (2.5-5.0); POTASSIUM 3.6 mmol/L (3.5-4.5)
[2023-11-12 05:58] LABS: WHITE BLOOD COUNT 0.5 x10^3/uL (4.8-10.8)
[2023-11-12 05:59] LABS: ABNORMAL LYMPHS % (MANUAL) 0 %
[2023-11-12 06:22] LABS: BAND NEUTROPHILS % (MANUAL) 4 %; DIFFERENTIAL COMMENT MANUAL DIFFERENTIAL; LYMPHOCYTES # (MANUAL) 0.2 10^3/uL (1.5-3.5); LYMPHOCYTES % (MANUAL) 36 %; NEUTROPHILS # (MANUAL) 0.3 10^3/uL (1.5-6.6); PLATELET ESTIMATE, MANUAL DECREASED (<130,000) (NORMAL); RBC MORPHOLOGY (MULTIPLE) NORMAL APPEARANCE (NORMAL)
--- NOTE | 2023-11-12 09:31 | PROVIDER PROGRESS NOTE ---
Subjective - Prog Note Date Prog Note Date: 11/12/23 Prog Note Time: 09:26 - Subjective Pt reports feeling: Improved Subjective: Seen this morning and then again this afternoon. She has many fewer complaints this afternoon. She continues to have early satiety and difficulty eating. But otherwise is doing well. She is hopeful for some travel as the year is ending and has a lot of people surrounding her that love her. [place] best friend that helps her stay centered and focused. She has had a rough year. she was diagnosed with her lymphoma on June 04 and her dad on June 06. Current Medications - Current Medications Current Medications: Medications Multivitamins/Minerals (Multivitamin W/Minerals Tablet) [address] [facility] Last Admin: 11/12/23 09:15 Dose: 1 tab Acetaminophen (Acetaminophen 325 Mg Tablet) 650 mg PO Q4HR PRN PRN Reason: Pain 1 to 4, or Fever Last Admin: 11/10/23 20:33 Dose: 650 mg Acyclovir (Acyclovir 200 Mg Capsule) [address] [facility] Last Admin: 11/12/23 09:16 Dose: 400 mg Allopurinol (Allopurinol 100 Mg Tablet) [address] [facility] Last Admin: 11/12/23 09:15 Dose: 300 mg Benzonatate (Benzonatate 100 Mg Capsule) 100 mg PO TID PRN PRN Reason: Nausea / Vomiting Nystatin (Nystatin 240091 Units/5 Ml Udc) [address] [facility] Last Admin: 11/12/23 09:25 Dose: 5 ml Lidocaine HCl (Lidocaine Viscous 2% 15 Ml Udc) [address] [facility] Last Admin: 11/12/23 06:35 Dose: Not Given Mirtazapine (Mirtazapine 15 Mg Tablet) 7.[address] [facility] Last Admin: 11/11/23 21:41 Dose: 7.5 mg Multi-Ingredient Mouthwash/Gargle (Magic Mouthwash 120 Ml Bottle) 5 ml PO Q4H PRN PRN Reason: PAIN 1-4 Last Admin: 11/10/23 21:52 Dose: 5 ml Pantoprazole Sodium (Pantoprazole 40 Mg Tablet) [address] [facility] Last Admin: 11/12/23 09:15 Dose: 40 mg Piperacillin Sod/Tazobactam (Sod 3.375 gm/ Sodium Chloride) 100 mls @ 25 mls/hr IV Q8H [facility] Last Admin: 11/12/23 06:06 Dose: Infused Polyethylene Glycol (Polyethylene Glycol 3350 17 Gm Packet) [address] [facility] Last Admin: 11/12/23 09:18 Dose: Not Given Objective - Vital Signs/Intake & Output Vital Signs: Vital Signs x48h Temp Pulse Resp BP Pulse Ox O2 Flow Rate 11/12/23 07:49 36.7 C 89 19 135/88 H 98 0 11/12/23 03:59 36.6 C 81 18 138/80 H 98 Intake & Output: Intake & Output 11/09/23 11/10/23 11/11/23 11/12/23 23:59 23:59 23:59 23:59 Intake Total 1971.383 5172 1460 100 Output Total 200 Balance 1245.083 755 0456 100 - Objective General Appearance: positive: No acute distress, Alert Eyes Bilateral: positive: Normal inspection ENT: positive: ENT inspection nml Neck: positive: Nml inspection Respiratory: positive: No respiratory distress, Breath sounds nml Cardiovascular: positive: Regular rate & rhythm Abdomen: positive: Non-tender Skin: positive: Color nml, Other (right index finger and thumb improved.) Extremities: positive: No pedal edema, Other (left second toe without worsening, no cellulitis. just hemrrhage which is not under pressure at base of nail) - Lab Results Fish Bones: 11/12/23 05:23 11/12/23 05:23 Other Labs: Lab Results x24hrs 11/12/23 11/12/23 Range/Units 05:23 05:23 WBC 0.5 L* (4.8-10.8) x10^3/uL RBC 2.88 L (4.20-5.40) 10^6/uL Hgb 8.4 L (12.0-16.0) g/dL Hct 24.6 L (37.0-47.0) % MCV 85.4 (81.0-99.0) fL MCH 29.2 (27.0-31.0) pg MCHC 34.1 (32.0-36.0) g/dL RDW 15.3 H (12.0-15.0) % Plt Count 46 L (130-450) 10^3/uL MPV 10.9 H (7.9-10.8) fL Neut # (Auto) Not Reportable Lymph # (Auto) Not Reportable [place] # (Auto) Not Reportable Eos # (Auto) Not Reportable Baso # (Auto) Not Reportable Absolute Nucleated RBC Not Reportable Total Counted 25 Band Neuts % (Manual) 4 (0 - 10) % Abnorm Lymph % (Manual) 0 % Nucleated RBC % Not Reportable Neutrophils # (Manual) 0.3 L* (1.5-6.6) 10^3/uL Lymphocytes # (Manual) 0.2 L (1.5-3.5) 10^3/uL Monocytes # (Manual) 0.0 (0.0-1.0) 10^3/uL Eosinophils # (Manual) 0.0 (0-0.7) 10^3/uL Basophils # (Manual) 0.0 (0-0.1) 10^3/uL Differential Comment MANUAL DIFFERENTIAL Platelet Estimate DECREASED (<130,000) (NORMAL) RBC Morph Micro Appear NORMAL APPEARANCE (NORMAL) Sodium 137 (135-145) mmol/L Potassium 3.6 (3.5-4.5) mmol/L Chloride 108 (101-111) mmol/L Carbon Dioxide 24 (21-32) mmol/L Anion Gap 5.0 L (6-13) BUN 10 (6-20) mg/dL Creatinine 0.4 L (0.6-1.3) mg/dL Estimated GFR (MDRD) 159 (>89) Glucose 105 H (74-104) mg/dL Calcium 7.8 L (8.5-10.3) mg/dL Phosphorus 1.9 L (2.5-5.0) mg/dL Albumin 2.9 L (3.2-5.5) g/dL ABX Reporting Has patient been on IV antibiotics over the past 48 hours?: Yes Sepsis Event Note (H) - Evaluation Current Stage of Sepsis: Sepsis - Sepsis Criteria Sepsis Criteria: Recorded Temperature greater than 38.3C or Less than 36C, Recorded Heart Rate greater than 90 bpm, WBC count greater than 12,000 or less than 4000 Assessment/Plan - Problem List (1) Neutropenic fever Impression: The patient has wounds on her right thumb and index fingers which are improving and the patient's fevers have resolved. MRSA swab is negative. Chest x-ray, blood cultures and UA were negative for infection. The source of her infection is likely the cellulitis on the right thumb and index finger, which again, is improving. I will continue her on IV zosyn. I will continue to check daily CBCs. ANC level has increased from 0.0 upon admission to 0.3. would like to see increase to 0.5 prior to dc (2) Cellulitis of right index finger Impression: The patient has some erythema and mild swelling at the tip of her index finger which is no longer tender to palpation and appears to be resolving. She also has a lesion on her right thumb that is no longer erythematous and is non-tender today. An x-ray of the index finger did not show any foreign body. I will continue IV zosyn. Nasal MRSA swab is negative. This is day #5 of treatment. (3) Pancytopenia Impression: Her pancytopenia is due to being in the cindy of her chemotherapy. Her hbg is 8.4 today after her second transfusion 11/09. She received a platelet transfusion 11/08 and her platelets are 46 today. (4) T-cell lymphoma Impression: She has completed 5 out of 6 cycles of CHOP therapy. (5) Mucositis (ulcerative) due to antineoplastic therapy Impression: She reports increased mouth pain with lesions on both sides of her mouth and painful swallowing. She also may have an element of thrush. She was started on nystatin swish and swallow on 11/08. She has Magic mouthwash available as needed. This is all due to her chemotherapy. improving with symptomatic treatment (6) Severe protein-calorie malnutrition Impression: I will continue to encourage good p.o. intake and supplements. (7) Hypertension Impression: Blood pressure is stable on no medications. We have held her amlodipine. (8) GERD (gastroesophageal reflux disease) Impression: Continue Protonix. (9) Elevated liver function tests Impression: Likely due to her acute illness. Stable (10) Hypokalemia Impression: Potassium has dropped from 4.2 upon admission to 3.4 repeleted yesterday, 3.6 today. BMP ordered for the AM (11) Hyponatremia Impression: Likely due to her acute illness. Resolved 11/09. today is 137.
[2023-11-12] MEDS ORDERED: MAGIC MOUTHWASH 120 ML BOTTLE PO PRN (10:45)
[2023-11-12] MEDS ORDERED: SODIUM CHLORIDE 0.9% 250 ML IV ONE (14:47)
[2023-11-12] MEDS: POTASSIUM PHOSPHATE 15 MMOL in SODIUM CHLORIDE 0.9% 250 ML IV ONE (16:02)
[2023-11-12] MEDS: MAGIC MOUTHWASH 120 ML BOTTLE PO PRN (17:49)
[2023-11-13 05:03] LABS: BASOPHILS % (AUTO) 2.7 %; HCT - HEMATOCRIT 24.4 % (37.0-47.0); HGB - HEMOGLOBIN 8.1 g/dL (12.0-16.0); LYMPHOCYTES % (AUTO) 17.3 %; MEAN CORPUSCULAR HEMOGLOBIN 28.6 pg (27.0-31.0); MEAN CORPUSCULAR HGB CONC 33.2 g/dL (32.0-36.0); MEAN CORPUSCULAR VOLUME 86.2 fL (81.0-99.0); NEUTROPHILS % (AUTO) 54.7 %; PLT - PLATELET COUNT 61 10^3/uL (130-450); RED BLOOD COUNT 2.83 10^6/uL (4.20-5.40); RED CELL DISTRIBUTION WIDTH 15.1 % (12.0-15.0)
[2023-11-13 05:19] LABS: ALBUMIN 2.9 g/dL (3.2-5.5); CALCIUM 7.8 mg/dL (8.5-10.3); CREATININE 0.4 mg/dL (0.6-1.3); PHOSPHORUS 2.7 mg/dL (2.5-5.0); POTASSIUM 3.8 mmol/L (3.5-4.5)
[2023-11-13 05:24] LABS: WHITE BLOOD COUNT 0.8 x10^3/uL (4.8-10.8)
[2023-11-13 05:25] LABS: SLIDE REVIEW? Indicated
[2023-11-13 05:27] LABS: ABNORMAL LYMPHS % (MANUAL) 0 %; BAND NEUTROPHILS % (MANUAL) 0 %
[2023-11-13 06:19] LABS: DIFFERENTIAL COMMENT MANUAL DIFFERENTIAL; LYMPHOCYTES # (MANUAL) 0.3 10^3/uL (1.5-3.5); LYMPHOCYTES % (MANUAL) 32 %; METAMYELOCYTES % (MANUAL) 4 %; NEUTROPHILS # (MANUAL) 0.5 10^3/uL (1.5-6.6)
[2023-11-13 06:20] LABS: PLATELET ESTIMATE, MANUAL DECREASED (<130,000) (NORMAL); PLATELET MORPHOLOGY NORMAL APPEARANCE (NORMAL); WBC MORPHOLOGY (MULTIPLE) NORMAL APPEARANCE (NORMAL)
--- NOTE | 2023-11-13 11:58 | PROVIDER PROGRESS NOTE ---
Subjective - Prog Note Date Prog Note Date: 11/13/23 - Subjective Pt reports feeling: Improved Subjective: Ms. Wright is a 68 y/o female on CHOP for t-cell lymphoma which was diagnosed 06/05/23 who was admitted for neutropenic fever with pancytopenia on 11/06. Her ANC was 0.0 on admission. She required a blood transfusion in the ED for an hbg of 5.2 on 11/06 and platelets on 11/08 for a platelet count of 21. She has painful mucositis making it hard to open her mouth. Her chest x-ray, UA and blood cultures negative. She has a painful small lesion on her right index finger and over the dorsal aspect of the DIP on her right thumb which she believes are spider bites. X-ray of the index finger did not identify any foreign body. It is likely this is the source of her infection and she is on zosyn with antibiotic ointment to the lesions. She reported a single episode of PRBPR with some blood in the toilet bowl and on the toilet paper and a small blood clot 11/09. She denies abdominal or rectal pain. She has a hx of hemorrhoids and has previously had rectal bleeding related to the hemorrhoids. She states she is constipated and believes this is likely an other ruptured hemorrhoid. She has not reported any additional events. Today, she is alert and sitting up in bed. She is pleasant and interactive, in a cheerful mood. She is feeling much improved, her mouth sores have healed, and she was able to eat her entire breakfast. She has a cough which started yesterday, non-productive, and reports some nasal congestion. She denies fever/chills, SOB, chest pain, headache, dizziness, nausea, diarrhea, or dysuria. The pain in her right thumb and index finger has resolved and the lesion on the pad of her index finger is healing but still present. Dr. Causey, oncology, rounded on her today and states he would like her to have her ANC >1000 for two days for discharge. She is currently at 800. She verbalized understanding of his recommendation. Current Medications - Current Medications Current Medications: Active Medications Generic Name Dose Route Start Last Admin Trade Name Freq PRN Reason Stop Dose Admin Acetaminophen 650 mg 11/07/23 21:10 11/13/23 06:30 Acetaminophen 325 Mg Tablet PO 650 mg Q4HR PRN Administration Pain 1 to 4, or Fever Acyclovir 400 mg 11/08/23 09:00 11/13/23 08:21 Acyclovir 200 Mg Capsule PO 400 mg Q12H JARED Administration Allopurinol 300 mg 11/08/23 09:00 11/13/23 08:22 Allopurinol 100 Mg Tablet PO 300 mg DAILY JARED Administration Benzonatate 100 mg 11/09/23 13:06 Benzonatate 100 Mg Capsule PO TID PRN Nausea / Vomiting Piperacillin Sod/Tazobactam 100 mls @ 25 mls/hr 11/10/23 18:00 11/13/23 10:04 Sod 3.375 gm/ Sodium Chloride IV 25 mls/hr Q8H JARED Administration Mirtazapine 7.5 mg 11/09/23 21:00 11/12/23 20:38 Mirtazapine 15 Mg Tablet PO 7.5 mg QPM JARED Administration Multi-Ingredient Mouthwash/Gargle 15 ml 11/12/23 10:45 Magic Mouthwash 120 Ml Bottle PO Q4H PRN PAIN 1-4 Multivitamins/Minerals 1 tab 11/09/23 08:00 11/13/23 08:21 Multivitamin W/Minerals Tablet PO 1 tab DAILYWM JARED Administration Neomycin/Polymyxin/Bacitracin 1 packet 11/09/23 14:00 11/13/23 08:22 Neomycin/Bacitra/Polymyx Oint Packet TOP 1 packet BID JARED Administration Nystatin 5 ml 11/09/23 14:00 11/13/23 08:21 Nystatin 260793 Units/5 Ml Udc PO 5 ml QID J[facility]ED Administration Ondansetron HCl 4 mg 11/07/23 21:10 Ondansetron 4 Mg/2 Ml Vial IVP Q6HR PRN Nausea / Vomiting Pantoprazole Sodium 40 mg 11/08/23 09:00 11/13/23 08:21 Pantoprazole 40 Mg Tablet PO 40 mg BID JARED Administration Polyethylene Glycol 17 gm 11/11/23 09:00 11/13/23 08:22 Polyethylene Glycol 3350 17 Gm Packet PO Not Given DAILY JARED Sodium Chloride 10 ml 11/07/23 21:10 Sodium Chloride Flush 0.9% 10 Ml Syringe IVP PRN PRN NEEDED PER PROVIDER ORDERS Sodium Chloride 10 ml 11/08/23 01:00 11/13/23 08:23 Sodium Chloride Flush 0.9% 10 Ml Syringe IVP 10 ml 0100,0900,1700 JARED Administration Zinc Sulfate 220 mg 11/10/23 09:00 11/13/23 08:21 Zinc Sulfate 220 Mg Capsule PO 220 mg DAILY JARED Administration Omeprazole 20 mg PO TID PRN 08/20/23 Magic Mouthwash 1 each PO TID PRN 08/21/23 allopurinoL [Allopurinol] 300 mg PO DAILY 08/21/23 amLODIPine [Norvasc] 10 mg PO DAILY 08/21/23 predniSONE [Prednisone] 100 mg PO UD 09/12/23 Benzonatate [Tessalon] 100 mg PO TID PRN 09/25/23 Ondansetron [Ondansetron Odt] 8 mg PO Q12H PRN 09/25/23 Acetaminophen [Tylenol Arthritis] 650 mg PO BID 11/08/23 Mirtazapine [Remeron] 7.5 mg PO QPM 11/08/23 Multivitamin,Therapeutic [Thera-Tabs] 1 each PO DAILY 11/08/23 Zinc Sulfate 220 mg PO DAILY 11/08/23 Objective - Vital Signs/Intake & Output Reviewed Vital Signs: Yes Vital Signs: Vital Signs x48h Temp Pulse Resp BP Pulse Ox 11/13/23 07:59 36.7 C 73 18 137/81 H 98 Intake & Output: Intake & Output 11/10/23 11/11/23 11/12/23 11/13/23 23:59 23:59 23:59 23:59 Intake Total 1190 1460 980.792 399.208 Output Total 200 Balance 990 1460 980.792 399.208 - Objective General Appearance: positive: No acute distress, Other (68 y/o female, alert and cheerful, seated in bed) Eyes Bilateral: positive: Normal inspection ENT: positive: No signs of dehydration. negative: Oral lesions Respiratory: positive: Chest non-tender, No respiratory distress, Rales (bibasilar light rales, likely atelectasis). negative: Wheezes, Rhonchi Cardiovascular: positive: Regular rate & rhythm, No murmur, No gallop Peripheral Pulses: 2+ Radial (R), 2+ Radial (L), 2+ Dorsalis pedis (R), 2+ Dorsalis pedis (L) Abdomen: positive: Non-tender, No organomegaly, Nml bowel sounds, No distention. negative: Guarding, Rebound Back: positive: Nml inspection Skin: positive: Color nml, No rash, Warm, Dry, Other (Punctate lesion with dry scaling pad of right index finger, non-tender, no erythema or swelling Dry patch of skin dorsal right thumb over the DIP, no erythema or tenderness) Neurologic/Psychiatric: positive: Oriented x3, CN's nml (2-12), Motor nml, Sen sation nml, Mood/affect nml - Lab Results Fish Bones: 11/13/23 04:34 11/13/23 04:34 Other Labs: Lab Results x24hrs 11/13/23 11/13/23 Range/Units 04:34 04:34 WBC 0.8 L* (4.8-10.8) x10^3/uL RBC 2.83 L (4.20-5.40) 10^6/uL Hgb 8.1 L (12.0-16.0) g/dL Hct 24.4 L (37.0-47.0) % MCV 86.2 (81.0-99.0) fL MCH 28.6 (27.0-31.0) pg MCHC 33.2 (32.0-36.0) g/dL RDW 15.1 H (12.0-15.0) % Plt Count 61 L (130-450) 10^3/uL MPV 11.0 H (7.9-10.8) fL Neut # (Auto) Not Reportable Lymph # (Auto) Not Reportable [place] # (Auto) Not Reportable Eos # (Auto) Not Reportable Baso # (Auto) Not Reportable Absolute Nucleated RBC Not Reportable Total Counted 25 Band Neuts % (Manual) 0 (0 - 10) % Abnorm Lymph % (Manual) 0 % Metamyelocytes % 4 H ( - 0) % Nucleated RBC % Not Reportable Neutrophils # (Manual) 0.5 L* (1.5-6.6) 10^3/uL Lymphocytes # (Manual) 0.3 L (1.5-3.5) 10^3/uL Monocytes # (Manual) 0.0 (0.0-1.0) 10^3/uL Eosinophils # (Manual) 0.0 (0-0.7) 10^3/uL Basophils # (Manual) 0.0 (0-0.1) 10^3/uL Differential Comment MANUAL DIFFERENTIAL Manual Slide Review Indicated WBC Morphology NORMAL APPEARANCE (NORMAL) Platelet Estimate DECREASED (<130,000) (NORMAL) Platelet Morphology NORMAL APPEARANCE (NORMAL) RBC Morph Micro Appear 1+ HYPOCHROMASIA (NORMAL) Sodium 138 (135-145) mmol/L Potassium 3.8 (3.5-4.5) mmol/L Chloride 108 (101-111) mmol/L Carbon Dioxide 26 (21-32) mmol/L Anion Gap 4.0 L (6-13) BUN 8 (6-20) mg/dL Creatinine 0.4 L (0.6-1.3) mg/dL Estimated GFR (MDRD) 159 (>89) Glucose 102 (74-104) mg/dL Calcium 7.8 L (8.5-10.3) mg/dL Phosphorus 2.7 (2.5-5.0) mg/dL Albumin 2.9 L (3.2-5.5) g/dL ABX Reporting Has patient been on IV antibiotics over the past 48 hours?: Yes Sepsis Event Note (H) - Evaluation Current Stage of Sepsis: Sepsis - Sepsis Criteria Sepsis Criteria: Recorded Temperature greater than 38.3C or Less than 36C, Recorded Heart Rate greater than 90 bpm, WBC count greater than 12,000 or less than 4000 Assessment/Plan - Problem List (1) Neutropenic fever Impression: The patient has wounds on her right thumb and index fingers which are improving and the patient's fevers have resolved. MRSA swab is negative. Chest x-ray, blood cultures and UA were negative for infection. The source of her infection is likely the cellulitis on the right thumb and index finger, which again, is improving. I will continue her on IV zosyn. I will continue to check daily CBCs. ANC level has increased to 0.[address] Causey, oncologist, rounded on her today and would like her ANC>1.0 (1,000) for two days before discharge. She has developed a cough and nasal congestion over the past two days with some light bibasilar rales. This is likely due to atelectasis but I cannot rule out new infection given her immunocompromised status. The zosyn will cover common respiratory and sinus bacteria. I have added mucinex and flonase to help with symptom management and will continue to monitor her for signs of new infection. (2) Cellulitis of right index finger Impression: The erythema, swelling, and pain on the pad of her right index finger have resolved. The erythematous and tender patch on her right thumb has resolved and is now a patch of dry skin. I will continue IV zosyn. Nasal MRSA swab is negative. This is day #7 of treatment. (3) Pancytopenia Impression: Her pancytopenia is due to being in the cindy of her chemotherapy. Her hbg is 8.1 today with a transfusion of RBCs on 11/06 and 11/09. She received a platelet transfusion 11/08 and her platelets have increased to 61 today. Her WBCs are now 0.8 and ANC is 0.5. It appears that she is past the cindy and her levels are increasing. (4) T-cell lymphoma Impression: She has completed 5 out of 6 cycles of CHOP therapy. (5) Mucositis (ulcerative) due to antineoplastic therapy Impression: She has mucositis with significant pain and difficulty speaking and swallowing. She was started on nystatin swish and swallow on 11/08 and has Magic mouthwash available as needed. This is all due to her chemotherapy. She reports the lesions have all resolved today and that she is able to eat without difficulty or pain. (6) Severe protein-calorie malnutrition Impression: I will continue to encourage good p.o. intake and supplements. (7) Hypertension Impression: Blood pressure is stable on no medications. We have held her amlodipine. (8) GERD (gastroesophageal reflux disease) Impression: Continue Protonix. (9) Elevated liver function tests Impression: Likely due to her acute illness. Stable. (10) Hypokalemia Impression: Resolved. Potassium dropped from 4.2 upon admission to 3.4 and was repleted. Currently 3.8 today. BMP ordered for the AM (11) Hyponatremia Impression: Likely due to her acute illness. Resolved 11/09. Today is 138.
[2023-11-13] MEDS ORDERED: guaiFENesin 100 MG/5 ML UDC PO PRN (14:12)
--- NOTE | 2023-11-13 15:47 | ONCOLOGY CONSULT ---
Oncology Consultation: Hematology Oncology New Consult Angie Wright : 1955 11/13/2023 DIAGNOSIS: T cell lymphoma Neutropenic fever Pancytopenia REASON FOR CONSULT: Neutropenic fever ONCOLOGIC HISTORY: 68-year-old woman initially presented with right flank pain, cervical adenopathy, decreased appetite, and weight loss. CT chest and abdomen (02/04/2023): Multiple enlarged axillary lymph nodes as well as some abdominal and pelvic lymph nodes. Ultrasound of the right axilla showed multiple enlarged lymph nodes concerning malignancy of known breast origin. Right axillary lymph node biopsy ): Consistent with dayo T follicular helper cell lymphoma. CT neck (06/07/2023): Prominent and mildly enlarged lymph nodes are seen throughout the neck. CT chest (06/08/2023): New and growing cervical and axillary adenopathy. Similar size and number of mediastinal lymph nodes. Resolved right upper lobe pneumonia. New infectious or inflammatory bronchiolitis of the right upper lobe. CT abdomen and pelvis (06/07/2023): Decreased size of the retroperitoneal and pelvic chain lymph nodes. Stable size of the inguinal chain lymph nodes. Increased size of the spleen (14.8 cm). Echocardiogram (06/13/2023): LVEF 55-60%. Labs: EBV PCR showed 55, 200 copies per mL. HIV, HCV and HBsAg were negative. Bone marrow biopsy (07/17/2023): Hypercellular marrow with morphological findings suspicious for marrow involvement by T-cell lymphoma (about 30 to 40% involvement). No evidence of acute leukemia, high-grade myelodysplasia, plasma cell neoplasm, or metastatic carcinoma. Flow cytometry: No abnormal T-cell population identified. No significant immunophenotypic abnormalities of myeloid cell population identified. No abnormal B-cell and plasma cell population identified. Storage iron present (23+); no increase in ring sideroblasts identified. Moderate to severe reticulin fibrosis (2-3+). Cytogenetics normal 46, XX, female karyotype. T-cell clonality results: Clonal T-cell receptorgamma chain gene rearrangement identified by PCR PET scan (07/24/2023): Extensive adenopathy including the cervical chain, supraclavicular fossa, axillary, internal mammary, mediastinal, retroperitoneal, central mesenteric, pelvic, and inguinal chain nodes. The spleen is enlarged measuring 13.5 cm. There is also scattered radiotracer uptake in the bones. L1: CHOP C1D1 on 08/09/2023 at [facility] C2D1 on 08/28/2023 C3D1 on 09/18/2023 Hospital admission (09/25/2023 - 09/28/2023): Neutropenic fever CT neck (10/04/2023): Positive response to treatment. Prior adenopathy has completely resolved. CT chest (10/03/2023): Axillary adenopathy is decreased in size. No enlarging nodes seen. Diffuse groundglass pulmonary opacity. No new or enlarging pulmonary nodules. CT abdomen and pelvis (10/03/2023): Resolved adenopathy. Resolved splenomegaly. C4D1 on 10/09/2023 C5D1 on 10/30/2023 Hospital admission (11/07/2023): Neutropenic fever. Prior Oncologist: Mitch Fountain MD [facility] Lymphoma specialist: Pepe Spears MD INTERVAL HISTORY: Ms Wright received C5 CHOP chemotherapy on 10/30/2023. She was admitted with neutropenic fever. She is receiving antibiotics. She reports fatigue. She denies fever, chills, rigor, cough, sputum, chest pain, or dyspnea. She denies nausea, vomiting, diarrhea, abdominal pain, or distension. Her appetite is stable. Her weight is stable. REVIEW OF SYSTEMS: General. No fever, chills, night sweats, or pruritus. HEENT. - No headache, earache, or sore throat. No epistaxis, visual complaints, or hearing loss. Respiratory. - No cough, sputum, hemoptysis, chest pain, wheezing, or dyspnea. Cardiac. - No chest pain, palpitations, exertional dyspnea, orthopnea, or pedal edema. Abdomen. - No nausea, vomiting, abdominal pain, distension, constipation, epistaxis, hematemesis, melena, or hematochezia. No nocturia, urinary urgency, frequency, dysuria or hematuria. Neurological. - No headache, weakness, slurred speech, visual changes, hearing loss, tinnitus, change in smell or taste, paresthesia, seizures, bladder or bowel incontinence. Extremities. - No pain or edema. No change in nails. Endocrine. - No polydipsia or weight gain. Hematology. No bleeding, excessive bruising, clotting, or anemia. Lymphatic. No masses in neck, armpits, abdomen or groin. PAST MEDICAL HISTORY: Denies PAST SURGICAL HISTORY: Tonsillectomy HSV infection Tubal ligation GYNECOLOGY HISTORY: ALLERGIES: Sulfa MEDICATIONS: Multivitamins Acetaminophen Acyclovir Allopurinol Benzonatate Nystatin Lidocaine Mirtazapine Magic mouth wash Pantoprazole Piperacillin/Tazobactam Polyethylene Glycol SOCIAL HISTORY: She lives alone. Tobacco: denies. Alcohol: denies FAMILY HISTORY: Father: melanoma Sister: Hodgkin lymphoma PHYSICAL EXAMINATION: The patient is an elderly woman in no acute distress. Vitals in chart Constitutional: HEENT: PERRL, EOMI, no pallor or scleral icterus. Oropharynx is moist without lesions. Neck is supple. JVP is not elevated. There is no palpable cervical, supraclavicular, or axillary adenopathy. Thyroid is normal. Chest Symmetrical. Non tender. No deformity. Lungs are clear to auscultation and percussion bilaterally. No rales, rhonchi, or wheezes. Cardiac examination reveals regular rate and rhythm with normal S1 and S2, No murmur or gallop. Abdomen is soft, non-distended, non-tender, without hepatosplenomegaly, masses, or ascites. Spine is non-tender. No costovertebral tenderness. Extremities reveal no calf tenderness or pedal edema. Neurological Alert, oriented in time place and person. Speech is normal. Cranial nerves II-XII grossly intact. Motor strength is 5/5 in all extremities. No focal motor deficits. Gait not assessed. Skin is warm, dry, with normal turgor. No rashes. Port-A-Cath does not show erythema or tenderness. LABORATORY: Reviewed and discussed. ASSESSMENT AND PLAN: (1). 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 IPI 2 ECOG performance status 1. She declined participation in a clinical trial at [facility]. L1: CHOP C1D1 on 08/09/2023 at [facility] C2D1 on 08/28/2023 C3D1 on 09/18/2023 C4D1 on 10/09/2023 C5D1 on 10/30/2023 She will be due for C6 on 11/20/2023. Labs reviewed and discussed. (2). Pancytopenia Etiology includes recent chemotherapy. Recommend neutropenic precautions. (3). Transfusion parameters Transfuse leukocyte reduced, CMV negative and irradiated blood products. Transfuse PRBCforHgb<7 or symptomatic anemia or active bleeding. Transfuse plateletsforcount<10,000 or active bleeding. (4). Neutropenic fever Blood and urine culture is negative so far. Chest radiograph (11/07/2023): No acute cardiopulmonary process. Source of infection attributed to cellulitis involving right thumb and index finger. Patient is receiving Zosyn. The patient was seen in the presence of her friend. The case was discussed with hospitalist, SASCHA Nelson. The total time spent 60 minutes. Chart review, External history review, Patient examination, independent test/result interpretation, Medication, test or procedure ordering, Patient counseling, Documentation, and Care coordination. All questions were answered to the patient's satisfaction. Clinical Data: Allergies Sulfa (Sulfonamide Antibiotics) Allergy (Verified 09/29/23 18:10) Anaphylaxis Home Medications Omeprazole 20 mg PO TID PRN 08/20/23 [History Last Taken 09/24/23] Magic Mouthwash 1 each PO TID PRN 08/21/23 [History Last Taken 09/24/23] allopurinoL [Allopurinol] 300 mg PO DAILY 08/21/23 [History Last Taken 09/24/23] amLODIPine [Norvasc] 10 mg PO DAILY 08/21/23 [History Last Taken 09/24/23] predniSONE [Prednisone] 100 mg PO UD 09/12/23 [History Last Taken Unknown] Benzonatate [Tessalon] 100 mg PO TID PRN 09/25/23 [History Last Taken Unknown] Ondansetron [Ondansetron Odt] 8 mg PO Q12H PRN 09/25/23 [History Last Taken Unknown] Acetaminophen [Tylenol Arthritis] 650 mg PO BID 11/08/23 [History Last Taken Unknown] Mirtazapine [Remeron] 7.5 mg PO QPM 11/08/23 [History Last Taken Unknown] Multivitamin,Therapeutic [Thera-Tabs] 1 each PO DAILY 11/08/23 [History Last Taken Unknown] Zinc Sulfate 220 mg PO DAILY 11/08/23 [History Last Taken Unknown] Vital Signs Temp Pulse Resp BP Pulse Ox O2 Flow Rate 36.7 C 73 18 137/81 H 98 0 11/13/23 07:59 11/13/23 07:59 11/13/23 07:59 11/13/23 07:59 11/13/23 07:59 11/12/23 11:34 Recent Lab Results 11/07/23 12:32: Crossmatch IS Only See Detail 11/11/23 04:59: WBC 0.3 L*, RBC 3.19 L, Hgb 9.1 L, Hct 26.8 L, MCV 84.0, MCH 28.5, MCHC 34.0, RDW 15.1 H, Plt Count 35 L*, MPV 10.2, Neut # (Auto) 0.2 L*, Lymph # (Auto) 0.1 L, [place] # (Auto) 0.0, Eos # (Auto) 0.0, Baso # (Auto) 0.0, Absolute Nucleated RBC 0.00, 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, 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 Neuts % (Manual) Not Reportable, Abnorm Lymph % (Manual) Not Reportable, Nucleated RBC % 0.0, Neutrophils # (Manual) Not Reportable, Lymphocytes # (Manual) Not Reportable, Monocytes # (Manual) Not Reportable, Eosinophils # (Manual) Not Reportable, Basophils # (Manual) Not Reportable, Differential Comment MANUAL=AUTO DIFF, Manual Slide Review Indicated, WBC Morphology NORMAL APPEARANCE, Platelet Estimate DECREASED (<130,000), Platelet Morphology NORMAL APPEARANCE, RBC Morph Micro Appear 1+ HYPOCHROMASIA 11/11/23 04:59: Sodium 137, Potassium 3.4 L, Chloride 106, Carbon Dioxide 27, Anion Gap 4.0 L, BUN 9, Creatinine 0.5 L, Estimated GFR (MDRD) 123, Glucose 96, Calcium 8.0 L, Phosphorus 2.5, Albumin 3.1 L 11/12/23 05:23: WBC 0.5 L*, RBC 2.88 L, Hgb 8.4 L, Hct 24.6 L, MCV 85.4, MCH 29.2, MCHC 34.1, RDW 15.3 H, Plt Count 46 L, MPV 10.9 H, Neut # (Auto) Not Reportable, Lymph # (Auto) Not Reportable, Scurry # (Auto) Not Reportable, Eos # (Auto) Not Reportable, Baso # (Auto) Not Reportable, Absolute Nucleated RBC Not Reportable, Total Counted 25, Band Neuts % (Manual) 4, Abnorm Lymph % (Manual) 0, Nucleated RBC % Not Reportable, Neutrophils # (Manual) 0.3 L*, Lymphocytes # (Manual) 0.2 L, Monocytes # (Manual) 0.0, Eosinophils # (Manual) 0.0, Basophils # (Manual) 0.0, Differential Comment MANUAL DIFFERENTIAL, Platelet Estimate DECREASED (<130,000), RBC Morph Micro Appear NORMAL APPEARANCE 11/12/23 05:23: Sodium 137, Potassium 3.6, Chloride 108, Carbon Dioxide 24, Anion Gap 5.0 L, BUN 10, Creatinine 0.4 L, Estimated GFR (MDRD) 159, Glucose 105 H, Calcium 7.8 L, Phosphorus 1.9 L, Albumin 2.9 L 11/13/23 04:34: WBC 0.8 L*, RBC 2.83 L, Hgb 8.1 L, Hct 24.4 L, MCV 86.2, MCH 28.6, MCHC 33.2, RDW 15.1 H, Plt Count 61 L, MPV 11.0 H, Neut # (Auto) Not Reportable, Lymph # (Auto) Not Reportable, [place]urry # (Auto) Not Reportable, Eos # (Auto) Not Reportable, Baso # (Auto) Not Reportable, Absolute Nucleated RBC Not Reportable, Total Counted 25, Band Neuts % (Manual) 0, Abnorm Lymph % (Manual) 0, Metamyelocytes % 4 H, Nucleated RBC % Not Reportable, Neutrophils # (Manual) 0.5 L*, Lymphocytes # (Manual) 0.3 L, Monocytes # (Manual) 0.0, Eosinophils # (Manual) 0.0, Basophils # (Manual) 0.0, Differential Comment MANUAL DIFFERENTIAL, Manual Slide Review Indicated, WBC Morphology NORMAL APPEARANCE, Platelet Estimate DECREASED (<130,000), Platelet Morphology NORMAL APPEARANCE, RBC Morph Micro Appear 1+ HYPOCHROMASIA 11/13/23 04:34: Sodium 138, Potassium 3.8, Chloride 108, Carbon Dioxide 26, Anion Gap 4.0 L, BUN 8, Creatinine 0.4 L, Estimated GFR (MDRD) 159, Glucose 102, Calcium 7.8 L, Phosphorus 2.7, Albumin 2.9 L
[2023-11-13] MEDS: AMOX/CLAV 875 MG/125 MG TABLET PO SCH (17:10)
[2023-11-13] MEDS: FLUTICASONE NASAL SPRAY NAS SCH (22:04)
[2023-11-14 06:05] LABS: BASOPHILS % (AUTO) 0.9 %; EOSINOPHILS % (AUTO) 0.9 %; HCT - HEMATOCRIT 25.9 % (37.0-47.0); HGB - HEMOGLOBIN 8.8 g/dL (12.0-16.0); LYMPHOCYTES % (AUTO) 10.5 %; MEAN CORPUSCULAR HEMOGLOBIN 29.4 pg (27.0-31.0); MEAN CORPUSCULAR VOLUME 86.6 fL (81.0-99.0); MEAN PLATELET VOLUME 10.4 fL (7.9-10.8); MONOCYTES % (AUTO) 17.5 %; NEUTROPHILS % (AUTO) 60.6 %; PLT - PLATELET COUNT 91 10^3/uL (130-450); RED BLOOD COUNT 2.99 10^6/uL (4.20-5.40); RED CELL DISTRIBUTION WIDTH 14.9 % (12.0-15.0)
[2023-11-14 06:16] LABS: WHITE BLOOD COUNT 1.1 x10^3/uL (4.8-10.8)
[2023-11-14 06:17] LABS: ALBUMIN 3.1 g/dL (3.2-5.5); CALCIUM 8.6 mg/dL (8.5-10.3); CREATININE 0.4 mg/dL (0.6-1.3); PHOSPHORUS 2.9 mg/dL (2.5-5.0); POTASSIUM 3.9 mmol/L (3.5-4.5)
[2023-11-14 06:39] LABS: ABNORMAL LYMPHS % (MANUAL) 1 %; BAND NEUTROPHILS % (MANUAL) 2 %; DIFFERENTIAL COMMENT MANUAL DIFFERENTIAL; LYMPHOCYTES # (MANUAL) 0.4 10^3/uL (1.5-3.5); LYMPHOCYTES % (MANUAL) 31 %; METAMYELOCYTES % (MANUAL) 2 %; MONOCYTES # (MANUAL) 0.2 10^3/uL (0.0-1.0); MYELOCYTES % (MANUAL) 2 %; NEUTROPHILS # (MANUAL) 0.6 10^3/uL (1.5-6.6); PLATELET ESTIMATE, MANUAL DECREASED (<130,000) (NORMAL); RBC MORPHOLOGY (MULTIPLE) NORMAL APPEARANCE (NORMAL)
[2023-11-14] MEDS: BENZONATATE 100 MG CAPSULE PO PRN (08:18)
--- NOTE | 2023-11-14 17:54 | PROVIDER PROGRESS NOTE ---
Subjective - Prog Note Date Prog Note Date: 11/14/23 Prog Note Time: 17:54 - Subjective Pt reports feeling: Improved Subjective: She is bored. She feels well and is tolerating a diet. She wants to go home. She has no complaints. Current Medications - Current Medications Current Medications: Medications Guaifenesin (Guaifenesin 100 Mg/5 Ml Udc) 200 mg PO Q4H PRN PRN Reason: Cold Symptons Neomycin/Polymyxin/Bacitracin (Neomycin/Bacitra/Polymyx Oint Packet) 1 packet TOP BID [facility] Last Admin: 11/14/23 08:06 Dose: 1 packet Acetaminophen (Acetaminophen 325 Mg Tablet) 650 mg PO Q4HR PRN PRN Reason: Pain 1 to 4, or Fever Last Admin: 11/13/23 06:30 Dose: 650 mg Acyclovir (Acyclovir 200 Mg Capsule) 400 mg PO Q12H [facility] Last Admin: 11/14/23 08:07 Dose: 400 mg Allopurinol (Allopurinol 100 Mg Tablet) 300 mg PO DAILY [facility] Last Admin: 11/14/23 08:06 Dose: 300 mg Amoxicillin/Clavulanate Potassium (Amox/Clav 875 Mg/125 Mg Tablet) 1 tab PO BID JARED Stop: 11/17/23 09:01 Last Admin: 11/14/23 08:06 Dose: 1 tab Benzonatate (Benzonatate 100 Mg Capsule) 100 mg PO TID PRN PRN Reason: Nausea / Vomiting Last Admin: 11/14/23 08:18 Dose: 100 mg Fluticasone Propionate (Fluticasone Nasal [place]) 1 sprays TR DAILY [facility] Last Admin: 11/14/23 08:06 Dose: 1 spr Heparin Sodium (Beef Lung) (Heparin Flush 50 Units/5 Ml Syringe) 30 - 50 unit IVP PRN PRN PRN Reason: Port Protocol (<24 hours) Mirtazapine (Mirtazapine 15 Mg Tablet) 7.5 mg PO QPM [facility] Last Admin: 11/13/23 22:05 Dose: 7.5 mg Multi-Ingredient Mouthwash/Gargle (Magic Mouthwash 120 Ml Bottle) 15 ml PO Q4H PRN PRN Reason: PAIN 1-4 Multivitamins/Minerals (Multivitamin W/Minerals Tablet) 1 tab PO DAILYWM [facility] Last Admin: 11/14/23 08:06 Dose: 1 tab Ondansetron HCl (Ondansetron 4 Mg/2 Ml Vial) 4 mg IVP Q6HR PRN PRN Reason: Nausea / Vomiting Pantoprazole Sodium (Pantoprazole 40 Mg Tablet) 40 mg PO BID [facility] Last Admin: 11/14/23 08:07 Dose: 40 mg Polyethylene Glycol (Polyethylene Glycol 3350 17 Gm Packet) 17 gm PO DAILY [facility] Last Admin: 11/14/23 07:56 Dose: Not Given Zinc Sulfate (Zinc Sulfate 220 Mg Capsule) 220 mg PO DAILY [facility] Last Admin: 11/14/23 08:06 Dose: 220 mg Objective - Vital Signs/Intake & Output Reviewed Vital Signs: Yes Vital Signs: Vital Signs x48h Temp Pulse Resp BP Pulse Ox 11/14/23 16:00 36.7 C 96 20 143/99 H 99 Intake & Output: Intake & Output 11/11/23 11/12/23 11/13/23 11/14/23 23:59 23:59 23:59 23:59 Intake Total 1460 021.850 6799.208 420 Balance 1460 320.521 8310.208 420 - Objective General Appearance: positive: No acute distress, Alert Eyes Bilateral: positive: Normal inspection ENT: positive: ENT inspection nml, No signs of dehydration Respiratory: positive: No respiratory distress, Breath sounds nml Cardiovascular: positive: Regular rate & rhythm Abdomen: positive: Non-tender Skin: positive: Color nml, No rash Extremities: positive: Non-tender Neurologic/Psychiatric: positive: Oriented x3 - Lab Results Fish Bones: 11/14/23 05:50 11/14/23 05:50 Other Labs: Lab Results x24hrs 11/14/23 11/14/23 Range/Units 05:50 05:50 WBC 1.1 L* (4.8-10.8) x10^3/uL RBC 2.99 L (4.20-5.40) 10^6/uL Hgb 8.8 L (12.0-16.0) g/dL Hct 25.9 L (37.0-47.0) % MCV 86.6 (81.0-99.0) fL MCH 29.4 (27.0-31.0) pg MCHC 34.0 (32.0-36.0) g/dL RDW 14.9 (12.0-15.0) % Plt Count 91 L (130-450) 10^3/uL MPV 10.4 (7.9-10.8) fL Neut # (Auto) Not Reportable Lymph # (Auto) Not Reportable [place] # (Auto) Not Reportable Eos # (Auto) Not Reportable Baso # (Auto) Not Reportable Absolute Nucleated RBC Not Reportable Total Counted 100 Band Neuts % (Manual) 2 (0 - 10) % Abnorm Lymph % (Manual) 1 % Metamyelocytes % 2 H ( - 0) % Myelocytes % 2 H ( - 0) % Nucleated RBC % Not Reportable Neutrophils # (Manual) 0.6 L (1.5-6.6) 10^3/uL Lymphocytes # (Manual) 0.4 L (1.5-3.5) 10^3/uL Monocytes # (Manual) 0.2 (0.0-1.0) 10^3/uL Eosinophils # (Manual) 0.0 (0-0.7) 10^3/uL Basophils # (Manual) 0.0 (0-0.1) 10^3/uL Differential Comment MANUAL DIFFERENTIAL Platelet Estimate DECREASED (<130,000) (NORMAL) RBC Morph Micro Appear NORMAL APPEARANCE (NORMAL) Sodium 137 (135-145) mmol/L Potassium 3.9 (3.5-4.5) mmol/L Chloride 108 (101-111) mmol/L Carbon Dioxide 25 (21-32) mmol/L Anion Gap 4.0 L (6-13) BUN 11 (6-20) mg/dL Creatinine 0.4 L (0.6-1.3) mg/dL Estimated GFR (MDRD) 159 (>89) Glucose 105 H (74-104) mg/dL Calcium 8.6 (8.5-10.3) mg/dL Phosphorus 2.9 (2.5-5.0) mg/dL Albumin 3.1 L (3.2-5.5) g/dL ABX Reporting Has patient been on IV antibiotics over the past 48 hours?: Yes Sepsis Event Note (H) - Evaluation Current Stage of Sepsis: Sepsis - Sepsis Criteria Sepsis Criteria: WBC count greater than 12,000 or less than 4000 Assessment/Plan - Problem List (1) Neutropenic fever Impression: The patient has wounds on her right thumb and index fingers which are improving and the patient's fevers have resolved. MRSA swab is negative. Chest x-ray, blood cultures and UA were negative for infection. The source of her infection is likely the cellulitis on the right thumb and index fingerhas resolved. I have de escalated antibiotics to Augmentin. . I will continue to check daily CBCs. ANC level has increased to 0.[address] Causey, oncologist, rounded on her today and would like her ANC>1.0 (1,000) for two days before discharge. I have concerns about her maria esther an infection while admitted. She has developed a cough and nasal congestion over the past two days with some light bibasilar rales. This is likely due to atelectasis but I cannot rule out new infection given her immunocompromised status. The augmentin will cover common respiratory and sinus bacteria. I have added mucinex and flonase to help with symptom management and will continue to monitor her for signs of new infection. (2) Cellulitis of right index finger Impression: The erythema, swelling, and pain on the pad of her right index finger have resolved. The erythematous and tender patch on her right thumb has resolved and is now a patch of dry skin. I will continue augmentin for a total of 14 days of abx treatment. Nasal MRSA swab is negative. This is day #7 of treatment. (3) Pancytopenia Impression: Her pancytopenia is due to being in the cindy of her chemotherapy. It appears that she is past the cindy and her levels are increasing. Laboratory Tests 11/14/23 05:50 WBC 1.1 L* Hgb 8.8 L Plt Count 91 L Neutrophils # (Manual) 0.6 L (4) T-cell lymphoma Impression: She has completed 5 out of 6 cycles of CHOP therapy. (5) Mucositis (ulcerative) due to antineoplastic therapy Impression: Much improved. She is tolerating a diet. She requested DC see the nystatin. She is using her Magic mouthwash less and less (6) Severe protein-calorie malnutrition Impression: I will continue to encourage good p.o. intake and supplements. She is eating well while she is here. She understands the importance of maintaining good nutrition for healing (7) Hypertension Impression: Blood pressure is stable on no medications. We have held her amlodipine.Likely will discharge her to home without blood pressure medication. (8) GERD (gastroesophageal reflux disease) Impression: Continue Protonix. (9) Elevated liver function tests Impression: Likely due to her acute illness. I am repeating her CMP prior to discharge. (10) Hypokalemia Impression: Resolved. Potassium dropped from 4.2 upon admission to 3.4 and was repleted. Currently 3.9 today. CMP ordered for the AM (11) Hyponatremia Impression: Likely due to her acute illness. Resolved 11/09. Today is 137.
[2023-11-15 06:01] LABS: BASOPHILS % (AUTO) 1.2 %; HCT - HEMATOCRIT 26.2 % (37.0-47.0); HGB - HEMOGLOBIN 8.8 g/dL (12.0-16.0); LYMPHOCYTES % (AUTO) 11.8 %; MEAN CORPUSCULAR HEMOGLOBIN 29.1 pg (27.0-31.0); MEAN CORPUSCULAR HGB CONC 33.6 g/dL (32.0-36.0); MEAN CORPUSCULAR VOLUME 86.8 fL (81.0-99.0); MONOCYTES % (AUTO) 19.9 %; NEUTROPHILS % (AUTO) 51.6 %; PLT - PLATELET COUNT 103 10^3/uL (130-450); RED BLOOD COUNT 3.02 10^6/uL (4.20-5.40); RED CELL DISTRIBUTION WIDTH 14.9 % (12.0-15.0)
[2023-11-15 06:09] LABS: WHITE BLOOD COUNT 1.6 x10^3/uL (4.8-10.8)
[2023-11-15 06:15] LABS: ALBUMIN 3.1 g/dL (3.2-5.5); ALBUMIN/GLOBULIN RATIO 1.4 (1.0-2.2); BILIRUBIN,TOTAL 0.7 mg/dL (0.2-1.0); CALCIUM 8.7 mg/dL (8.5-10.3); CREATININE 0.4 mg/dL (0.6-1.3); POTASSIUM 3.8 mmol/L (3.5-4.5); TOTAL PROTEIN 5.3 g/dL (6.4-8.9)
[2023-11-15 06:34] LABS: ABNORMAL LYMPHS % (MANUAL) 4 %; BAND NEUTROPHILS % (MANUAL) 2 %; LYMPHOCYTES # (MANUAL) 0.6 10^3/uL (1.5-3.5); LYMPHOCYTES % (MANUAL) 32 %; METAMYELOCYTES % (MANUAL) 1 %; MONOCYTES # (MANUAL) 0.1 10^3/uL (0.0-1.0); MYELOCYTES % (MANUAL) 3 %; NEUTROPHILS # (MANUAL) 0.8 10^3/uL (1.5-6.6)
[2023-11-15 06:35] LABS: DIFFERENTIAL COMMENT MANUAL DIFFERENTIAL; PLATELET ESTIMATE, MANUAL DECREASED (<130,000) (NORMAL); RBC MORPHOLOGY (MULTIPLE) NORMAL APPEARANCE (NORMAL)
[2023-11-15 08:05] VITALS: O2SAT 97
--- NOTE | 2023-11-15 13:07 | Discharge Plan ---
Discharge Plan Problem Reviewed?: Yes Disposition: Home, Self Care Condition: Good Prescriptions: Amox/Clav 875/125 [Augmentin 875/125 Tab] 1 tab PO BID 5 Days #10 tab Diet: Regular Activity Restrictions: No Restrictions Shower Restrictions: No Driving Restrictions: No Weight Bearing: Full Weight Instruction Topics: Neutropenia Health Concerns: You came into the hospital because your white blood cell count got so low that your body was unable to mount an immune response. We think that the fever was due to an infection because your immune system was so poor. I am sending you home to complete a course of antibiotics because I am concerned about recurrence of the symptoms. However, I think the safest place for you is at home where you are not exposed to potential infectious agents. It is fine for you to engage in the activities that you normally do. Just take it easy and make sure you get plenty of rest. Follow-up with the oncology clinic either this afternoon or first thing Saturday to find out when they want your next labs drawn and when they think they might be ready to do your next cycle of chemo Make sure you continue to eat and drink. Once your mouth got better you have done a good job with your oral intake here in the hospital Plan of Treatment: - finish antibiotics - make sure to eat a healthy diet - oncology followup Follow-Up Care: [facility] [facility] - [facility] No Smoking: If you smoke, Please STOP! Call for help. Follow-up with: ANANT MCKNIGHT PA-C [Primary Care Provider] - Chiki Causey MD [Provider Admit Priv/Credential] -
--- NOTE | 2023-11-15 13:24 | DISCHARGE SUMMARY ---
"Discharge Summary Admit Date: 11/07/23 Discharge Date: 11/15/23 Discharging Provider: Tawny Bravo PA-C Primary Care Provider: none, Sees Oncology, Dr Causey Code Status: Do Not Attempt Resuscitation Condition at Discharge: Good Discharge Disposition: 01 Home, Self Care - DIAGNOSES Admission Diagnoses: Neutropenic fever Anemia Thrombocytopenia T-cell lymphoma Hypertension GERD DNR status Discharge Diagnoses with Status of Each Condition: (1) Neutropenic fever Impression: The patient had wounds on her right thumb and index fingers which are improving and the patient's fevers have resolved. MRSA swab is negative. Chest x-ray, blood cultures and UA were negative for infection. The source of her infection is likely the cellulitis on the right thumb and index finger, which again, improved markedly. Her ANC has shown a steady trend of improvement. (2) Cellulitis of right index finger Impression: The erythema, swelling, and pain on the pad of her right index finger have resolved. The erythematous and tender patch on her right thumb has resolved and is now a patch of dry skin.Zosyn was changed over to Augmentin before discharge. She will be continued on Augmentin for 10 days post discharge. Nasal MRSA swab is negative. (3) Pancytopenia Impression: Her pancytopenia is due to being in the cindy of her chemotherapy. Her hbg is 8.1 today with a transfusion of RBCs on 11/06 and 11/09. She received a platelet transfusion 11/08 and her platelets have increased to 61 today. Her WBCs are now 0.8 and ANC is 0.5. It appears that she is past the cindy and her levels are increasing. (4) T-cell lymphoma Impression: She has completed 5 out of 6 cycles of CHOP therapy. (5) Mucositis (ulcerative) due to antineoplastic therapy Impression: She has mucositis with significant pain and difficulty speaking and swallowing. She was started on nystatin swish and swallow on 11/08 and has Magic mouthwash available as needed. This is all due to her chemotherapy. She reports the lesions have all resolved today and that she is able to eat without difficulty or pain. (6) Severe protein-calorie malnutrition Impression: I will continue to encourage good p.o. intake and supplements. (7) Hypertension Impression: Blood pressure is stable on no medications. We have held her amlodipine. I have advised her to hold this on discharge (8) GERD (gastroesophageal reflux disease) Impression: Continue Protonix. (9) Elevated liver function tests Impression: Likely due to her acute illness. Stable. (10) Hypokalemia Impression: Resolved. Potassium dropped from 4.2 upon admission to 3.4 and was repleted. Currently 3.8 today. She will continue to monitor as outpatient. (11) Hyponatremia Impression: Likely due to her acute illness. Resolved 11/09. - HPI History of Present Illness: Ms Wright is a 68 yo F with history of T cell lymphoma associated with EBV, currently on treatment with CHOP, last infusion 8 days ago on 10/29 (cycle 5). She presents to the ER with complaint of fever and outpatient lab work showed neutropenia and severe anemia Hgb 5.2. Patient reports she first noted fever 101.6 last night, this morning T 101. She usually gets low grade fevers ~T 100 for which she takes tylenol once daily. She denies chest pain, nausea, vomiting, diarrhea, constipation, dysuria, hematuria, hematochezia, melena, hematemesis. She has a sore throat related to oral candidiasis for which she is on Magic mouthwash, did not tolerate fluconazole. She has a dry cough, this is not new for her. Currently she feels ok, but fatigued. Denies dizziness or head aches. Hospital beds were not available earlier in the day, her transfusion was initiated in the ER, first unit was tolerated well, prior to the second unit she had fever of 38.1, and then 15 minutes after initiating transfusion her temperature kevin to 39.1. Transfusion was stopped and transfusion reaction protocol was initiated with pathologist. Patient had an admission for neutropenic fever in September after her previous CHOP cycle. - CONSULTS | PROCEDURES Consultations: Oncology, Dr Causey Procedures: Finger XR :no abnormality CXR : no acute cardiopulmonary process - HOSPITAL COURSE Hospital Course: 68-year-old female with T-cell lymphoma who presents to the emergency department with a neutropenic fever and white blood cell count of 0.1 with an undetectable ANC. She was found to have a hand cellulitis. She was given broad-spectrum antibiotics. Her neutrophil count came up to 500 by hospital day 4. Oncology was consulted, as she is followed by oncology service here at [facility]. Aside from observing her blood counts no other recommendations were made. She had severe mucositis this was treated symptomatically along with some nystatin and improved to the point that she was able to eat a regular diet. She does have severe protein calorie malnutrition due to weight loss over the course of her illness. We were able to observe her taking in 100% of her meals and snacks. She was discharged home in stable condition in the care of friends and family. She will follow close with oncology. - ALLERGIES Allergies/Adverse Reactions: Allergies Allergy/AdvReac Type Severity Reaction Status Date / Time Sulfa (Sulfonamide Allergy Anaphylaxis Verified 09/29/23 18:10 Antibiotics) - MEDICATIONS Home Medications: Ambulatory Orders Medication Instructions Recorded Confirmed Omeprazole 20 mg PO TID PRN 08/20/23 11/08/23 Magic Mouthwash 1 each PO TID PRN 08/21/23 11/08/23 allopurinoL [Allopurinol] 300 mg PO DAILY 08/21/23 11/08/23 amLODIPine [Norvasc] 10 mg PO DAILY 08/21/23 11/08/23 predniSONE [Prednisone] 100 mg PO UD 09/12/23 11/08/23 Acyclovir 400 mg PO BID 30 Days #60 tablet 09/18/23 11/08/23 Prochlorperazine [Compazine] 10 mg PO Q6H 10 Days #30 tablet 09/18/23 11/08/23 Benzonatate [Tessalon] 100 mg PO TID PRN 09/25/23 11/08/23 Ondansetron [Ondansetron Odt] 8 mg PO Q12H PRN 09/25/23 11/08/23 Acetaminophen [Tylenol Arthritis] 650 mg PO BID 11/08/23 11/08/23 Mirtazapine [Remeron] 7.5 mg PO QPM 11/08/23 11/08/23 Multivitamin,Therapeutic 1 each PO DAILY 11/08/23 11/08/23 [Thera-Tabs] Zinc Sulfate 220 mg PO DAILY 11/08/23 11/08/23 Amox/Clav 875/125 [Augmentin 1 tab PO BID 5 Days #10 tab 11/15/23 875/125 Tab] Fluticasone [Flonase] 1 sprays TR DAILY each 11/15/23 Multivitamin W/Minerals [Theragran 1 tab PO DAILYWM tab 09/13/24 M] - PHYSICAL EXAM AT DISCHARGE General Appearance: positive: No acute distress Eyes Bilateral: positive: Normal inspection Neck: positive: Nml inspection Respiratory: positive: Breath sounds nml Cardiovascular: positive: Regular rate & rhythm Abdomen: positive: No distention Skin: positive: Color nml Extremities: positive: Non-tender, No pedal edema Neurologic/Psychiatric: positive: Oriented x3 - LABS Result Diagrams: 11/15/23 05:45 11/15/23 05:45 - SEPSIS Current Stage of Sepsis: Sepsis Sepsis Criteria: WBC count greater than 12,000 or less than 4000 - FOLLOW UP Follow Up: oncology, Dr Causey She has no PCP - TIME SPENT Time Spent in Discharge (Minutes): 45"
[2023-11-15 16:11] VITALS: BP 139/96
== END 2023-11-15 16:45 | disposition home or self-care (01) | DRG 808 ==
LOC: ED 11:29 → MS2 21:10
PROVIDERS: ADMIT Student in an Organized Health Care Education/Training Program; ATTEND Physician Assistant Medical
PROC: 30233N1 Transfusion of Nonautologous Red Blood Cells into Peripheral Vein, Percutaneous Approach (ICD-10-PCS; principal; 2023-11-07)
DX: D70.1 Agranulocytosis secondary to cancer chemotherapy (principal); D61.810 Antineoplastic chemotherapy induced pancytopenia; A41.9 Sepsis, unspecified organism; E43 Unspecified severe protein-calorie malnutrition; R07.9 Chest pain, unspecified; C91.50 Adult T-cell lymphoma/leukemia (HTLV-1-associated) not having achieved remission; D69.59 Other secondary thrombocytopenia; E87.1 Hypo-osmolality and hyponatremia; B37.0 Candidal stomatitis; L03.119 Cellulitis of unspecified part of limb; R50.81 Fever presenting with conditions classified elsewhere; D64.81 Anemia due to antineoplastic chemotherapy; T45.1X5A Adverse effect of antineoplastic and immunosuppressive drugs, initial encounter; D69.6 Thrombocytopenia, unspecified; R00.0 Tachycardia, unspecified; I10 Essential (primary) hypertension; K21.9 Gastro-esophageal reflux disease without esophagitis; K12.31 Oral mucositis (ulcerative) due to antineoplastic therapy; R79.89 Other specified abnormal findings of blood chemistry; E87.6 Hypokalemia; R05.8 Other specified cough; R45.1 Restlessness and agitation; K59.00 Constipation, unspecified; Z66 Do not resuscitate; Z79.899 Other long term (current) drug therapy
CPT/HCPCS: 36415; 36430; 71045; 73140; 80053; 80069; 81003; 83735; 85025; 86850; 86900; 86901; 86920; 87040; 87640; 93307; 96365; 96367; 96375; 99215; 99285; A9270; J0131; J1200; P9037; P9040; 81001; 87081; 87086

== ENCOUNTER 2023-11-20 00:25 | Emergency (ER) | payer MEDICARE ==
[2023-11-20 02:43] LABS: BASOPHILS % (AUTO) 0.3 %; HCT - HEMATOCRIT 22.2 % (37.0-47.0); HGB - HEMOGLOBIN 7.5 g/dL (12.0-16.0); LYMPHOCYTES % (AUTO) 15.5 %; MEAN CORPUSCULAR HEMOGLOBIN 30.6 pg (27.0-31.0); MEAN CORPUSCULAR HGB CONC 33.8 g/dL (32.0-36.0); MEAN CORPUSCULAR VOLUME 90.6 fL (81.0-99.0); MEAN PLATELET VOLUME 9.6 fL (7.9-10.8); MONOCYTES % (AUTO) 20.8 %; NEUTROPHILS % (AUTO) 54.5 %; PLT - PLATELET COUNT 147 10^3/uL (130-450); RED BLOOD COUNT 2.45 10^6/uL (4.20-5.40); RED CELL DISTRIBUTION WIDTH 17.2 % (12.0-15.0); WHITE BLOOD COUNT 3.4 x10^3/uL (4.8-10.8)
[2023-11-20 02:46] LABS: ABNORMAL LYMPHS % (MANUAL) 0 %
[2023-11-20 02:59] LABS: ALBUMIN 3.4 g/dL (3.2-5.5); ALBUMIN/GLOBULIN RATIO 1.4 (1.0-2.2); BILIRUBIN,TOTAL 0.9 mg/dL (0.2-1.0); CALCIUM 8.7 mg/dL (8.5-10.3); CREATININE 0.6 mg/dL (0.6-1.3); POTASSIUM 3.6 mmol/L (3.5-4.5); TOTAL PROTEIN 5.8 g/dL (6.4-8.9)
[2023-11-20 03:06] LABS: BILIRUBIN,URINE NEGATIVE (NEGATIVE); GLUCOSE, URINE (UA) NEGATIVE (NEGATIVE); KETONES,URINE (UA) NEGATIVE (NEGATIVE); LEUKOCYTE ESTERASE, URINE NEGATIVE (NEGATIVE); NITRITE,URINE NEGATIVE (NEGATIVE); OCCULT BLOOD,URINE NEGATIVE (NEGATIVE); PROTEIN,URINE NEGATIVE (NEGATIVE); UROBILINOGEN,URINE 0.2 (NORMAL) E.U./dL (NORMAL)
[2023-11-20 03:08] LABS: BAND NEUTROPHILS % (MANUAL) 6 %; BASOPHILS % (MANUAL) 1 %; DIFFERENTIAL COMMENT MANUAL DIFFERENTIAL; LYMPHOCYTES # (MANUAL) 0.8 10^3/uL (1.5-3.5); LYMPHOCYTES % (MANUAL) 23 %; METAMYELOCYTES % (MANUAL) 1 %; MONOCYTES # (MANUAL) 0.4 10^3/uL (0.0-1.0); MYELOCYTES % (MANUAL) 1 %; NEUTROPHILS # (MANUAL) 2.1 10^3/uL (1.5-6.6); PLATELET ESTIMATE, MANUAL NORMAL (130-450,000) (NORMAL); RBC MORPHOLOGY (MULTIPLE) NORMAL APPEARANCE (NORMAL)
[2023-11-20 03:09] LABS: CLARITY,URINE CLEAR (CLEAR)
--- NOTE | 2023-11-20 03:12 | ED Physician Documentation ---
PD HPI URI - Stated complaint Stated Complaint: FEVER/GLF - Chief complaint Chief Complaint: Fever - History obtained from History obtained from: Patient - History of Present Illness Timing - onset: Today Timing duration: Hours Timing details: Abrupt onset, Still present Associated symptoms: Chills, Rhinorrhea, Dry cough. No: Productive cough, Dyspnea, NVD Contributing factors: Sick contact (was hospitalized for neutropenic fever recently and discharge just few days ago.), Immunocompromised. 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 PROCESSING SCIENTIST: None : None HEENT: None Psych: None Musculoskeletal: None Derm: None - Past Surgical History Past Surgical History: Yes /FOOD PROCESSING SCIENTIST: Tubal ligation, Breast reduction HEENT: Tonsil/Adenoidectomy - Present Medications Home Medications: Ambulatory Orders Medication Instructions Recorded Confirmed Omeprazole 20 mg PO TID PRN 08/20/23 11/20/23 Magic Mouthwash 1 each PO TID PRN 08/21/23 11/20/23 predniSONE [Prednisone] 100 mg PO UD 09/12/23 11/20/23 Acyclovir 400 mg PO BID 30 Days #60 tablet 09/18/23 11/08/23 Prochlorperazine [Compazine] 10 mg PO Q6H 10 Days #30 tablet 09/18/23 11/08/23 Benzonatate [Tessalon] 100 mg PO TID PRN 09/25/23 11/20/23 Ondansetron [Ondansetron Odt] 8 mg PO Q12H PRN 09/25/23 11/20/23 Acetaminophen [Tylenol Arthritis] 650 mg PO BID 11/08/23 11/20/23 Mirtazapine [Remeron] 7.5 mg PO QPM 11/08/23 11/20/23 Multivitamin,Therapeutic 1 each PO DAILY 11/08/23 11/20/23 [Thera-Tabs] Zinc Sulfate 220 mg PO DAILY 11/08/23 11/20/23 Amox/Clav 875/125 [Augmentin 1 tab PO BID 5 Days #10 tab 11/15/23 11/20/23 875/125 Tab] Fluticasone [Flonase] 1 sprays TR DAILY each 11/15/23 11/20/23 Multivitamin W/Minerals [Theragran 1 tab PO DAILYWM tab 11/15/23 11/20/23 M] - Allergies Allergies/Adverse Reactions: Allergies Allergy/AdvReac Type Severity Reaction Status Date / Time Sulfa (Sulfonamide Allergy Anaphylaxis Verified 11/20/23 00:34 Antibiotics) - Social History Does the pt smoke?: No Smoking Status: Never smoker Does the pt drink ETOH?: Yes Does the pt have substance abuse?: No - Immunizations Immunizations are current?: No Immunizations: Other immun not current - POLST Patient has POLST: No PD ED PE NORMAL - Vitals Vital signs reviewed: Yes - General General: Alert and oriented X 3, No acute distress, Well developed/nourished - HEENT HEENT: Pharynx benign - Neck Neck: Supple, no meningeal sign - Cardiac Cardiac: RRR, No murmur - Respiratory Respiratory: Clear bilaterally - Abdomen Abdomen: Soft, Non tender - Back Back: No CVA TTP - Derm Derm: Normal color, Warm and dry - Extremities Extremities: Normal ROM s pain, No edema - Neuro Neuro: Alert and oriented X 3, Normal speech Results - Vitals Vitals: Oxygen O2 Source Room air - Labs Labs: Microbiology 11/20/23 03:00 Blood Culture - Preliminary Blood NO GROWTH AFTER 1 DAY 11/20/23 02:34 Blood Culture - Preliminary Blood NO GROWTH AFTER 1 DAY Laboratory Tests 11/20/23 11/20/23 11/20/23 02:34 02:34 02:34 WBC 3.4 L RBC 2.45 L Hgb 7.5 L Hct 22.2 L MCV 90.6 MCH 30.6 MCHC 33.8 RDW 17.2 H Plt Count 147 MPV 9.6 Neut # (Auto) Not Reportable Lymph # (Auto) Not Reportable Frontier # (Auto) Not Reportable Eos # (Auto) Not Reportable Baso # (Auto) Not Reportable Absolute Nucleated RBC Not Reportable Total Counted 100 Band Neuts % (Manual) 6 Abnorm Lymph % (Manual) 0 Metamyelocytes % 1 H Myelocytes % 1 H Nucleated RBC % Not Reportable Neutrophils # (Manual) 2.1 Lymphocytes # (Manual) 0.8 L Monocytes # (Manual) 0.4 Eosinophils # (Manual) 0.0 Basophils # (Manual) 0.0 Differential Comment MANUAL DIFFERENTIAL Platelet Estimate NORMAL (130-450,000) RBC Morph Micro Appear NORMAL APPEARANCE Sodium 135 Potassium 3.6 Chloride 103 Carbon Dioxide 26 Anion Gap 6.0 BUN 11 Creatinine 0.6 Estimated GFR (MDRD) 99 Glucose 106 H Lactic Acid 0.6 Calcium 8.7 Total Bilirubin 0.9 AST 22 ALT 15 Alkaline Phosphatase 155 H Total Protein 5.8 L Albumin 3.4 Globulin 2.4 Albumin/Globulin Ratio 1.4 Lipase 11 Urine Color Urine Clarity Urine pH Ur Specific [place] Urine Protein Urine Glucose (UA) Urine Ketones Urine Occult Blood Urine Nitrite Urine Bilirubin Urine Urobilinogen Ur Leukocyte Esterase Ur Microscopic Review Urine Culture Comments Nasal Adenovirus (PCR) Nasal B. parapertussis DNA (PCR) Nasal Coronavir 229E PCR Nasal Coronavir HKU1 PCR Nasal Coronavir NL63 PCR Nasal Coronavir OC43 PCR Nasal Enterovir/Rhinovir PCR Nasal Influenza B PCR Nasal Influenza A PCR Nasal Parainfluen 1 PCR Nasal Parainfluen 2 PCR Nasal Parainfluen 3 PCR Nasal Parainfluen 4 PCR Nasal RSV (PCR) Nasal B.pertussis DNA PCR Nasal C.pneumoniae (PCR) Tr Human Metapneumo PCR Nasal M.pneumoniae (PCR) Nasal SARS-CoV-2 (PCR) 11/20/23 11/20/23 02:39 02:40 WBC RBC Hgb Hct MCV MCH MCHC RDW Plt Count MPV Neut # (Auto) Lymph # (Auto) Frontier # (Auto) Eos # (Auto) Baso # (Auto) Absolute Nucleated RBC Total Counted Band Neuts % (Manual) Abnorm Lymph % (Manual) Metamyelocytes % Myelocytes % Nucleated RBC % Neutrophils # (Manual) Lymphocytes # (Manual) Monocytes # (Manual) Eosinophils # (Manual) Basophils # (Manual) Differential Comment Platelet Estimate RBC Morph Micro Appear Sodium Potassium Chloride Carbon Dioxide Anion Gap BUN Creatinine Estimated GFR (MDRD) Glucose Lactic Acid Calcium Total Bilirubin AST ALT Alkaline Phosphatase Total Protein Albumin Globulin Albumin/Globulin Ratio Lipase Urine Color YELLOW Urine Clarity CLEAR Urine pH 7.0 Ur Specific [place] <=1.005 Urine Protein NEGATIVE Urine Glucose (UA) NEGATIVE Urine Ketones NEGATIVE Urine Occult Blood NEGATIVE Urine Nitrite NEGATIVE Urine Bilirubin NEGATIVE Urine Urobilinogen 0.2 (NORMAL) Ur Leukocyte Esterase NEGATIVE Ur Microscopic Review NOT INDICATED Urine Culture Comments NOT INDICATED Nasal Adenovirus (PCR) NOT DETECTED Nasal B. parapertussis DNA (PCR) NOT DETECTED Nasal Coronavir 229E PCR NOT DETECTED Nasal Coronavir HKU1 PCR NOT DETECTED Nasal Coronavir NL63 PCR NOT DETECTED Nasal Coronavir OC43 PCR NOT DETECTED Nasal Enterovir/Rhinovir PCR DETECTED A Nasal Influenza B PCR NOT DETECTED Nasal Influenza A PCR NOT DETECTED Nasal Parainfluen 1 PCR NOT DETECTED Nasal Parainfluen 2 PCR NOT DETECTED Nasal Parainfluen 3 PCR NOT DETECTED Nasal Parainfluen 4 PCR NOT DETECTED Nasal RSV (PCR) NOT DETECTED Nasal B.pertussis DNA PCR NOT DETECTED Nasal C.pneumoniae (PCR) NOT DETECTED Tr Human Metapneumo PCR NOT DETECTED Nasal M.pneumoniae (PCR) NOT DETECTED Nasal SARS-CoV-2 (PCR) NOT DETECTED - Rads (name of study) chest xray Relevant Findings:: Prelim report reviewed, EMP independent interpretation of test (no infiltrates) PD Medical Decision Making - ED course Complexity details: considered differential (pt with feeling malaise and subjective chills at home. Recent hospitalization for neutropenic fever and has been told to get eval for fevers. On recent discharge her white indira count was improved to above critical level. Can eval for bacterial cause, markers for sepsis, and also assess viral cause.), d/w patient Reviewed Lab Results: chest xray clear. Her fingers do not have redness (fever attributed to cellulitis in recent admission), UA is negative. WBC is low at 3.4 but not at risk low value for neutropenic fever per se. Lactic acid is normal. She appears well and no fevers here. Blood cultures and viral panel pending. Subsequently the viral panel results rhinovirus and nursing will call her with results. Departure - Departure Disposition: Home, Self Care Clinical Impression: Pancytopenia, Fever, Rhinovirus infection Clinical Impression: (Ruled Out): Neutropenic fever Condition: Stable Record reviewed to determine appropriate education?: Yes Follow-Up: Chiki Causey MD [Provider Admit Priv/Credential] - Yeny Nguyen ARNP [Provider Admit Priv/Credential] - Comments: Your white count is not too bad at 3.4. This places you at not "neutropenic" in the sense of high concern for hospitalization with fever etc. However it is lower than normal and we still would be concern for your bili to deal with infections. Currently your not having obvious signs of bacterial infection. Your skin areas have improved. No signs of bladder infection. Chest x-ray is clear. Your lactic acid level is normal which would be indicative of sepsis if it were elevated. Consider potential viral illness. Your respiratory viral panel is still pending. We do have blood cultures that were drawn and we will see if there is any growth from those over the next couple of days. For now we will presume perhaps a viral type illness. Stay well-hydrated. Tylenol every 4-6 hours for fevers or pains. Continue your other usual medicines. Talk with your oncology office in the next day or 2. Return if worsening symptoms. Forms: PCP List Discharge Date/Time: 11/20/23 04:00
[2023-11-20 04:06] VITALS: BP 138/70; O2SAT 98
[2023-11-20 04:42] LABS: B. PARAPERTUSSIS- RESP PCR PAN NOT DETECTED; B. PERTUSSIS- RESP PCR PANEL NOT DETECTED; C. PNEUMONIAE- RESP PCR PANEL NOT DETECTED; CORONAVIRUS 229E-RESP PCR NOT DETECTED; CORONAVIRUS HKU1-RESP PCR NOT DETECTED; CORONAVIRUS NL63-RESP PCR NOT DETECTED; CORONAVIRUS OC43-RESP PCR NOT DETECTED; HUMAN METAPNEUMOVIRUS NOT DETECTED; INFLUENZA A- RESP PCR PANEL NOT DETECTED; INFLUENZA B - RESP PCR PANEL NOT DETECTED; M. PNEUMONIAE- RESP PCR PANEL NOT DETECTED; PARAINFLUENZA VIRUS 1 NOT DETECTED; PARAINFLUENZA VIRUS 2 NOT DETECTED; PARAINFLUENZA VIRUS 3 NOT DETECTED; PARAINFLUENZA VIRUS 4 NOT DETECTED; RHINOVIRUS/ENTEROVIRUS DETECTED; RSV- RESP PCR PANEL NOT DETECTED; SARS-CoV-2 -RESP PCR PANEL NOT DETECTED
--- NOTE | 2023-11-20 08:37 | XRAY Report ---
PROCEDURE: Chest 1V INDICATIONS: congestion, fever TECHNIQUE: One view of the chest was acquired. COMPARISON: None. FINDINGS: Surgical changes and devices: Right chest wall Port-A-Cath tip is in SVC. Lungs and pleura: No pleural effusions or pneumothorax. Lungs are clear. Mediastinum: Mediastinal contours appear normal. Heart size is normal. Bones and chest wall: No suspicious bony lesions. Overlying soft tissues appear unremarkable. IMPRESSION: No acute cardiopulmonary process. Findings are concordant with preliminary interpretation provided by [facility]. Reviewed by: Praneeth Magallon MD on 11/20/2023 8:36 AM PDT Approved by: Praneeth Magallon MD on 11/20/2023 8:36 AM PDT Station ID: [id number]
== END 2023-11-20 04:00 | disposition home or self-care (01) ==
LOC: ED 00:25
DX: B34.8 Other viral infections of unspecified site (principal); D61.818 Other pancytopenia
CPT/HCPCS: 36415; 80053; 81001; 81003; 83605; 83690; 85025; 87040; 87086; 87633; 99284

== ENCOUNTER 2023-11-23 14:59 | Emergency (ER) | payer MEDICARE ==
[2023-11-23 15:17] VITALS: O2SAT 100
--- NOTE | 2023-11-23 15:59 | ED Physician Documentation ---
History of Present Illness - Stated complaint Stated Complaint: RT ARM BUMP - Chief complaint Chief Complaint: Ext Problem - Additonal information Additional information: 68-year-old female currently undergoing chemotherapy for T-cell lymphoma last chemo was on 29 of October. Patient says that she awoke with pain in her right AC with a lump that she feels like it is slowly been moving it is very tender to the touch she has no chest pain or shortness of breath no history of blood clots and she is not on any blood thinners. She has not had any recent blood draws or IVs to the right AC. PD PAST MEDICAL HISTORY - Past Medical History Past Medical History: Yes Cardiovascular: Hypertension Respiratory: None Neuro: Headaches Endocrine/Autoimmune: None GI: None INSTRUCTIONAL MATERIAL DIRECTOR: None : None HEENT: None Psych: None Musculoskeletal: None Derm: None Other Past Medical History: T-cell lymphoma - Past Surgical History Past Surgical History: Yes /INSTRUCTIONAL MATERIAL DIRECTOR: Tubal ligation, Breast reduction HEENT: Tonsil/Adenoidectomy - Present Medications Home Medications: Ambulatory Orders Medication Instructions Recorded Confirmed Omeprazole 20 mg PO TID PRN 08/20/23 11/20/23 Magic Mouthwash 1 each PO TID PRN 08/21/23 11/20/23 predniSONE [Prednisone] 100 mg PO UD 09/12/23 11/20/23 Acyclovir 400 mg PO BID 30 Days #60 tablet 09/18/23 11/08/23 Prochlorperazine [Compazine] 10 mg PO Q6H 10 Days #30 tablet 09/18/23 11/08/23 Benzonatate [Tessalon] 100 mg PO TID PRN 09/25/23 11/20/23 Ondansetron [Ondansetron Odt] 8 mg PO Q12H PRN 09/25/23 11/20/23 Acetaminophen [Tylenol Arthritis] 650 mg PO BID 11/08/23 11/20/23 Mirtazapine [Remeron] 7.5 mg PO QPM 11/08/23 11/20/23 Multivitamin,Therapeutic 1 each PO DAILY 11/08/23 11/20/23 [Thera-Tabs] Zinc Sulfate 220 mg PO DAILY 11/08/23 11/20/23 Amox/Clav 875/125 [Augmentin 1 tab PO BID 5 Days #10 tab 11/15/23 11/20/23 875/125 Tab] Fluticasone [Flonase] 1 sprays TR DAILY each 11/15/23 11/20/23 Multivitamin W/Minerals [Theragran 1 tab PO DAILYWM tab 11/15/23 11/20/23 M] - Allergies Allergies/Adverse Reactions: Allergies Allergy/AdvReac Type Severity Reaction Status Date / Time Sulfa (Sulfonamide Allergy Anaphylaxis Verified 11/23/23 15:03 Antibiotics) - Social History Does the pt smoke?: No Smoking Status: Never smoker Does the pt drink ETOH?: Yes Does the pt have substance abuse?: No - Immunizations Immunizations are current?: No Immunizations: Other immun not current - POLST Patient has POLST: No PD ED PE NORMAL - Vitals Vital signs reviewed: Yes - General General: Alert and oriented X 3, No acute distress, Well developed/nourished - Derm Derm: Normal color, Warm and dry, No rash, Other (right AC mass measuring about 2cm in diameter, tender to the touch no erythema) Results - Vitals Vitals: Vital Signs - 24 hr 11/23/23 11/23/23 15:03 17:24 Temperature 36.8 C Heart Rate 98 87 Respiratory 16 16 Rate Blood Pressure 167/82 H 148/87 H O2 Saturation 100 100 Oxygen O2 Source Room air - Rads (name of study) Right upper extremity venous duplex Relevant Findings:: Final report received, EMP independent interpretation of test, Other (No DVT) PD Medical Decision Making - ED course ED course: 68-year-old female presents emergency department for pain and tenderness with swelling at the superficial region of the AC joint. Patient has a port on the right side for chemo and so this does make her high risk for DVT of the upper extremity. Venous duplex was completed for further evaluation and there was no deep venous thrombosis visualized. Patient was reassured by this information she was given Toradol for pain and was told to follow-up with her oncologist to have a repeat venous duplex in about 1 week for further evaluation of this and was given very strict ED return precautions. All questions answered patient safe for discharge. Departure - Departure Disposition: 01 Home, Self Care Clinical Impression: Superficial venous thrombosis of arm Qualifiers: Laterality: right Qualified Code(s): I82.611 - Acute embolism and thrombosis of superficial veins of right upper extremity Instructions: ED Phlebitis Superficial Comments: Thank you for trusting us with your care. We have completed ultrasound of the right upper extremity and it appears that you have a superficial venous thrombosis. Because you have a port on that side we are strongly recommending that you get a repeat ultrasound in 1 week for further evaluation. Please follow-up with your oncologist within about today's ER visit and that we are recommending a 1 week follow-up right upper extremity venous duplex. Please come back to the ER if you are having any worsening symptoms, chest pain, shortness of breath or any other concerning emergent symptoms. Forms: PCP List Discharge Date/Time: 11/23/23 17:24
[2023-11-23 17:30] VITALS: BP 148/87
--- NOTE | 2023-11-23 17:34 | Ultrasound Report ---
PROCEDURE: Duplex Ext Veins Right INDICATIONS: RUE venous duplex r/o DVT right AC pain TECHNIQUE: Real-time imaging, as well as color and pulse Doppler interrogation, were performed of the right uppe r extremity deep veins from the inguinal ligament to the popliteal fossa. Attempted visualization of the calf veins was performed. COMPARISON: None. FINDINGS: The deep veins are normally compressible, and free of intraluminal thrombus. Color and pu lse Doppler demonstrate normal phasic intraluminal flow. There is normal augmentation response to di stal compression maneuver. IMPRESSION: No deep venous thrombosis of the visualized right upper extremity. Reviewed by: Chandan Moore MD on 11/23/2023 4:33 PM BRIAN Approved by: Chandan Moore MD on 11/23/2023 4:33 PM BRIAN Station ID: [id number]
== END 2023-11-23 17:24 | disposition home or self-care (01) ==
LOC: ED 14:59
DX: I82.611 Acute embolism and thrombosis of superficial veins of right upper extremity (principal); C85.80 Other specified types of non-Hodgkin lymphoma, unspecified site; Z79.899 Other long term (current) drug therapy
CPT/HCPCS: 99284

== ENCOUNTER 2023-12-04 11:22 | Inpatient (IN) ==
[2023-12-04] MEDS: SODIUM CHLORIDE 0.9% 1,000 ML IV STA (14:00)
[2023-12-04] MEDS: ACETAMINOPHEN 325 MG TABLET PO STA (14:02)
[2023-12-04 14:05] LABS: BILIRUBIN,URINE NEGATIVE (NEGATIVE); GLUCOSE, URINE (UA) NEGATIVE (NEGATIVE); KETONES,URINE (UA) NEGATIVE (NEGATIVE); LEUKOCYTE ESTERASE, URINE NEGATIVE (NEGATIVE); NITRITE,URINE NEGATIVE (NEGATIVE); OCCULT BLOOD,URINE NEGATIVE (NEGATIVE); PROTEIN,URINE NEGATIVE (NEGATIVE); UROBILINOGEN,URINE 0.2 (NORMAL) E.U./dL (NORMAL)
[2023-12-04 14:06] LABS: EOSINOPHILS % (AUTO) 3.3 %; HCT - HEMATOCRIT 20.9 % (37.0-47.0); LYMPHOCYTES % (AUTO) 66.7 %; MEAN CORPUSCULAR HEMOGLOBIN 30.1 pg (27.0-31.0); MEAN CORPUSCULAR VOLUME 91.3 fL (81.0-99.0); MEAN PLATELET VOLUME 9.4 fL (7.9-10.8); PLT - PLATELET COUNT 56 10^3/uL (130-450); RED BLOOD COUNT 2.29 10^6/uL (4.20-5.40); RED CELL DISTRIBUTION WIDTH 17.4 % (12.0-15.0)
[2023-12-04 14:09] LABS: CLARITY,URINE CLEAR (CLEAR)
--- NOTE | 2023-12-04 14:27 | XRAY Report ---
PROCEDURE: XR Chest 1V INDICATIONS: sepsis work-up TECHNIQUE: One view of the chest was acquired. COMPARISON: 11/20/2023 FINDINGS: Surgical changes and devices: Right portacatheter terminates in the mid SVC Lungs and pleura: Low lung volumes. No acute airspace disease or pleural effusions. The interstitium is mildly prominent. Mediastinum: Normal heart size. Bones and chest wall: Degenerative changes IMPRESSION: No dense airspace disease or pleural effusion on this limited single view study with low lung volumes . Questionably prominent interstitium, possibly atypical infection or edema. Reviewed by: Jordi Armstrong MD on 12/04/2023 2:26 PM PDT Approved by: Jordi Armstrong MD on 12/04/2023 2:26 PM PDT Station ID: [id number]
[2023-12-04 14:39] LABS: HGB - HEMOGLOBIN 6.9 g/dL (12.0-16.0); WHITE BLOOD COUNT 0.3 x10^3/uL (4.8-10.8)
[2023-12-04 14:40] LABS: ABNORMAL LYMPHS % (MANUAL) 0 %; BAND NEUTROPHILS % (MANUAL) 0 %
--- NOTE | 2023-12-04 14:56 | ED Physician Documentation ---
History of Present Illness Stated complaint Stated Complaint: CHILLS Chief complaint Chief Complaint: Fever History obtained from History obtained from: Patient Additonal information Additional information: Patient is a 68-year-old female coming to the emergency department from [facility] after noted to be febrile they are at 100.6. Patient has had intermittent fevers the last few days she is recently finished chemotherapy treatment last week for T-cell lymphoma. She was diagnosed about 1 year ago. She notes this was her last chemotherapy infusion she was continue to receive IV fluids. On arrival today she denies any cough shortness of breath dizziness or lightheadedness. She notes persistent rigors and chills with her symptoms. She checked her temperature with a highest of 100.6 at home. She has no cough or shortness of breath no urinary symptoms. She has been eating and drinking less which is why she is still receiving IV fluids at [facility] lately. She follows with oncology here at Dr. Causey as well as [facility] in [place] Exam Constitutional \patient appears fatigued Eyes PERRL and EOMs intact bilaterally Lymph no lymphadenopathy noted Respiratory breath sounds equal bilaterally and normal respiratory effort Cardiovascular normal heart rate noted Skin skin color normal and no rash Results Vitals Vitals: Vital Signs - 24 hr 12/04/23 10:02 12/04/23 11:29 12/04/23 13:39 Temperature 37.5 C 38.1 C H Temperature Source Oral Oral Pulse Rate 107 H 109 H Respiratory Rate 18 23 Blood Pressure 157/82 H 158/77 H O2 Saturation 98 96 O2 Source Room air Room air Room air Pain Intensity 0 0 0 12/04/23 14:02 Temperature Temperature Source Pulse Rate Respiratory Rate Blood Pressure O2 Saturation O2 Source Pain Intensity 0 Oxygen O2 Source Room air Labs Labs: Laboratory Tests 12/04/23 12/04/23 13:20 13:53 WBC 0.3 L* RBC 2.29 L Hgb 6.9 L* Hct 20.9 L MCV 91.3 MCH 30.1 MCHC 33.0 RDW 17.4 H Plt Count 56 L MPV 9.4 Lactic Acid 0.7 Urine Color DARK YELLOW Urine Clarity CLEAR Urine pH 8.0 H Ur Specific [place] 1.020 Urine Protein NEGATIVE Urine Glucose (UA) NEGATIVE Urine Ketones NEGATIVE Urine Occult Blood NEGATIVE Urine Nitrite NEGATIVE Urine Bilirubin NEGATIVE Urine Urobilinogen 0.2 (NORMAL) Ur Leukocyte Esterase NEGATIVE Ur Microscopic Review NOT INDICATED Urine Culture Comments NOT INDICATED PD Medical Decision Making ED course Complexity details: reviewed old records and re-evaluated patient ED course: Patient on arrival febrile to 100.6 IV fluids started and Tylenol given last dose was at 08 100. Patient's labs remarkable for neutropenic and leukopenic here as well as anemia to 6.9. Patient has possible edema versus atypical pneumonia on chest x-ray with no signs of UTI on urine analysis. Patient started on cefepime after blood cultures were obtained lactic acid is stable. Discussed with patient IV fluids were given for persistent tachycardia to the 110s here. Patient agreeable with admission discussed with hospitalist and patient will be admitted under Dr. Powell. Pending Type and screen here in emergency department. . Will hold off as patient is asymptomatic with anemia and Causey's note reported only wanting irradiated blood transfusion if patient is symptomatic below 7 hemoglobin [facility] Medical History Medical History (Updated 12/04/23 @ 11:06 by KANDACE Peña) Port-A-Cath in place Hyponatremia Neutropenic fever Elevated liver function tests Mucositis (ulcerative) due to antineoplastic therapy Rhinovirus infection Cellulitis of right index finger Hypokalemia Superficial venous thrombosis of arm Surgical History Surgical History (Updated 12/04/23 @ 08:12 by KANDACE Peña) History of tonsillectomy H/O reduction mammoplasty Social History Social History (Updated 12/04/23 @ 10:56 by KNADACE Peña) Smoking Status: Never smoker Do you dip or chew tobacco?: No Do you vape?: No Patient requests smoking cessation consult: No Living arrangement: At home Marital Status: Living Condition: With friend(s) Support Person: Yes Relationship: Living Situation Details: Patient lives by herself, her daughter lives nearby. She is recently retired. She has a son in [place] and his son and os did not with 3 grandchildren. She still has 2 sisters who are alive and a brother. She has found this journey very stressful impacting quality of life. She has many friends who are quite supportive but tends not to ask for help. How many days per week?: 0 Level: Independent Do you feel safe in your home environment?: Yes Suffered physical, verbal, emotional, or financial abuse?: No History of Abuse: No Frequency: Occasional Service: No POLST Patient has POLST: Yes POLST Status: Selected treatments Discharge Plan Discharge Prescriptions: No Action Magic Mouthwash 120 ML bottle 1 ea PO TID PRN (Reason: Pain 1-4) Patient Comments: 08/17/23 refilled at [facility] ldt/lb PER [facility] Rx Instructions: Swish and spit 1 tbsp (15ml) 4-6 times daily PRN. Omeprazole 20 MG Tablet.Dr 20 mg PO 2XD Patient Comments: 09/09/23 #90+3rf called to [facility]/adiel prochlorperazine maleate 5 MG tablet 10 mg PO Q6H 10 Days Qty: 30 3RF Rx Instructions: Take one tab by mouth Q6 hours as needed for nausea. acyclovir 400 MG tablet 400 mg PO BID 30 Days Qty: 60 3RF Rx Instructions: Take 400mg by mouth every 12 hours. ondansetron 8 mg tablet,disintegrating 8 mg PO Q8H PRN (Reason: Nausea / Vomiting) Patient Comments: DISSOLVE 1 TABLET UNDER THE TONGUE EVERY 12 HOURS NEEDED FOR NAUSEA AND VOMITING. mirtazapine [Remeron SolTab] 15 MG tablet,disintegrating 7.5 mg PO QPM Rx Instructions: one 7.5mg tablet po at bedtime. acetaminophen [Tylenol Arthritis Pain] 650 MG tablet extended release 650 mg PO BID therapeutic multivitamin [Thera-Tabs] 1 EACH tablet 1 ea PO DAILY zinc sulfate 220 MG capsule 220 mg PO DAILY fluticasone propionate 120 SPRAYS spray,suspension 1 sprays intranasal DAILY 0RF [id number] fum-folic ac [Therapeutic-M] 1 TAB tablet 1 tab PO DAILYWM 0RF polyethylene glycol 3350 [Miralax] 17 gram powder in packet 17 g PO QDAY Stand Alone Forms: PCP List
[2023-12-04 15:01] LABS: ALBUMIN 3.4 g/dL (3.2-5.5); ALBUMIN/GLOBULIN RATIO 1.6 (1.0-2.2); ALKALINE PHOSPHATASE 142 IU/L (42-121); ALT ALANINE AMINOTRANSFERASE 43 IU/L (10-60); AST ASPARTATE AMINOTRANSFERASE 23 IU/L (10-42); BILIRUBIN,TOTAL 1.5 mg/dL (0.2-1.0); BUN - BLOOD UREA NITROGEN 13 mg/dL (6-20); CALCIUM 8.5 mg/dL (8.5-10.3); CARBON DIOXIDE - CO2 28 mmol/L (21-32); CHLORIDE 100 mmol/L (101-111); CREATININE 0.4 mg/dL (0.6-1.3); GFR - MDRD 159 (>89); GLUCOSE 100 mg/dL (74-104); MAGNESIUM 1.6 mg/dL (1.7-2.3); SODIUM 132 mmol/L (135-145); TOTAL PROTEIN 5.5 g/dL (6.4-8.9)
[2023-12-04 15:06] LABS: B. PARAPERTUSSIS- RESP PCR PAN NOT DETECTED; B. PERTUSSIS- RESP PCR PANEL NOT DETECTED; C. PNEUMONIAE- RESP PCR PANEL NOT DETECTED; CORONAVIRUS 229E-RESP PCR NOT DETECTED; CORONAVIRUS HKU1-RESP PCR NOT DETECTED; CORONAVIRUS NL63-RESP PCR NOT DETECTED; CORONAVIRUS OC43-RESP PCR NOT DETECTED; HUMAN METAPNEUMOVIRUS NOT DETECTED; INFLUENZA A- RESP PCR PANEL NOT DETECTED; INFLUENZA B - RESP PCR PANEL NOT DETECTED; M. PNEUMONIAE- RESP PCR PANEL NOT DETECTED; PARAINFLUENZA VIRUS 1 NOT DETECTED; PARAINFLUENZA VIRUS 2 NOT DETECTED; PARAINFLUENZA VIRUS 3 NOT DETECTED; PARAINFLUENZA VIRUS 4 NOT DETECTED; RHINOVIRUS/ENTEROVIRUS NOT DETECTED; RSV- RESP PCR PANEL NOT DETECTED; SARS-CoV-2 -RESP PCR PANEL NOT DETECTED
[2023-12-04 15:13] LABS: LIPASE < 10 U/L (11-82)
[2023-12-04 15:15] LABS: BASOPHILS % (MANUAL) 1 %; LYMPHOCYTES # (MANUAL) 0.2 10^3/uL (1.5-3.5); LYMPHOCYTES % (MANUAL) 70 %; MONOCYTES # (MANUAL) 0.1 10^3/uL (0.0-1.0)
[2023-12-04 15:20] LABS: DIFFERENTIAL COMMENT MANUAL DIFFERENTIAL; PLATELET ESTIMATE, MANUAL DECREASED (<130,000) (NORMAL); PLATELET MORPHOLOGY NORMAL APPEARANCE (NORMAL); RBC MORPHOLOGY (MULTIPLE) 2+ ANISOCYTOSIS (NORMAL)
[2023-12-04] MEDS: CEFEPIME 2 GM in SODIUM CHLORIDE 0.9% MINIBAG 100 ML IV STA (15:30)
[2023-12-04] MEDS ORDERED: OMEPRAZOLE 20 MG PO SCH (16:00)
--- NOTE | 2023-12-04 17:44 | HISTORY & PHYSICAL EXAMINATION ---
Chief Complaint Chief Complaint Chief Complaint: chills History of Present Illness Admitted From Admitted From:: ED History Obtained From Records Reviewed: palliative care notes History obtained from: patient History of Present Illness HPI Comment/Other: 68-year-old female coming to the emergency department from [facility] with a fever of 100.6. She has been feeling poorly at home for several days and has had intermittent fevers. Last chemotherapy for T-cell lymphoma was 1 week ago today. She has a little bit of a dry cough, due to post nasal drip, she thinks. Otherwise is without complaints. this afternoon she is hungry and tired, but denies any pain. She was discharged from our facility on 11/15/2023 for neutropenic fever which was thought to be due to cellulitis. Okay to use at that time she also had a mucositis which resolved easily with nystatin and Magic mouthwash. She is not having these complaints today. Meds/Allgy Home Medications Ambulatory Orders Medication Instructions Recorded Confirmed Magic Mouthwash 1 ea PO TID PRN Pain 1-4 08/21/23 12/04/23 acyclovir 400 mg tablet 400 mg PO BID 30 days #60 tabs 09/18/23 12/04/23 prochlorperazine maleate 5 mg 10 mg (2 x 5 mg) PO Q6H 10 days 09/18/23 12/04/23 tablet #30 tabs acetaminophen 650 mg 650 mg PO BID 11/08/23 12/04/23 tablet,extended release (Tylenol Arthritis Pain) mirtazapine 15 mg disintegrating 7.5 mg PO QPM 11/08/23 12/04/23 tablet (Remeron SolTab) therapeutic multivitamin 1 ea PO DAILY 11/08/23 12/04/23 (Thera-Tabs tablet) zinc sulfate 50 mg zinc (220 mg) 220 mg PO DAILY 11/08/23 12/04/23 capsule fluticasone propionate 50 1 sprays intranasal DAILY 11/15/23 12/04/23 mcg/actuation nasal spray,suspension [id number]-[id number]-beuv 1 tab PO DAILYWM 11/15/23 12/04/23 fumarate 19 mg-folic acid 400 mcg tablet (Therapeutic-M) Omeprazole 20 mg PO 2XD Indigestion 12/04/23 ondansetron 8 mg disintegrating 8 mg PO Q8H PRN Nausea / Vomiting 12/04/23 12/04/23 tablet polyethylene glycol 3350 17 gram 17 g PO QDAY 12/04/23 12/04/23 oral powder packet (Miralax) Allergies Allergies Allergy/AdvReac Type Severity Reaction Status Date / Time Sulfa (Sulfonamide Allergy Anaphylaxis Verified 12/04/23 11:38 Antibiotics) [facility] Medical History Medical History Port-A-Cath in place Hyponatremia Neutropenic fever Elevated liver function tests Mucositis (ulcerative) due to antineoplastic therapy Rhinovirus infection Cellulitis of right index finger Hypokalemia Superficial venous thrombosis of arm Surgical History Surgical History History of tonsillectomy H/O reduction mammoplasty Social History Social History (Updated 12/04/23 @ 10:56 by KANDACE Peña) Smoking Status: Never smoker Do you dip or chew tobacco?: No Do you vape?: No Patient requests smoking cessation consult: No Living arrangement: At home Marital Status: Living Condition: With friend(s) Support Person: Yes Relationship: Living Situation Details: Patient lives by herself, her daughter lives nearby. She is recently retired. She has a son in [place] and his son and os did not with 3 grandchildren. She still has 2 sisters who are alive and a brother. She has found this journey very stressful impacting quality of life. She has many friends who are quite supportive but tends not to ask for help. How many days per week?: 0 Level: Independent Do you feel safe in your home environment?: Yes Suffered physical, verbal, emotional, or financial abuse?: No History of Abuse: No Frequency: Occasional Service: No POLST Patient has POLST: Yes POLST Status: Selected treatments Review of Systems Status of ROS: 10 or more systems reviewed and unremarkable except as noted in history and below Constitutional Reports: Fatigue, Fever, Chills and Malaise Eyes Reports: Eye discomfort Ears, nose, mouth, and throat Denies: Change in hearing Cardiovascular Denies: Irregular heart rate, palpitations or shortness of breath with exertion Respiratory Reports: Cough (occasional); Denies: Shortness of breath, Sputum production, Wheezing, Pain on inspiration, Orthopnea or SOB at rest Gastrointestinal Denies: Abdominal pain Genitourinary Denies: Painful urination Musculoskeletal Denies: Back pain, Extremity pain or Joint pain Integumentary/Breast Denies: Rash Neurological Denies: Headache, General weakness, Focal weakness or Weakness in extremities Psychiatric Denies: Depression Endocrine Reports: Fatigue Allergic/Immunologic Denies: Wheezing Prior Level of Functionality: independent. lives alone. does have frequent check ins from friends Sepsis Event Note (H) Evaluation Possible source of Sepsis: positive Pulmonary Conclusion/Plan Problem List (1) Neutropenic fever: Plan: Last chemotherapy was 1 week ago today. Tmax of 38.6 here. She is also tachycardic. She has not experienced any hypotension. Her oxygen saturations are within normal limits. Aside from fatigue malaise and chills she has no complaints. She will be admitted. Neutropenic precautions have been instituted. We will follow her counts. On admission her white blood cell count is 300. Her ANC is 0. (2) Community acquired pneumonia: Plan: patient has occasional cough. She is also running fevers. The chest x-ray done in the emergency department today shows no dense airspace disease or pleural effusion. There is questionably prominent interstitium with possible atypical infection or edema. For this reason I will be treating her for community- acquired pneumonia and specially in light of her neutropenic fever. I will be treating her with cefepime and azithromycin. Qualifiers: Laterality: unspecified laterality Qualified Code(s): J18.9 - Pneumonia, unspecified organism (3) Severe protein-calorie malnutrition: Plan: She qualifies for protein calorie malnutrition diagnosis due to weight loss and poor p.o. intake. On her last admission she had a mucositis which did resolve and her intake improved. We have encouraged her to have multiple meals and snacks a day. (4) Anemia: Plan: Her hemoglobin is currently 6.9. Oncology is recommended that should she need red blood cells she get irradiated blood. We will continue to follow her counts and transfuse as needed. Qualifiers: Anemia type: other cause Other causes of anemia: antineoplastic chemotherapy Qualified Code(s): D64.81 - Anemia due to antineoplastic chemotherapy; T45.1X5A - Adverse effect of antineoplastic and immunosuppressive drugs, initial encounter (5) T-cell lymphoma: Plan: She is on active chemotherapy regimen. (6) Hypertension: Plan: I will hold her blood pressure medications for now. We will continue to monitor her blood pressures Selected Entries 12/04/23 10:02 12/04/23 11:29 12/04/23 13:39 Blood Pressure 157/82 H 158/77 H Blood Pressure [Left Radial artery] 127/61 12/04/23 15:09 12/04/23 16:21 Blood Pressure 128/74 136/67 H Blood Pressure [Left Radial artery] Qualifiers: Hypertension type: primary hypertension Qualified Code(s): I10 - Essential (primary) hypertension (7) GERD (gastroesophageal reflux disease): Plan: Continue home proton pump inhibitor. Qualifiers: Esophagitis presence: esophagitis presence not specified Qualified Code(s): K21.9 - Gastro-esophageal reflux disease without esophagitis Plan disposition: Patient will remain inpatient until her ANC count is greater than 500. Will continue to monitor for signs of sepsis. We will continue to monitor for the need for transfusion. She will likely discharge to home in the care of friends and family. She lives alone but has a supportive group of loved ones. Lab Results 12/04/23 13:53 12/04/23 13:53 Core Measures Anticipated LOS I expect patient to be DC'd or transferred within 96 hours.: Yes Issues Hospital Issues and Management Plan: neutropenic fever. anemia CAP. DVT/VTE - Prophylaxis VTE/DVT Device ordered at admit?: Yes VTE/DVT Prophylaxis med ordered at admit?: Yes Exam Constitutional normal general appearance HENMT head/scalp atraumatic and hearing grossly normal bilaterally Eyes PERRL, conjunctivae normal and no scleral icterus Neck/C-Spine visual inspection normal and trachea midline Lymph no lymphadenopathy noted Chest inspection of chest normal Respiratory breath sounds equal bilaterally, normal respiratory effort and clear to auscultation bilaterally Cardiovascular normal heart rate noted Gastrointestinal abdomen normal to inspection and abdomen soft to palpation Genitourinary no CVA tenderness Back/Pelvis spine normal to inspection Extremities normal to inspection Neurology pathology supervisor II-XII intact Psychiatry mental status grossly normal, oriented x3, thought process normal, cooperative and affect normal Skin skin color normal
[2023-12-04] MEDS: SODIUM CHLORIDE FLUSH 0.9% 10 ML SYRINGE IVP SCH (18:31)
[2023-12-04] MEDS: AZITHROMYCIN INJ 500 MG in SODIUM CHLORIDE 0.9% 250 ML IV SCH (18:31)
[2023-12-04] MEDS: ACETAMINOPHEN 325 MG TABLET PO PRN (18:38)
[2023-12-04] MEDS: ONDANSETRON ODT 4 MG TABLET TL PRN (18:38)
[2023-12-04] MEDS: SODIUM CHLORIDE FLUSH 0.9% 10 ML SYRINGE IVP PRN (22:01)
[2023-12-04] MEDS: HEPARIN 5,000 UNIT/ML VIAL SUBQ SCH (22:01)
[2023-12-04] MEDS: ACYCLOVIR 200 MG CAPSULE PO SCH (22:01)
[2023-12-04] MEDS: MIRTAZAPINE 15 MG TABLET PO SCH (22:01)
[2023-12-04] MEDS: CEFEPIME 1 GM in SODIUM CHLORIDE 0.9% MINIBAG 100 ML IV SCH (22:02)
[2023-12-05] MEDS: PANTOPRAZOLE 40 MG TABLET PO SCH (06:28)
[2023-12-05] MEDS: FLUTICASONE NASAL SPRAY NAS SCH (08:30)
[2023-12-05] MEDS: MULTIVITAMIN W/MINERALS TABLET PO SCH (08:30)
--- NOTE | 2023-12-05 09:27 | PROVIDER PROGRESS NOTE ---
Subjective Prog Note Date Prog Note Date: 12/05/23 Prog Note Time: 10:25 Subjective Pt reports feeling: No change Subjective: She was able to sleep well overnight and has been napping this morning. her mouth is bothering her, and she did not eat very much this AM. This afternoon we talked about a POLST form and she states that she has POLST designating DNR and selective treatment. She is relatively sure she filled this out with Dr. Fountain previously at the [facility]. I cannot find this form on file. In any event these are her desires. She is not having any coughing. She is not having any chest pain or shortness of breath. She has defervesced since yesterday afternoon. Current Medications Current Medications Current Medications: Current Medications Generic Name Dose Route Start Last Admin Trade Name Freq PRN Reason Stop Dose Admin Acetaminophen 650 mg 12/04/23 15:41 12/04/23 18:38 Acetaminophen 325 Mg Tablet PO 650 mg Q4HR PRN Administration Pain 1 to 4, or Fever Acyclovir 400 mg 12/04/23 21:00 12/05/23 08:30 Acyclovir 200 Mg Capsule PO 400 mg BID JARED Administration Fluticasone Propionate 1 sprays 12/05/23 09:00 12/05/23 08:30 Fluticasone Nasal [place] TR 1 spr DAILY JARED Administration Heparin Sodium (Porcine) 5,000 unit 12/04/23 21:00 12/04/23 22:01 Heparin 5,000 Unit/Ml Vial SUBQ Not Given BID JARED Azithromycin 500 mg/ Sodium 250 mls @ 250 mls/hr 12/04/23 17:00 12/05/23 08:30 Chloride IV 12/06/23 09:59 250 mls/hr DAILY JARED Administration Cefepime HCl 1 gm/ Sodium 100 mls @ 200 mls/hr 12/04/23 21:00 12/05/23 06:30 Chloride IV Infused Q8H JARED Infusion Mirtazapine 7.5 mg 12/04/23 21:00 12/04/23 22:01 Mirtazapine 15 Mg Tablet PO 7.5 mg QPM JARED Administration Mirtazapine 7.5 mg 12/05/23 10:00 Mirtazapine 15 Mg Tablet PO DAILY PM JARED Multi-Ingredient Mouthwash/Gargle 30 ml 12/05/23 10:00 Magic Mouthwash (Nystatin) 120 Ml Bottle PO Q4H JARED Multivitamins/Minerals 1 tab 12/05/23 08:00 12/05/23 08:30 Multivitamin W/Minerals Tablet PO 1 tab DAILYWM JARED Administration Ondansetron HCl 4 mg 12/04/23 15:41 12/04/23 18:38 Ondansetron Odt 4 Mg Tablet TL 4 mg Q6HR PRN Administration Nausea / Vomiting Pantoprazole Sodium 40 mg 12/05/23 07:00 12/05/23 06:28 Pantoprazole 40 Mg Tablet PO 40 mg BIDAC JARED Administration Sodium Chloride 10 ml 12/04/23 15:41 12/04/23 22:01 Sodium Chloride Flush 0.9% 10 Ml Syringe IVP 10 ml PRN PRN Administration NEEDED PER PROVIDER ORDERS Sodium Chloride 10 ml 12/04/23 17:00 12/05/23 08:30 Sodium Chloride Flush 0.9% 10 Ml Syringe IVP 10 ml 0100,0900,1700 JARED Administration Sodium Chloride 10 ml 12/05/23 09:16 Sodium Chloride Flush 0.9% 10 Ml Syringe IVP PRN PRN NEEDED PER PROVIDER ORDERS Sodium Chloride 10 ml 12/05/23 10:00 Sodium Chloride Flush 0.9% 10 Ml Syringe IVP Q8H JARED Objective Vital Signs/Intake & Output Vital Signs: Vital Signs x48h Temp Pulse Resp BP Pulse Ox 12/05/23 08:33 36.8 C 103 H 16 116/67 96 Intake & Output: Intake & Output 12/03/23 12/04/23 12/05/23 12/06/23 05:59 05:59 05:59 05:59 Intake Total 1500 / 1500 100 / 100 Balance 1500 / 1500 100 / 100 Weight (kg) 66.7 kg Objective General Appearance: positive No acute distress Eyes Bilateral: positive Normal inspection ENT: positive Oral lesions (white plaques on the buccal surfaces) Neck: positive Nml inspection Respiratory: positive Chest non-tender, No respiratory distress and Breath sounds nml Cardiovascular: positive Regular rate & rhythm Abdomen: positive Non-tender Skin: positive Color nml and No rash Extremities: positive No pedal edema Neurologic/Psychiatric: positive Oriented x3 Lab Results 12/05/23 10:12 12/05/23 10:12 Other Labs: Lab Results x24hrs 12/04/23 12/04/23 12/04/23 Range/Units 15:05 13:59 13:53 WBC 0.3 L* (4.8-10.8) x10^3/uL RBC 2.29 L (4.20-5.40) 10^6/uL Hgb 6.9 L* (12.0-16.0) g/dL Hct 20.9 L (37.0-47.0) % MCV 91.3 (81.0-99.0) fL MCH 30.1 (27.0-31.0) pg MCHC 33.0 (32.0-36.0) g/dL RDW 17.4 H (12.0-15.0) % Plt Count 56 L (130-450) 10^3/uL MPV 9.4 (7.9-10.8) fL Neut # (Auto) Not Reportable Lymph # (Auto) Not Reportable [place] # (Auto) Not Reportable Eos # (Auto) Not Reportable Baso # (Auto) Not Reportable Absolute Nucleated RBC Not Reportable Total Counted 100 Band Neuts % (Manual) 0 (0 - 10) % Abnorm Lymph % (Manual) 0 % Nucleated RBC % Not Reportable Neutrophils # (Manual) 0.0 L* (1.5-6.6) 10^3/uL Lymphocytes # (Manual) 0.2 L (1.5-3.5) 10^3/uL Monocytes # (Manual) 0.1 (0.0-1.0) 10^3/uL Eosinophils # (Manual) 0.0 (0-0.7) 10^3/uL Basophils # (Manual) 0.0 (0-0.1) 10^3/uL Differential Comment MANUAL DIFFERENTIAL Platelet Estimate DECREASED (<130,000) (NORMAL) Platelet Morphology NORMAL APPEARANCE (NORMAL) RBC Morph Micro Appear 2+ ANISOCYTOSIS (NORMAL) Sodium 132 L (135-145) mmol/L Potassium 4.0 (3.5-4.5) mmol/L Chloride 100 L (101-111) mmol/L Carbon Dioxide 28 (21-32) mmol/L Anion Gap 4.0 L (6-13) BUN 13 (6-20) mg/dL Creatinine 0.4 L (0.6-1.3) mg/dL Estimated GFR (MDRD) 159 (>89) Glucose 100 (74-104) mg/dL Lactic Acid 0.7 (0.5-2.2) mmol/L Calcium 8.5 (8.5-10.3) mg/dL Magnesium 1.6 L (1.7-2.3) mg/dL Total Bilirubin 1.5 H (0.2-1.0) mg/dL AST 23 (10-42) IU/L ALT 43 (10-60) IU/L Alkaline Phosphatase 142 H (42-121) IU/L Total Protein 5.5 L (6.4-8.9) g/dL Albumin 3.4 (3.2-5.5) g/dL Globulin 2.1 (2.1-4.2) g/dL Albumin/Globulin Ratio 1.6 (1.0-2.2) Lipase < 10 L (11-82) U/L Urine Color Urine Clarity (CLEAR) Urine pH (5.0-7.5) PH Ur Specific [place] (1.002-1.030) Urine Protein (NEGATIVE) mg/dL Urine Glucose (UA) (NEGATIVE) mg/dL Urine Ketones (NEGATIVE) mg/dL Urine Occult Blood (NEGATIVE) Urine Nitrite (NEGATIVE) Urine Bilirubin (NEGATIVE) Urine Urobilinogen (NORMAL) E.U./dL Ur Leukocyte Esterase (NEGATIVE) Ur Microscopic Review Urine Culture Comments Nasal Adenovirus (PCR) NOT DETECTED Nasal B. parapertussis DNA (PCR) NOT DETECTED Nasal Coronavir 229E PCR NOT DETECTED Nasal Coronavir HKU1 PCR NOT DETECTED Nasal Coronavir NL63 PCR NOT DETECTED Nasal Coronavir OC43 PCR NOT DETECTED Nasal Enterovir/Rhinovir PCR NOT DETECTED Nasal Influenza B PCR NOT DETECTED Nasal Influenza A PCR NOT DETECTED Nasal Parainfluen 1 PCR NOT DETECTED Nasal Parainfluen 2 PCR NOT DETECTED Nasal Parainfluen 3 PCR NOT DETECTED Nasal Parainfluen 4 PCR NOT DETECTED Nasal RSV (PCR) NOT DETECTED Nasal B.pertussis DNA PCR NOT DETECTED Nasal C.pneumoniae (PCR) NOT DETECTED Tr Human Metapneumo PCR NOT DETECTED Nasal M.pneumoniae (PCR) NOT DETECTED Nasal SARS-CoV-2 (PCR) NOT DETECTED Blood Type O NEGATIVE Antibody Screen NEGATIVE 12/04/23 Range/Units 13:20 WBC (4.8-10.8) x10^3/uL RBC (4.20-5.40) 10^6/uL Hgb (12.0-16.0) g/dL Hct (37.0-47.0) % MCV (81.0-99.0) fL MCH (27.0-31.0) pg MCHC (32.0-36.0) g/dL RDW (12.0-15.0) % Plt Count (130-450) 10^3/uL MPV (7.9-10.8) fL Neut # (Auto) Lymph # (Auto) [place] # (Auto) Eos # (Auto) Baso # (Auto) Absolute Nucleated RBC Total Counted Band Neuts % (Manual) (0 - 10) % Abnorm Lymph % (Manual) % Nucleated RBC % Neutrophils # (Manual) (1.5-6.6) 10^3/uL Lymphocytes # (Manual) (1.5-3.5) 10^3/uL Monocytes # (Manual) (0.0-1.0) 10^3/uL Eosinophils # (Manual) (0-0.7) 10^3/uL Basophils # (Manual) (0-0.1) 10^3/uL Differential Comment Platelet Estimate (NORMAL) Platelet Morphology (NORMAL) RBC Morph Micro Appear (NORMAL) Sodium (135-145) mmol/L Potassium (3.5-4.5) mmol/L Chloride (101-111) mmol/L Carbon Dioxide (21-32) mmol/L Anion Gap (6-13) BUN (6-20) mg/dL Creatinine (0.6-1.3) mg/dL Estimated GFR (MDRD) (>89) Glucose (74-104) mg/dL Lactic Acid (0.5-2.2) mmol/L Calcium (8.5-10.3) mg/dL Magnesium (1.7-2.3) mg/dL Total Bilirubin (0.2-1.0) mg/dL AST (10-42) IU/L ALT (10-60) IU/L Alkaline Phosphatase (42-121) IU/L Total Protein (6.4-8.9) g/dL Albumin (3.2-5.5) g/dL Globulin (2.1-4.2) g/dL Albumin/Globulin Ratio (1.0-2.2) Lipase (11-82) U/L Urine Color DARK YELLOW Urine Clarity CLEAR (CLEAR) Urine pH 8.0 H (5.0-7.5) PH Ur Specific [place] 1.020 (1.002-1.030) Urine Protein NEGATIVE (NEGATIVE) mg/dL Urine Glucose (UA) NEGATIVE (NEGATIVE) mg/dL Urine Ketones NEGATIVE (NEGATIVE) mg/dL Urine Occult Blood NEGATIVE (NEGATIVE) Urine Nitrite NEGATIVE (NEGATIVE) Urine Bilirubin NEGATIVE (NEGATIVE) Urine Urobilinogen 0.2 (NORMAL) (NORMAL) E.U./dL Ur Leukocyte Esterase NEGATIVE (NEGATIVE) Ur Microscopic Review NOT INDICATED Urine Culture Comments NOT INDICATED Nasal Adenovirus (PCR) Nasal B. parapertussis DNA (PCR) Nasal Coronavir 229E PCR Nasal Coronavir HKU1 PCR Nasal Coronavir NL63 PCR Nasal Coronavir OC43 PCR Nasal Enterovir/Rhinovir PCR Nasal Influenza B PCR Nasal Influenza A PCR Nasal Parainfluen 1 PCR Nasal Parainfluen 2 PCR Nasal Parainfluen 3 PCR Nasal Parainfluen 4 PCR Nasal RSV (PCR) Nasal B.pertussis DNA PCR Nasal C.pneumoniae (PCR) Tr Human Metapneumo PCR Nasal M.pneumoniae (PCR) Nasal SARS-CoV-2 (PCR) Blood Type Antibody Screen ABX Reporting Has patient been on IV antibiotics over the past 48 hours?: Yes Sepsis Event Note (H) Evaluation Possible source of Sepsis: positive Pulmonary Assessment/Plan Problem List (1) Neutropenic fever: Impression: Selected Entries 12/04/23 13:39 12/04/23 15:08 12/04/23 15:09 Temperature 38.1 C H 38.6 C H 38.6 C H 12/04/23 16:21 12/04/23 20:08 12/04/23 21:43 Temperature 38.6 C H 37.0 C 37 C 12/05/23 00:07 12/05/23 08:33 Temperature 37.0 C 36.8 C Last chemotherapy was 1 week ago today. Tmax of 38.6 here. The remainder of her vital signs are grossly within normal limits. Neutropenic precautions have been instituted. We will follow her counts. On admission her white blood cell count is 300. Her ANC is 0 at the time of admission. She is improving to an ANC count of 100 today. Will continue to follow. 2 Laboratory Tests 12/04/23 12/05/23 13:53 10:12 WBC 0.3 L* 0.5 L* Neutrophils # (Manual) 0.0 L* 0.1 L* (2) Community acquired pneumonia: Impression: She is continuing on IV antibiotics. She has occasional cough. She has defervesced. She is not developing any hypoxia. Will continue treatment with cefepime and azithromycin. Qualifiers: Laterality: unspecified laterality Qualified Code(s): J18.9 - Pneumonia, unspecified organism (3) Mucositis (ulcerative) due to antineoplastic therapy: Impression: I have started Magic Mouthwash with Nystatin this AM. New complaints of discomfort this AM (4) Severe protein-calorie malnutrition: Impression: She has had significant weight loss and decreased oral intake with her T-cell lymphoma and complications related to chemotherapy. She is not eating well today due to her mucositis. Will treat her mucositis and encouraged her to take p.o. She uses mirtazapine as an outpatient that she takes as needed to stimulate appetite. (5) Anemia: Impression: Laboratory Tests 12/04/23 12/04/23 12/05/23 09:57 13:53 10:12 Hgb 7.7 L 6.9 L* 5.6 L* Her hemoglobin has fallen since admission. Possibly resulting from her chemotherapy possibly resulting from dilutional effects. I have ordered 2 units of packed red blood cells today. Will repeat CBC in the a.m. Qualifiers: Anemia type: other cause Other causes of anemia: antineoplastic chemotherapy Qualified Code(s): D64.81 - Anemia due to antineoplastic chemotherapy; T45.1X5A - Adverse effect of antineoplastic and immunosuppressive drugs, initial encounter (6) T-cell lymphoma: Impression: Actively undergoing chemotherapy. Her hospitalization is a direct result of complications related to this. (7) Hypertension: Impression: Selected Entries 12/04/23 20:08 12/05/23 00:07 12/05/23 08:33 Blood Pressure [Right Radial artery] 109/64 121/66 116/67 12/05/23 11:17 12/05/23 11:31 12/05/23 13:58 Blood Pressure [Right Radial artery] 128/70 121/67 136/74 H She is on an RAJWINDER inhibitor at home. I have held this inpatient. Her blood pressures at this time do not support reinstitution. Qualifiers: Hypertension type: primary hypertension Qualified Code(s): I10 - Essential (primary) hypertension (8) GERD (gastroesophageal reflux disease): Impression: Continue home PPI Qualifiers: Esophagitis presence: esophagitis presence not specified Qualified Code(s): K21.9 - Gastro-esophageal reflux disease without esophagitis
[2023-12-05 10:27] LABS: BASOPHILS % (AUTO) 1.9 %; EOSINOPHILS % (AUTO) 3.8 %; LYMPHOCYTES % (AUTO) 41.5 %; MEAN CORPUSCULAR HEMOGLOBIN 30.4 pg (27.0-31.0); MEAN CORPUSCULAR HGB CONC 34.6 g/dL (32.0-36.0); MEAN PLATELET VOLUME 9.4 fL (7.9-10.8); MONOCYTES % (AUTO) 26.4 %; NEUTROPHILS % (AUTO) 22.6 %; PLT - PLATELET COUNT 36 10^3/uL (130-450); RED BLOOD COUNT 1.84 10^6/uL (4.20-5.40); RED CELL DISTRIBUTION WIDTH 17.3 % (12.0-15.0)
[2023-12-05] MEDS: MAGIC MOUTHWASH (NYSTATIN) 120 ML BOTTLE PO SCH (10:31)
[2023-12-05 10:36] LABS: HCT - HEMATOCRIT 16.2 % (37.0-47.0); HGB - HEMOGLOBIN 5.6 g/dL (12.0-16.0); WHITE BLOOD COUNT 0.5 x10^3/uL (4.8-10.8)
[2023-12-05 10:38] LABS: ABNORMAL LYMPHS % (MANUAL) 0 %
[2023-12-05 10:40] LABS: CALCIUM 8.4 mg/dL (8.5-10.3); CREATININE 0.5 mg/dL (0.6-1.3); POTASSIUM 3.8 mmol/L (3.5-4.5)
[2023-12-05] MEDS: SODIUM CHLORIDE FLUSH 0.9% 10 ML SYRINGE IVP SCH (10:40)
[2023-12-05 10:58] LABS: BAND NEUTROPHILS % (MANUAL) 16 %; BASOPHILS % (MANUAL) 2 %; LYMPHOCYTES # (MANUAL) 0.3 10^3/uL (1.5-3.5); LYMPHOCYTES % (MANUAL) 50 %; MONOCYTES # (MANUAL) 0.1 10^3/uL (0.0-1.0); MYELOCYTES % (MANUAL) 2 %; NEUTROPHILS # (MANUAL) 0.1 10^3/uL (1.5-6.6); PLATELET ESTIMATE, MANUAL DECREASED (<130,000) (NORMAL); PLATELET MORPHOLOGY NORMAL APPEARANCE (NORMAL)
[2023-12-05] MEDS: diphenhydrAMINE INJ 50 MG/ML VIAL IVP ONE ×2 (10:58→17:58)
[2023-12-05 10:59] LABS: DIFFERENTIAL COMMENT MANUAL DIFFERENTIAL
[2023-12-05] MEDS: SODIUM CHLORIDE 0.9% 500 ML IV PRN (11:00)
--- NOTE | 2023-12-05 13:53 | PHARMACY PROGRESS NOTE ---
Best Possible Medication History Admit Date and Time: 12/04/23 [id number] [facility] Statement: Pt interview (PhT) completed and [employer] insurance records reviewed for BPM. As the person ultimately responsible for medication therapy, providers are able to order a medication from an existing home medication list in [facility] via the "Reconcile Routine" prior to Confirmation of that medication by windows desktop support. Such practice is discouraged except when the physician, in their clinical judgment, deems that a medical need exists for a medication without regard to previous use.
[2023-12-05] MEDS: SODIUM CHLORIDE FLUSH 0.9% 10 ML SYRINGE IVP PRN (17:59)
[2023-12-05] MEDS: MIRTAZAPINE 15 MG TABLET PO SCH (20:43)
[2023-12-06] MEDS: LIDOCAINE/PRILOCAINE 2.5% CREAM 5 GM TUBE TOP ONE (04:10)
[2023-12-06 06:41] LABS: BASOPHILS % (AUTO) 2.7 %; EOSINOPHILS % (AUTO) 1.8 %; HCT - HEMATOCRIT 22.7 % (37.0-47.0); HGB - HEMOGLOBIN 7.9 g/dL (12.0-16.0); LYMPHOCYTES % (AUTO) 22.1 %; MEAN CORPUSCULAR HEMOGLOBIN 29.7 pg (27.0-31.0); MEAN CORPUSCULAR HGB CONC 34.8 g/dL (32.0-36.0); MEAN CORPUSCULAR VOLUME 85.3 fL (81.0-99.0); MONOCYTES % (AUTO) 16.8 %; RED BLOOD COUNT 2.66 10^6/uL (4.20-5.40); RED CELL DISTRIBUTION WIDTH 15.9 % (12.0-15.0)
[2023-12-06 06:45] LABS: PLT - PLATELET COUNT 30 10^3/uL (130-450); WHITE BLOOD COUNT 1.1 x10^3/uL (4.8-10.8)
[2023-12-06 06:47] LABS: ABNORMAL LYMPHS % (MANUAL) 0 %
[2023-12-06 06:51] LABS: CALCIUM 8.5 mg/dL (8.5-10.3); CREATININE 0.4 mg/dL (0.6-1.3); MAGNESIUM 1.8 mg/dL (1.7-2.3); POTASSIUM 3.9 mmol/L (3.5-4.5)
[2023-12-06 07:19] LABS: BAND NEUTROPHILS % (MANUAL) 9 %; LYMPHOCYTES # (MANUAL) 0.3 10^3/uL (1.5-3.5); LYMPHOCYTES % (MANUAL) 31 %; MONOCYTES # (MANUAL) 0.2 10^3/uL (0.0-1.0)
[2023-12-06 07:20] LABS: DIFFERENTIAL COMMENT MANUAL DIFFERENTIAL; METAMYELOCYTES % (MANUAL) 2 %; NEUTROPHILS # (MANUAL) 0.5 10^3/uL (1.5-6.6); PLATELET ESTIMATE, MANUAL DECREASED (<130,000) (NORMAL); PLATELET MORPHOLOGY NORMAL APPEARANCE (NORMAL)
--- NOTE | 2023-12-06 08:43 | PROVIDER PROGRESS NOTE ---
Subjective Prog Note Date Prog Note Date: 12/06/23 Prog Note Time: 08:41 Subjective Pt reports feeling: Improved Subjective: she feels slightly better. She complains of generalized abdominal discomfort. She has decreased discomfort in her mouth but continues to have difficulty with later phases of her swallowing she complains of some pain underneath her sternum when she swallows and just generalized discomfort in her belly. She does not think that this is nausea. She does not feel constipated and she continues to have small but normal bowel movements. She is happy that her blood counts are improving. She was due to have a PET scan 2 days ago in [place] she is got this scheduled for the and is looking forward to getting to [place] on the for her PET scan. She is hoping she will be well out of the hospital by that time. Current Medications Current Medications Current Medications: Current Medications Generic Name Dose Route Start Last Admin Trade Name Freq PRN Reason Stop Dose Admin Acetaminophen 650 mg 12/04/23 15:41 12/04/23 18:38 Acetaminophen 325 Mg Tablet PO 650 mg Q4HR PRN Administration Pain 1 to 4, or Fever Acyclovir 400 mg 12/04/23 21:00 12/05/23 20:42 Acyclovir 200 Mg Capsule PO 400 mg BID JARED Administration Fluticasone Propionate 1 sprays 12/05/23 09:00 12/05/23 08:30 Fluticasone Nasal [place] TR 1 spr DAILY JARED Administration Heparin Sodium (Beef Lung) 300 - 500 unit 12/05/23 17:10 Heparin Flush 500 Units/5 Ml Syringe IVP PRN PRN Port Protocol (>24 hours) Heparin Sodium (Porcine) 5,000 unit 12/04/23 21:00 12/05/23 20:24 Heparin 5,000 Unit/Ml Vial SUBQ Not Given BID JARED Azithromycin 500 mg/ Sodium 250 mls @ 250 mls/hr 12/04/23 17:00 12/05/23 15:27 Chloride IV 12/06/23 09:59 Infused DAILY JARED Infusion Cefepime HCl 1 gm/ Sodium 100 mls @ 200 mls/hr 12/04/23 21:00 12/06/23 04:59 Chloride IV Infused Q8H JARED Infusion Sodium Chloride 500 mls @ 20 mls/hr 12/05/23 11:06 12/05/23 11:00 Normal Saline 0.9% IV 20 mls/hr Q24H PRN Administration TKO RATE Magnesium Oxide 400 mg 12/06/23 08:00 Magnesium Oxide 400 Mg Tablet PO DAILY[facility] Mirtazapine 7.5 mg 12/05/23 21:00 12/05/23 20:43 Mirtazapine 15 Mg Tablet PO Not Given QPM JARED Multi-Ingredient Mouthwash/Gargle 30 ml 12/05/23 10:00 12/06/23 06:29 Magic Mouthwash (Nystatin) 120 Ml Bottle PO Not Given Q4H JARED Multivitamins/Minerals 1 tab 12/05/23 08:00 12/05/23 08:30 Multivitamin W/Minerals Tablet PO 1 tab DAILY[facility] Administration Ondansetron HCl 4 mg 12/04/23 15:41 12/04/23 18:38 Ondansetron Odt 4 Mg Tablet TL 4 mg Q6HR PRN Administration Nausea / Vomiting Pantoprazole Sodium 40 mg 12/05/23 07:00 12/06/23 06:27 Pantoprazole 40 Mg Tablet PO 40 mg BIDAC JARED Administration Sodium Chloride 10 ml 12/04/23 15:41 12/04/23 22:01 Sodium Chloride Flush 0.9% 10 Ml Syringe IVP 10 ml PRN PRN Administration NEEDED PER PROVIDER ORDERS Sodium Chloride 10 ml 12/04/23 17:00 12/06/23 00:16 Sodium Chloride Flush 0.9% 10 Ml Syringe IVP 10 ml 0100,0900,1700 JARED Administration Sodium Chloride 10 ml 12/05/23 09:16 12/05/23 17:59 Sodium Chloride Flush 0.9% 10 Ml Syringe IVP 10 ml PRN PRN Administration NEEDED PER PROVIDER ORDERS Sodium Chloride 10 ml 12/05/23 10:00 12/06/23 04:19 Sodium Chloride Flush 0.9% 10 Ml Syringe IVP 10 ml Q8H JARED Administration Objective Vital Signs/Intake & Output Vital Signs: Vital Signs x48h Temp Pulse Resp BP 12/06/23 05:00 36.7 C 89 14 121/62 Intake & Output: Intake & Output 12/04/23 12/05/23 12/06/23 12/07/23 05:59 05:59 05:59 05:59 Intake Total 1500 / 1500 1790 / 1790 Balance 1500 / 1500 1789 Weight (kg) 66.7 kg Objective General Appearance: positive No acute distress and Alert Eyes Bilateral: positive Normal inspection ENT: positive ENT inspection nml and No signs of dehydration Neck: positive Nml inspection Respiratory: positive Chest non-tender, No respiratory distress and Breath sounds nml Cardiovascular: positive Regular rate & rhythm Abdomen: positive Nml bowel sounds and Tenderness (Mild diffuse lower tenderness.) Back: positive Nml inspection Skin: positive Color nml Extremities: positive Non-tender and No pedal edema Neurologic/Psychiatric: positive Oriented x3 Lab Results 12/06/23 06:30 12/06/23 06:30 Other Labs: Lab Results x24hrs 12/06/23 12/06/23 12/05/23 Range/Units 06:30 06:30 10:12 WBC 1.1 L* (4.8-10.8) x10^3/uL RBC 2.66 L (4.20-5.40) 10^6/uL Hgb 7.9 L (12.0-16.0) g/dL Hct 22.7 L (37.0-47.0) % MCV 85.3 (81.0-99.0) fL MCH 29.7 (27.0-31.0) pg MCHC 34.8 (32.0-36.0) g/dL RDW 15.9 H (12.0-15.0) % Plt Count 30 L* (130-450) 10^3/uL MPV 12.0 H (7.9-10.8) fL Neut # (Auto) Not Reportable Lymph # (Auto) Not Reportable [place] # (Auto) Not Reportable Eos # (Auto) Not Reportable Baso # (Auto) Not Reportable Absolute Nucleated RBC Not Reportable Total Counted 100 Band Neuts % (Manual) 9 (0 - 10) % Abnorm Lymph % (Manual) 0 % Metamyelocytes % 2 H ( - 0) % Myelocytes % ( - 0) % Nucleated RBC % Not Reportable Neutrophils # (Manual) 0.5 L* (1.5-6.6) 10^3/uL Lymphocytes # (Manual) 0.3 L (1.5-3.5) 10^3/uL Monocytes # (Manual) 0.2 (0.0-1.0) 10^3/uL Eosinophils # (Manual) 0.0 (0-0.7) 10^3/uL Basophils # (Manual) 0.0 (0-0.1) 10^3/uL Differential Comment MANUAL DIFFERENTIAL Platelet Estimate DECREASED (<130,000) (NORMAL) Platelet Morphology NORMAL APPEARANCE (NORMAL) RBC Morph Micro Appear 2+ HYPOCHROMASIA 2+ ANISOCYTOSIS 1+ HYPOCHROMASIA (NORMAL) Sodium 135 133 L (135-145) mmol/L Potassium 3.9 3.8 (3.5-4.5) mmol/L Chloride 103 102 (101-111) mmol/L Carbon Dioxide 26 27 (21-32) mmol/L Anion Gap 6.0 4.0 L (6-13) BUN 14 12 (6-20) mg/dL Creatinine 0.4 L 0.5 L (0.6-1.3) mg/dL Estimated GFR (MDRD) 159 123 (>89) Glucose 89 93 (74-104) mg/dL Calcium 8.5 8.4 L (8.5-10.3) mg/dL Magnesium 1.8 (1.7-2.3) mg/dL Blood Type Antibody Screen Crossmatch IS Only 12/05/23 12/04/23 Range/Units 10:12 15:05 WBC 0.5 L* (4.8-10.8) x10^3/uL RBC 1.84 L (4.20-5.40) 10^6/uL Hgb 5.6 L* (12.0-16.0) g/dL Hct 16.2 L* (37.0-47.0) % MCV 88.0 (81.0-99.0) fL MCH 30.4 (27.0-31.0) pg MCHC 34.6 (32.0-36.0) g/dL RDW 17.3 H (12.0-15.0) % Plt Count 36 L (130-450) 10^3/uL MPV 9.4 (7.9-10.8) fL Neut # (Auto) Not Reportable Lymph # (Auto) Not Reportable [place] # (Auto) Not Reportable Eos # (Auto) Not Reportable Baso # (Auto) Not Reportable Absolute Nucleated RBC Not Reportable Total Counted 50 Band Neuts % (Manual) 16 H (0 - 10) % Abnorm Lymph % (Manual) 0 % Metamyelocytes % ( - 0) % Myelocytes % 2 H ( - 0) % Nucleated RBC % Not Reportable Neutrophils # (Manual) 0.1 L* (1.5-6.6) 10^3/uL Lymphocytes # (Manual) 0.3 L (1.5-3.5) 10^3/uL Monocytes # (Manual) 0.1 (0.0-1.0) 10^3/uL Eosinophils # (Manual) 0.0 (0-0.7) 10^3/uL Basophils # (Manual) 0.0 (0-0.1) 10^3/uL Differential Comment MANUAL DIFFERENTIAL Platelet Estimate DECREASED (<130,000) (NORMAL) Platelet Morphology NORMAL APPEARANCE (NORMAL) RBC Morph Micro Appear 1+ ANISOCYTOSIS (NORMAL) Sodium (135-145) mmol/L Potassium (3.5-4.5) mmol/L Chloride (101-111) mmol/L Carbon Dioxide (21-32) mmol/L Anion Gap (6-13) BUN (6-20) mg/dL Creatinine (0.6-1.3) mg/dL Estimated GFR (MDRD) (>89) Glucose (74-104) mg/dL Calcium (8.5-10.3) mg/dL Magnesium (1.7-2.3) mg/dL Blood Type O NEGATIVE Antibody Screen NEGATIVE Crossmatch IS Only See Detail ABX Reporting Has patient been on IV antibiotics over the past 48 hours?: Yes Sepsis Event Note (H) Evaluation Possible source of Sepsis: positive Pulmonary Assessment/Plan Problem List (1) Neutropenic fever: Impression: She has been afebrile for greater than 24 hours Last chemotherapy was >1 week ago. Tmax of 38.6 here. Tachycardia is resolving. She has not experienced any hypotension. Her oxygen saturations are within normal limits. Systemically she is feeling better. She does have the abdominal pain which I we will be discussing below. Neutropenic precautions have been instituted. 2 Laboratory Tests 12/04/23 12/05/23 12/06/23 13:53 10:12 06:30 WBC 0.3 L* 0.5 L* 1.1 L* Neutrophils # (Manual) 0.0 L* 0.1 L* 0.5 L* .Repeat CBC in a.m..Although her ANC count is increasing, she has this new abdominal pain today. I think as long as her ANC increases and we ensure the abdominal pain is nothing catastrophic we should be able to discharge her to home tomorrow. (2) Community acquired pneumonia: Impression: Zithromax day 3 of 3 Cefepime day 3 of 5. She is not developing any hypoxia. She has not developed any cough. Qualifiers: Laterality: unspecified laterality Qualified Code(s): J18.9 - Pneumonia, unspecified organism (3) Abdominal pain: Impression: She complains of generalized discomfort. She states it hurts from the base of her neck all the way down to her lower abdomen. She says the pain is just there. She says it is not nausea it is pain she denies it being crampy. It does not come and go it is just always there. She has some lower abdominal tenderness. Given her neutropenia I think it is safest to get a CT of the abdomen pelvis this morning to assure there is no intra-abdominal infection. This afternoon we have the CT result back. It does have some suggestion of colitis. She was incontinent of stool once this afternoon but this was after administration of oral CT contrast. If she has a second episode of loose stool we will collect that for stool culture and PCR. I am starting her on metronidazole 500 mg IV 3 times daily. I have counseled the patient on these findings. Qualifiers: Abdominal location: unspecified location Qualified Code(s): R10.9 - Unspecified abdominal pain (4) Mucositis (ulcerative) due to antineoplastic therapy: Impression: Symptoms are improving she is more comfortable swallowing. She states that she does not want to waste the Magic mouthwash. I encouraged her to use it. I encouraged her to swish and swallow this. I think she is having some esophagitis symptoms which is why she is having difficulty with her later phases of swallowing and having some substernal discomfort. She is on Protonix twice daily in addition to the Magic mouthwash. (5) Severe protein-calorie malnutrition: Impression: She has had significant weight loss and decreased oral intake with her T-cell lymphoma and complications related to chemotherapy. She is having difficulty eating well secondary to her chemotherapy. She has completed all 6 cycles of her chemotherapy and hopefully will improve and be able to eat and gain weight.. She uses mirtazapine as an outpatient that she takes as needed to stimulate appetite. (6) Anemia: Impression: She was transfused 2 units of leukocyte reduced irradiated RBCs yesterday. Her hemoglobin improved. She feels better today.Laboratory Tests 12/04/23 12/04/23 12/05/23 09:57 13:53 10:12 Hgb 7.7 L 6.9 L* 5.6 L* 12/06/23 06:30 Hgb 7.9 L Qualifiers: Anemia type: other cause Other causes of anemia: antineoplastic chemotherapy Qualified Code(s): D64.81 - Anemia due to antineoplastic chemotherapy; T45.1X5A - Adverse effect of antineoplastic and immunosuppressive drugs, initial encounter (7) T-cell lymphoma: Impression: Actively undergoing chemotherapy. Her hospitalization is a direct result of complications related to this. (8) Hypertension: Impression: Selected Entries 12/05/23 11:17 12/05/23 11:31 12/05/23 13:58 Blood Pressure [Right Radial artery] 128/70 121/67 136/74 H 12/05/23 15:48 12/05/23 18:02 12/05/23 18:22 Blood Pressure [Right Radial artery] 122/68 124/65 118/69 12/05/23 20:39 12/06/23 05:00 Blood Pressure [Right Radial artery] 129/74 121/62 I will continue to hold home RAJWINDER inhibitor as her blood pressure is less than 140. Qualifiers: Hypertension type: primary hypertension Qualified Code(s): I10 - Essential (primary) hypertension (9) GERD (gastroesophageal reflux disease): Impression: She is on Protonix twice daily. She is complaining of dysphagia and abdominal pain today. I will discontinue the Protonix. I have also encouraged her to swish and swallow the Magic mouthwash as there may be some component of esophagitis related to her chemotherapy. Qualifiers: Esophagitis presence: esophagitis presence not specified Qualified Code(s): K21.9 - Gastro-esophageal reflux disease without esophagitis
[2023-12-06] MEDS: MAGNESIUM OXIDE 400 MG TABLET PO SCH (08:50)
[2023-12-06] MEDS ORDERED: iohexoL-300 100 ML VIAL ONE (10:54)
[2023-12-06] MEDS ORDERED: DIATRIZOATE MEGLU/DIATRIZO SOD 30 ML BOTTLE PO ONE (11:32)
[2023-12-06] MEDS: BACITRACIN ZINC OINT 1 PACKET TOP SCH (14:34)
[2023-12-06] MEDS: iohexoL-300 100 ML VIAL IVP ONE (15:07)
[2023-12-06] MEDS: DIATRIZOATE MEGLU/DIATRIZO SOD 30 ML BOTTLE PO ONE (15:08)
--- NOTE | 2023-12-06 16:00 | CT Report ---
PROCEDURE: CT Abdomen/Pelvis W INDICATIONS: abdominal pain in a neutropenic patient CONTRAST: omni 300, 100 TECHNIQUE: After the administration of intravenous contrast, a CT scan of the abdomen and pelvis was performed. Images were recorded and evaluated at appropriate window settings. Reformats: coronal and sagittal. F or radiation dose reduction, the following was used: automated exposure control, adjustment of mA and /or kV according to patient size. COMPARISON: CT 10/03/2023 FINDINGS: Image quality: Diagnostic. Lower chest: New 6 x 3 mm subpleural nodule in the left lower lobe (series 8, image 10). Stable 5 mm right middle lobe nodule (series 8, image 5). Liver: No solid mass. Gallbladder: Gallbladder hydrops. No radiopaque stones. Mild intrahepatic and extrahepatic dilation, with the common bile duct measuring 9 mm. Small duodenal diverticulum present within the region of th e ampulla, measuring approximately 2.3 x 2.0 cm. Biliary tree: No intrahepatic or extrahepatic dilation, accounting for age. Spleen: Enlarged. Pancreas: No pancreatic ductal dilation. Adrenals: No adrenal nodule. Kidneys and ureters: No hydronephrosis. No renal cystic lesion which requires follow up. No solid mas s. Stomach, bowel and peritoneum: Diffuse large bowel wall thickening. Normal appendix. No pathologic fr ee fluid. Small duodenal diverticulum present within the region of the ampulla, measuring approximate ly 2.3 x 2.0 cm. Lymph nodes: No central or retroperitoneal adenopathy. Vessels: No infrarenal aortic aneurysm. Patent portal vein. PELVIS Reproductive organs: Unremarkable. Bladder: No abnormal wall thickening, accounting for underdistention. Pelvic lymph nodes: No pelvic adenopathy by size criteria. Bones: No aggressive osseous abnormality. Other: No significant ventral or inguinal hernia. IMPRESSION: Diffuse bowel wall thickening, concerning for colitis. This could be infectious or inflammatory. Nisha elate with use of immunotherapy. Extra hepatic and intrahepatic biliary dilation, stable from prior. Questionable mild obstructing pro cess in the pancreatic head with a 2.3 x 2.0 cm duodenal diverticulum being present. Splenomegaly, likely related to underlying lymphoma. New 6 x 3 mm a pleural nodule in the left lower lobe, indeterminate in the setting of malignancy. Att ention on follow-up. Reviewed by: Augie Barahona MD on 12/06/2023 3:58 PM PDT Approved by: Augie Barahona MD on 12/06/2023 3:58 PM PDT Station ID: [id number]
[2023-12-06] MEDS: metroNIDAZOLE 500 MG/100 ML 500 MG/100 ML BAG IV SCH (17:09)
[2023-12-06 21:47] VITALS: O2SAT 98
[2023-12-07 06:10] LABS: BASOPHILS % (AUTO) 1.6 %; EOSINOPHILS % (AUTO) 1.1 %; HCT - HEMATOCRIT 21.5 % (37.0-47.0); HGB - HEMOGLOBIN 7.4 g/dL (12.0-16.0); LYMPHOCYTES % (AUTO) 9.6 %; MEAN CORPUSCULAR HEMOGLOBIN 29.6 pg (27.0-31.0); MEAN CORPUSCULAR HGB CONC 34.4 g/dL (32.0-36.0); MEAN PLATELET VOLUME 10.3 fL (7.9-10.8); MONOCYTES % (AUTO) 12.8 %; NEUTROPHILS % (AUTO) 66.4 %; RED CELL DISTRIBUTION WIDTH 16.2 % (12.0-15.0)
[2023-12-07 06:23] LABS: PLT - PLATELET COUNT 31 10^3/uL (130-450); WHITE BLOOD COUNT 1.9 x10^3/uL (4.8-10.8)
[2023-12-07 06:24] LABS: SLIDE REVIEW? Indicated
[2023-12-07 06:25] LABS: ABNORMAL LYMPHS % (MANUAL) 0 %
[2023-12-07 06:26] LABS: CALCIUM 8.3 mg/dL (8.5-10.3); CREATININE 0.5 mg/dL (0.6-1.3); POTASSIUM 3.8 mmol/L (3.5-4.5)
[2023-12-07 06:48] LABS: BAND NEUTROPHILS % (MANUAL) 26 %; BASOPHILS % (MANUAL) 1 %; LYMPHOCYTES # (MANUAL) 0.2 10^3/uL (1.5-3.5); LYMPHOCYTES % (MANUAL) 13 %; METAMYELOCYTES % (MANUAL) 2 %; MONOCYTES # (MANUAL) 0.2 10^3/uL (0.0-1.0); MYELOCYTES % (MANUAL) 2 %; NEUTROPHILS # (MANUAL) 1.4 10^3/uL (1.5-6.6)
[2023-12-07 06:50] LABS: DIFFERENTIAL COMMENT MANUAL DIFFERENTIAL; PLATELET ESTIMATE, MANUAL DECREASED (<130,000) (NORMAL); PLATELET MORPHOLOGY NORMAL APPEARANCE (NORMAL); RBC MORPHOLOGY (MULTIPLE) NORMAL APPEARANCE (NORMAL); WBC MORPHOLOGY (MULTIPLE) 1+ DOHLE BODIES (NORMAL)
--- NOTE | 2023-12-07 08:34 | Discharge Summary ---
Discharge Summary Admit Date: 12/04/23 Discharge Date: 12/07/23 Discharging Provider: Edwin Pineda NP Primary Care Provider: Nisha Colbert Code Status: Do Not Attempt Resuscitation DIAGNOSES Admission Diagnoses: Neutropenic fever Community-acquired pneumonia Severe protein calorie malnutrition Anemia T-cell lymphoma Hypertension GERD Discharge Diagnoses with Status of Each Condition: Community-acquired pneumoniaactive GERDchronic Hypertensionchronic Severe protein calorie malnutritionchronic Neutropenia associated with mucusitusactive Anemiachronic T-cell lymphomachronic Abdominal painactive HPI History of Present Illness: 68-year-old female with history of T-cell lymphoma undergoing chemotherapy presented to the hospital with Fever, cough. In the ER, she was noted to have a possible atypical pneumonia. She was admitted to medicine for neutropenic fever, as well as less likely atypical community-acquired pneumonia. HOSPITAL COURSE Hospital Course: She was admitted and placed in neutropenic precautions, and her ANC/WBC was monitored daily. She developed abdominal pain, and CT showed colitis, for which she was started on Flagyl. Today, WBC, ANC improved, and patient will be discharged home ALLERGIES Allergies Allergy/AdvReac Type Severity Reaction Status Date / Time Sulfa (Sulfonamide Allergy Anaphylaxis Verified 12/04/23 11:38 Antibiotics) MEDICATIONS Ambulatory Orders Medication Instructions Recorded Confirmed Magic Mouthwash 1 ea PO TID PRN Pain 1-4 08/21/23 12/05/23 acyclovir 400 mg tablet 400 mg PO BID 30 days #60 tabs 09/18/23 12/05/23 acetaminophen 650 mg 650 mg PO BID 11/08/23 12/05/23 tablet,extended release (Tylenol Arthritis Pain) zinc sulfate 50 mg zinc (220 mg) 220 mg PO DAILY 11/08/23 12/05/23 capsule [id number] 1 tab PO DAILYWM 11/15/23 12/05/23 fumarate 19 mg-folic acid 400 mcg tablet (Therapeutic-M) Omeprazole 20 mg PO 2XD Indigestion 12/04/23 12/05/23 benzonatate 100 mg capsule 100 mg PO TID PRN cough 12/05/23 12/05/23 mirtazapine 7.5 mg tablet 7.5 mg PO DAILY PM 12/05/23 12/05/23 ondansetron HCl 8 mg tablet 8 mg PO Q12H PRN nausea and 12/05/23 12/05/23 vomiting zinc gluconate 50 mg tablet 50 mg PO DAILY 12/05/23 12/05/23 amoxicillin-potassium clavulanate 1 tab PO BID #60 tabs 12/07/23 1,000 mg-62.5 mg tablet,ext.rel 12hr (Augmentin XR) metronidazole 500 mg tablet 750 mg (1.5 x 500 mg) PO TID #60 12/07/23 tabs PHYSICAL EXAM AT DISCHARGE General Appearance: positive No acute distress Respiratory: positive Chest non-tender Cardiovascular: positive Regular rate & rhythm Peripheral Pulses: positive 2+ Abdomen: positive Non-tender Extremities: positive Non-tender Neurologic/Psychiatric: positive Oriented x3 LABS 12/07/23 05:45 12/07/23 05:45 DIAGNOSTIC IMAGING Diagnostic Imaging Results: Final report reviewed Diagnostic Imaging Results Comments: Chest x-ray, CT abdomen SEPSIS Possible source of Sepsis: Pulmonary FOLLOW UP Follow Up: With PCP/oncology TIME SPENT Time Spent in Discharge (Minutes): 25 Discharge Plan Discharge Patient Disposition: Home, Self Care Condition: Fair Medically Cleared Date:: 12/07/23 Prescriptions: New amoxicillin-pot clavulanate [Augmentin XR] 1,000-62.5 mg tablet extended release 12 hr 1 tab PO BID Qty: 60 0RF metronidazole 500 mg tablet 750 mg PO TID Qty: 60 0RF Continued Magic Mouthwash 120 ML bottle 1 ea PO TID PRN (Reason: Pain 1-4) Patient Comments: 08/17/23 refilled at [facility] ldt/lb PER [facility] Rx Instructions: Swish and spit 1 tbsp (15ml) 4-6 times daily PRN. Omeprazole 20 MG Tablet. 20 mg PO 2XD Patient Comments: 09/09/23 #90+3rf called to [facility] acyclovir 400 MG tablet 400 mg PO BID 30 Days Qty: 60 3RF Rx Instructions: Take 400mg by mouth every 12 hours. acetaminophen [Tylenol Arthritis Pain] 650 MG tablet extended release 650 mg PO BID zinc sulfate 220 MG capsule 220 mg PO DAILY Therapeutic-M 1 TAB tablet 1 tab PO DAILYWM 0RF ondansetron HCl 8 mg tablet 8 mg PO Q12H PRN (Reason: nausea and vomiting) Patient Comments: TAKE 1 TABLET BY MOUTH EVERY 12 HOURS NEEDED FOR NAUSEA AND VOMITING mirtazapine 7.5 mg tablet 7.5 mg PO DAILY PM Patient Comments: TAKE 1 TABLET BY MOUTH EVERY DAY AT BEDTIME zinc gluconate 50 mg tablet 50 mg PO DAILY benzonatate 100 mg capsule 100 mg PO TID PRN (Reason: cough) Patient Comments: TAKE 1 CAPSULE BY MOUTH THREE TIMES DAILY NEEDED FOR COUGH Rx Instructions: Take 1 Capsule by mouth three times daily as needed for cough Activity Restrictions: No Restrictions Diet: Regular Health Concerns: You are a 68-year-old female who came in with a neutropenic fever secondary to your chemotherapy. You were also found to have a pneumonia which was treated with antibiotics. On Saturday, we found a colitis going on which we have placed you on antibiotics for. Your numbers have improved, and today we are sending you home to follow-up with your oncologist Care Plan Goals: I would like you to try and eat as much as possible, focusing on calorie and protein dense foods. I have ordered antibiotics similar to what you have been receiving here in IV form. Continue supportive care for your other ongoing problems Patient Instructions: Neutropenia, Pneumonia, ED Gastroenteritis Bacterial Stand Alone Forms: PCP List Follow-up Care: Kang Oropeza MD [Primary Care Provider] -
[2023-12-08 04:08] LABS: ADENOVIRUS F 40/41 Not Detected (Not Detected); ASTROVIRUS Not Detected (Not Detected); C DIFFICILE TOXIN A/B Detected (Not Detected); CAMPYLOBACTER Not Detected (Not Detected); CRYPTOSPORIDIUM Not Detected (Not Detected); CYCLOSPORA CAYETANENSIS Not Detected (Not Detected); ENTAMOEBA HISTOLYTICA Not Detected (Not Detected); ENTEROAGGREGATIVE E COLI Not Detected (Not Detected); ENTEROPATHOGENIC E COLI Not Detected (Not Detected); ENTEROTOXIGENIC E COLI Not Detected (Not Detected); GIARDIA LAMBLIA Not Detected (Not Detected); NOROVIRUS GI/GII Not Detected (Not Detected); PLESIOMONAS SHIGELLOIDES Not Detected (Not Detected); ROTAVIRUS A Not Detected (Not Detected); SALMONELLA Not Detected (Not Detected); SAPOVIRUS Not Detected (Not Detected); SHIGA-TOXIN-PRODUCING E COLI Not Detected (Not Detected); SHIGELLA/ENTEROINVASIVE E COLI Not Detected (Not Detected); VIBRIO Not Detected (Not Detected); VIBRIO CHOLERAE Not Detected (Not Detected); YERSINIA ENTEROCOLITICA Not Detected (Not Detected)
== END 2023-12-07 12:11 | disposition home or self-care (01) | DRG 871 ==
LOC: ED 11:22 → MS2 16:56
PROVIDERS: ADMIT Physician Assistant Medical; ATTEND Physician Assistant Medical
DX: Z68.25 Body mass index [BMI] 25.0-25.9, adult; I10 Essential (primary) hypertension; A41.9 Sepsis, unspecified organism; J18.9 Pneumonia, unspecified organism; K21.9 Gastro-esophageal reflux disease without esophagitis; D70.9 Neutropenia, unspecified; Z20.822 Contact with and (suspected) exposure to COVID-19; D70.1 Agranulocytosis secondary to cancer chemotherapy; Z20.828 Contact with and (suspected) exposure to other viral communicable diseases; Z20.818 Contact with and (suspected) exposure to other bacterial communicable diseases; Z63.5 Disruption of family by separation and divorce; T45.1X5A Adverse effect of antineoplastic and immunosuppressive drugs, initial encounter; C85.80 Other specified types of non-Hodgkin lymphoma, unspecified site; Z79.899 Other long term (current) drug therapy; D64.81 Anemia due to antineoplastic chemotherapy; R50.81 Fever presenting with conditions classified elsewhere; E43 Unspecified severe protein-calorie malnutrition